=== PATIENT | female | born 1940 | race Caucasian/White ===

== ENCOUNTER 2020-10-04 13:21 | Day surgery (SDC) | payer MEDICARE ==
[2020-10-01 11:14] VITALS: BMI 23.0
[~2020-10-04 13:21] MED LIST: ALBUTEROL NEB (CONC) 2.5 MG/0.5 ML INHALATION ONE; ATROPINE SULFATE 0.4 MG/ML 1 ML VIAL IM ONE; LACTATED RINGERS 1,000 ML IV SCH; LIDOCAINE 1% (10MG/ML) FOR IV START INTRADERMA PRN; LIDOCAINE 2% (PF) 20 MG/ML 5 ML VIAL INHALATION ONE; LIDOCAINE VISCOUS 300 MG/15 ML CUP MUCOUS MEM ONE
[2020-10-04 13:55] LABS: Glucose,Whole Blood 104 mg/dL (75-99)
[2020-10-04] MEDS ORDERED: PROPOFOL 10 MG/ML 20 ML VIAL IV ONE (14:02)
[2020-10-04] MEDS ORDERED: LIDOCAINE 2% INJ 20 MG/ML INTRATRACH ONE (14:15)
[2020-10-04] MEDS ORDERED: ALBUTEROL NEBULIZED 2.5 MG/3 ML INHALATION ONE (14:49)
[2020-10-04 14:54] VITALS: TEMP 97
[2020-10-04 15:23] VITALS: RESP 16
[2020-10-04 15:46] VITALS: BP 140/68; PULSE 78
--- NOTE | 2020-10-04 22:42 | PCN ---
PROCEDURE NOTE PROCEDURE PERFORMED: Bronchoscopy, airway examination, therapeutic lavage, BAL, right middle lobe. OPERATORS: Dr. Navas and Dr. Gunderson. There was informed consent. There was universal timeout, Bryson Álvarez, BRIDGE WORKER provided general anesthesia. Once the patient was adequately sedated and being fully monitored, the bronchoscope was inserted through the left nostril. It passed through the left nasopharynx into the oropharynx. The hypopharynx was identified and topicalized. The anterior commissure, true cords, false cords, arytenoids, piriform sinuses, right and left, epiglottis, and valleculae all appeared relatively normal. Once topicalized, the bronchoscope was inserted through the glottic opening into the trachea. There were thick secretions noted throughout the trachea. The right and left mainstem were topicalized. The right upper lobe and its 3 segments, right middle lobe and its 2 segments, right lower lobe and its 5 segments, the left upper lobe proper and its 2 segments, the lingula and its 2 segments and the left lower lobe and its 4 segments were all evaluated. There were thick secretions noted throughout. They were suctioned. There was diffuse airway erythema and hyperemia. There was no dominant mass or tumor. There was no bleeding. The patient tolerated the procedure well. Thirty mL of fluid was recovered and will be sent to the laboratory for analysis. There was no immediate complication. The patient tolerated the procedure well. MMODL / IJN: [id number] /
--- NOTE | 2020-10-09 05:56 | CDI ---
Outpatient Documentation Clarification Form Date: 10/09/20 CDS/Delivery Driver Name: Caroline Ventura Phone: If any questions, call Sue Fermin Field Administrative Assistant at [phone] Patient Name: Madonna Haddad Admit Date: 10/04/20 Discharge Date: 10/04/20 ATTENTION: The [facility] Coding Staff appreciate your assistance in clarifying documentation. Please respond to the clarification below the line at the bottom and electronically sign. The [facility] Coding staff will review the response and follow-up if needed. Please note: Queries are made part of the Legal Health Record. If you have any questions, please contact the Field Administrative Assistant. Dear Dr. Navas, Please provide clarification as to the procedure performed On the procedure note under Procedure Performed it is listed as therapeutic lavage, BAL, right middle lobe I do not see any documentation for this in the body of the report. Please clarify. Thank you for your kind consideration. MTDD
--- NOTE | 2020-10-11 12:10 | CDI ---
It says in the report Outpatient Documentation Clarification Form Date: 10/09/20 CDS/Junior Manufacturing Engineer Name: Caroline Ventura Phone: If any questions, call Sue Fermin Junior Software Engineer at [phone] Patient Name: Madonna Haddad Admit Date: 10/04/20 Discharge Date: 10/04/20 ATTENTION: The [facility] Coding Staff appreciate your assistance in clarifying documentation. Please respond to the clarification below the line at the bottom and electronically sign. The [facility] Coding staff will review the response and follow-up if needed. Please note: Queries are made part of the Legal Health Record. If you have any questions, please contact the Junior Software Engineer. Dear Dr. Navas, Please provide clarification as to the procedure performed On the procedure note under Procedure Performed it is listed as therapeutic lavage, BAL, right middle lobe I do not see any documentation for this in the body of the report. Please clarify the procedure performed. Thank you for your kind consideration. It says in the report that a BAL was performed in the RML. ELSAD
== END 2020-10-04 16:07 | disposition home or self-care (01) ==
LOC: ORWHC2ENDO 13:21
PROVIDERS: ATTEND Internal Medicine Critical Care Medicine
DX: J44.1 Chronic obstructive pulmonary disease with (acute) exacerbation (principal); I10 Essential (primary) hypertension; J42 Unspecified chronic bronchitis; I48.91 Unspecified atrial fibrillation; K21.9 Gastro-esophageal reflux disease without esophagitis; Z87.09 Personal history of other diseases of the respiratory system; J96.90 Respiratory failure, unspecified, unspecified whether with hypoxia or hypercapnia; Z87.891 Personal history of nicotine dependence; Z98.42 Cataract extraction status, left eye; Z98.41 Cataract extraction status, right eye; Z98.890 Other specified postprocedural states; Z90.89 Acquired absence of other organs; Z82.49 Family history of ischemic heart disease and other diseases of the circulatory system; Z83.3 Family history of diabetes mellitus; Z82.3 Family history of stroke; Z80.9 Family history of malignant neoplasm, unspecified; Z79.01 Long term (current) use of anticoagulants; Z79.51 Long term (current) use of inhaled steroids; Z79.52 Long term (current) use of systemic steroids; Z79.899 Other long term (current) drug therapy; Z88.0 Allergy status to penicillin
CPT/HCPCS: 87798 ×3; 87496; 87498; 87529; 88108; 88305; 87252; 87502; 87634; 87070; 87205; 87116; 87102; 87206; 31624; J2001; J0461; J2704

== ENCOUNTER 2021-08-22 11:52 | Inpatient (IN) | payer MEDICARE ==
--- NOTE | 2021-08-22 15:13 | XR ---
EXAMINATION TYPE: XR chest 1V portable DATE OF EXAM: 08/22/2021 COMPARISON: 07/04/2019 INDICATION: Pain short of breath TECHNIQUE: Single frontal view of the chest is obtained. FINDINGS: The heart size is normal. The pulmonary vasculature is normal. No suspicious infiltrate is evident. There is hyperinflation suggestive for COPD. IMPRESSION: 1. No acute pulmonary process. 2. COPD
[2021-08-22] MEDS ORDERED: IPRATROPIUM-ALBUTEROL 3 ML NEB INHALATION STA ×2 (16:50→19:02)
[2021-08-22 17:27] LABS: Basophils # (A) 0.1 k/uL (0-0.2); Basophils % (A) 1 %; Eosinophils # (A) 0.1 k/uL (0-0.7); Eosinophils % (A) 1 %; HCT 40.4 % (34.0-46.0); HGB 13.5 gm/dL (11.4-16.0); Lymphocytes # (A) 1.2 k/uL (1.0-4.8); Lymphocytes % (A) 16 %; MCH 31.2 pg (25.0-35.0); MCHC 33.5 g/dL (31.0-37.0); MCV 93.2 fL (80.0-100.0); Mean Platelet Volume 6.8; Monocytes # (A) 0.2 k/uL (0-1.0); Monocytes % (A) 3 %; Neutrophils # (A) 5.7 k/uL (1.3-7.7); Neutrophils % (A) 78 %; Platelet Count 353 k/uL (150-450); RBC 4.33 m/uL (3.80-5.40); WBC 7.3 k/uL (3.8-10.6)
[2021-08-22 17:40] LABS: INR 0.9 (<1.2); Partial Thromboplastin Time 23.7 sec (22.0-30.0)
[2021-08-22 17:50] LABS: ALT 22 U/L (4-34); AST 22 U/L (14-36); African American GFR (CKD) >90 (>60 ml/min/1.73 sqM); Albumin 3.9 g/dL (3.5-5.0); Alkaline Phosphatase 54 U/L (38-126); Anion Gap 7 mmol/L; Blood Urea Nitrogen 13 mg/dL (7-17); Carbon Dioxide 28 mmol/L (22-30); Chloride 94 mmol/L (98-107); Glucose 141 mg/dL (74-99); Magnesium 2.1 mg/dL (1.6-2.3); Non-African American GFR(CKD) 87 (>60 ml/min/1.73 sqM); Potassium 4.4 mmol/L (3.5-5.1); Sodium 129 mmol/L (137-145); Total Bilirubin 0.4 mg/dL (0.2-1.3); Total Protein 6.4 g/dL (6.3-8.2)
[2021-08-22] MEDS ORDERED: methylPREDNISolone SOD SUCCI 125 MG/2 ML VIAL IVP ONE (18:13)
[2021-08-22] MEDS ORDERED: SODIUM CHLORIDE 0.9% 500 ML 500 ML IV STA (18:13)
--- NOTE | 2021-08-22 18:36 | ED ---
General Adult HPI - General Chief complaint: Upper Respiratory Infection Stated complaint: Shortness of breath Time Seen by Provider: 08/22/21 16:22 Source: patient Mode of arrival: wheelchair Limitations: no limitations - History of Present Illness Initial comments: This 81-year-old female with a past medical history of COPD presents emergency Department with shortness of breath and cough 1-2 weeks. Patient states she has had a few COPD exacerbations over the last few months and has been placed on different antibiotics along with 10 mg steroids daily. Patient states the first 2 exacerbations over the last few months have subsided with antibiotics and prednisone, however over the last 1-2 weeks patient states her symptoms have significantly worsened. Patient states over the last couple days or shortness of breath has worsened especially with getting up and moving around. Patient states she has been taking albuterol, nebulizer treatments and Symbicort at home along with 10 mg prednisone daily for the last 2 months. Patient states she normally does not need any oxygen during the day, however at night she states she uses 2 L of oxygen via nasal cannula. Patient denies any mucus production, chest pain, nausea, vomiting, change in bowel or bladder, change in appetite, lightheadedness, dizziness, change in vision. - Related Data Home Medications Medication Instructions Recorded Confirmed Albuterol Nebulized [Ventolin 2.5 mg INHALATION RT-QID PRN 10/01/20 08/22/21 Nebulized] Apixaban [Eliquis] 5 mg PO BID 10/01/20 08/22/21 Aspirin 81 mg PO HS 10/01/20 08/22/21 Famotidine [Pepcid] 20 mg PO BID 10/01/20 08/22/21 Loratadine [Claritin] 10 mg PO DAILY 10/01/20 08/22/21 Albuterol Inhaler [Ventolin Hfa 2 puff INHALATION RT-QID PRN 08/22/21 08/22/21 Inhaler] Budesonide/Formoterol Fumarate 2 puff INHALATION RT-BID 08/22/21 08/22/21 [Symbicort 160-4.5 Mcg Inhaler] Diltiazem HCl [Cardizem LA] 120 mg PO DAILY 08/22/21 08/22/21 Doxycycline Monohydrate 100 mg PO BID 08/22/21 08/22/21 Ipratropium-Albuterol Nebulize 3 ml INHALATION RT-QID PRN 08/22/21 08/22/21 [Duoneb 0.5 mg-3 mg/3 ml Soln] Montelukast [Singulair] 10 mg PO DAILY 08/22/21 08/22/21 Phenylephrine 1% Nasal [place] 1 - 2 spray EA NOSTRIL Q4H PRN 08/22/21 08/22/21 [Ronaldo-Synephrine 1% Nasal] predniSONE 1 dose PO DIRECTED 08/22/21 08/22/21 predniSONE See Taper PO DIRECTED 08/22/21 08/22/21 Allergies Allergy/AdvReac Type Severity Reaction Status Date / Time amoxicillin Allergy Rash/Hives Verified 08/22/21 19:26 Penicillins Allergy Rash/Hives Verified 08/22/21 19:26 Review of Systems ROS Statement: Those systems with pertinent positive or pertinent negative responses have been documented in the HPI. ROS Other: All systems not noted in ROS Statement are negative. Past Medical History Past Medical History: Atrial Fibrillation, COPD, GERD/Reflux Additional Past Medical History / Comment(s): oxygen @2l PRN mostly @HS, frequent "infections" in lungs over past year History of Any Multi-Drug Resistant Organisms: None Reported Past Surgical History: Appendectomy, Orthopedic Surgery Additional Past Surgical History / Comment(s): CTS right wrist, cataracts removed Past Anesthesia/Blood Transfusion Reactions: No Reported Reaction Past Psychological History: No Psychological Hx Reported Smoking Status: Former smoker Past Alcohol Use History: None Reported Past Drug Use History: None Reported General Exam Limitations: no limitations General appearance: alert, in no apparent distress Head exam: Present: atraumatic, normocephalic, normal inspection Eye exam: Present: normal appearance, PERRL, EOMI. Absent: scleral icterus, conjunctival injection, periorbital swelling Pupils: Present: normal accommodation ENT exam: Present: normal exam, mucous membranes moist Neck exam: Present: normal inspection, full ROM. Absent: tenderness, meningismus, lymphadenopathy Respiratory exam: Present: normal lung sounds bilaterally, wheezes (Bilateral lungs). Absent: respiratory distress, rales, rhonchi, stridor, chest wall tenderness, accessory muscle use Cardiovascular Exam: Present: regular rate, normal rhythm, normal heart sounds. Absent: systolic murmur, diastolic murmur, rubs, gallop, clicks GI/Abdominal exam: Present: soft, normal bowel sounds. Absent: distended, tenderness, guarding, rebound, rigid Extremities exam: Present: normal inspection, full ROM, normal capillary refill. Absent: tenderness, pedal edema, joint swelling, calf tenderness Back exam: Present: normal inspection (mole in center of back), full ROM. Absent: CVA tenderness (R), CVA tenderness (L), paraspinal tenderness, vertebral tenderness Neurological exam: Present: alert, oriented X3, CN II-XII intact Psychiatric exam: Present: normal affect, normal mood Skin exam: Present: warm, dry, intact, normal color. Absent: rash Course Vital Signs 08/22/21 08/22/21 08/22/21 13:10 17:33 17:45 Temperature 97.7 F Pulse Rate 96 69 82 Respiratory 18 18 Rate Blood Pressure 159/80 O2 Sat by Pulse 90 L Oximetry 08/22/21 08/22/21 08/22/21 18:13 19:12 19:23 Temperature Pulse Rate 80 74 83 Respiratory 18 Rate Blood Pressure 132/78 O2 Sat by Pulse 98 Oximetry 08/22/21 08/22/21 19:35 19:36 Temperature Pulse Rate 90 Respiratory 22 Rate Blood Pressure 131/80 O2 Sat by Pulse 81 L 93 L Oximetry EKG Findings - EKG Comments: EKG Findings:: EKG impression: Sinus rhythm. Ventricular rate 76 bpm. MO interval 138. QRS duration 75. QT/QTc is 368/398. Interpreted by my attending, Dr. Schmitt. Medical Decision Making - Medical Decision Making This 81-year-old female presents to the emergency department with COPD exacerbation. After 2 DuoNeb were administrated, patient denied feeling any better. Fluids and Solu-Medrol given a patient without any relief. Patient still with bilateral course wheezing. When patient got up to Patient on 3L O2 with transfer into a wheelchair to use the bathroom her oxygen did drop to 81% while on 3 L oxygen. On 3L O2 with patient resting in bed, oxygen is remaining around 93% however patient still feels very short of breath. Chest x-ray without any acute pulmonary process. COPD with hyperinflation present. I did speak with Dr. Elaine from [place] [facility] who agreed to admit patient to his service with pulmonology consulted. Discussed case in detail my attending, Dr. Schmitt. Patient verbally agreed to be admitted to the hospital for further workup, evaluation and treatment. - Lab Data Result diagrams: 08/22/21 17:17 08/22/21 17:17 Lab Results 08/22/21 08/22/21 08/22/21 Range/Units 16:50 16:50 17:17 WBC 7.3 (3.8-10.6) k/uL RBC 4.33 (3.80-5.40) m/uL Hgb 13.5 (11.4-16.0) gm/dL Hct 40.4 (34.0-46.0) % MCV 93.2 (80.0-100.0) fL MCH 31.2 (25.0-35.0) pg MCHC 33.5 (31.0-37.0) g/dL RDW 13.0 (11.5-15.5) % Plt Count 353 (150-450) k/uL MPV 6.8 Neutrophils % 78 % Lymphocytes % 16 % Monocytes % 3 % Eosinophils % 1 % Basophils % 1 % Neutrophils # 5.7 (1.3-7.7) k/uL Lymphocytes # 1.2 (1.0-4.8) k/uL Monocytes # 0.2 (0-1.0) k/uL Eosinophils # 0.1 (0-0.7) k/uL Basophils # 0.1 (0-0.2) k/uL PT (9.0-12.0) sec INR (<1.2) APTT (22.0-30.0) sec D-Dimer (<0.60) mg/L FEU Sodium (137-145) mmol/L Potassium (3.5-5.1) mmol/L Chloride (98-107) mmol/L Carbon Dioxide (22-30) mmol/L Anion Gap mmol/L BUN (7-17) mg/dL Creatinine (0.52-1.04) mg/dL Est GFR (CKD-EPI)AfAm (>60 ml/min/1.73 sqM) Est GFR (CKD-EPI)NonAf (>60 ml/min/1.73 sqM) Glucose (74-99) mg/dL Plasma Lactic Acid Omar (0.7-2.0) mmol/L Calcium (8.4-10.2) mg/dL Magnesium (1.6-2.3) mg/dL Total Bilirubin (0.2-1.3) mg/dL AST (14-36) U/L ALT (4-34) U/L Alkaline Phosphatase (38-126) U/L Troponin I (0.000-0.034) ng/mL NT-Pro-B Natriuret Pep pg/mL Total Protein (6.3-8.2) g/dL Albumin (3.5-5.0) g/dL Coronavirus (PCR) Not Detected (Not Detectd) Influenza Type A RNA Not Detected (Not Detectd) Influenza Type B (PCR) Not Detected (Not Detectd) 08/22/21 08/22/21 08/22/21 Range/Units 17:17 17:17 17:17 WBC (3.8-10.6) k/uL RBC (3.80-5.40) m/uL Hgb (11.4-16.0) gm/dL Hct (34.0-46.0) % MCV (80.0-100.0) fL MCH (25.0-35.0) pg MCHC (31.0-37.0) g/dL RDW (11.5-15.5) % Plt Count (150-450) k/uL MPV Neutrophils % % Lymphocytes % % Monocytes % % Eosinophils % % Basophils % % Neutrophils # (1.3-7.7) k/uL Lymphocytes # (1.0-4.8) k/uL Monocytes # (0-1.0) k/uL Eosinophils # (0-0.7) k/uL Basophils # (0-0.2) k/uL PT 10.0 (9.0-12.0) sec INR 0.9 (<1.2) APTT 23.7 (22.0-30.0) sec D-Dimer <0.17 (<0.60) mg/L FEU Sodium 129 L (137-145) mmol/L Potassium 4.4 (3.5-5.1) mmol/L Chloride 94 L (98-107) mmol/L Carbon Dioxide 28 (22-30) mmol/L Anion Gap 7 mmol/L BUN 13 (7-17) mg/dL Creatinine 0.57 (0.52-1.04) mg/dL Est GFR (CKD-EPI)AfAm >90 (>60 ml/min/1.73 sqM) Est GFR (CKD-EPI)NonAf 87 (>60 ml/min/1.73 sqM) Glucose 141 H (74-99) mg/dL Plasma Lactic Acid Omar 1.6 (0.7-2.0) mmol/L Calcium 9.0 (8.4-10.2) mg/dL Magnesium 2.1 (1.6-2.3) mg/dL Total Bilirubin 0.4 (0.2-1.3) mg/dL AST 22 (14-36) U/L ALT 22 (4-34) U/L Alkaline Phosphatase 54 (38-126) U/L Troponin I (0.000-0.034) ng/mL NT-Pro-B Natriuret Pep pg/mL Total Protein 6.4 (6.3-8.2) g/dL Albumin 3.9 (3.5-5.0) g/dL Coronavirus (PCR) (Not Detectd) Influenza Type A RNA (Not Detectd) Influenza Type B (PCR) (Not Detectd) 08/22/21 08/22/21 Range/Units 17:17 17:17 WBC (3.8-10.6) k/uL RBC (3.80-5.40) m/uL Hgb (11.4-16.0) gm/dL Hct (34.0-46.0) % MCV (80.0-100.0) fL MCH (25.0-35.0) pg MCHC (31.0-37.0) g/dL RDW (11.5-15.5) % Plt Count (150-450) k/uL MPV Neutrophils % % Lymphocytes % % Monocytes % % Eosinophils % % Basophils % % Neutrophils # (1.3-7.7) k/uL Lymphocytes # (1.0-4.8) k/uL Monocytes # (0-1.0) k/uL Eosinophils # (0-0.7) k/uL Basophils # (0-0.2) k/uL PT (9.0-12.0) sec INR (<1.2) APTT (22.0-30.0) sec D-Dimer (<0.60) mg/L FEU Sodium (137-145) mmol/L Potassium (3.5-5.1) mmol/L Chloride (98-107) mmol/L Carbon Dioxide (22-30) mmol/L Anion Gap mmol/L BUN (7-17) mg/dL Creatinine (0.52-1.04) mg/dL Est GFR (CKD-EPI)AfAm (>60 ml/min/1.73 sqM) Est GFR (CKD-EPI)NonAf (>60 ml/min/1.73 sqM) Glucose (74-99) mg/dL Plasma Lactic Acid Omar (0.7-2.0) mmol/L Calcium (8.4-10.2) mg/dL Magnesium (1.6-2.3) mg/dL Total Bilirubin (0.2-1.3) mg/dL AST (14-36) U/L ALT (4-34) U/L Alkaline Phosphatase (38-126) U/L Troponin I 0.014 (0.000-0.034) ng/mL NT-Pro-B Natriuret Pep 47 pg/mL Total Protein (6.3-8.2) g/dL Albumin (3.5-5.0) g/dL Coronavirus (PCR) (Not Detectd) Influenza Type A RNA (Not Detectd) Influenza Type B (PCR) (Not Detectd) Disposition Clinical Impression: COPD with acute exacerbation, Hypoxia, Hyponatremia Disposition: ADMITTED IP TO THIS [facility] Condition: Serious Referrals: Haresh Almaraz MD [Primary Care Provider] - 1-2 days
[2021-08-22] MEDS ORDERED: SODIUM CHLORIDE 0.9% 1,000 ML IV STA (19:41)
[2021-08-22] MEDS: IPRATROPIUM-ALBUTEROL 3 ML NEB INHALATION SCH (21:17)
--- NOTE | 2021-08-22 23:41 | P.HPIM ---
History of Present Illness H&P Date: 08/22/21 Patient is an 81-year-old female with a PMH of A. woodrow on Eliquis, COPD, chronic hypoxic respiratory failure on 2 L is a cannula oxygen at night, and GERD who presented to the emergency room complaints of shortness of breath and cough. The patient reports that over the past 2-3 weeks, she has had gradually worsening cough productive of yellow-green phlegm as well as wheezing and shortness breath. She reports being seen by her PCP twice for this complaint, and being prescribed levofloxacin and prednisone, following which she had minimal improvement, and was then prescribed a higher dose of prednisone with doxycycline which also did not alleviate her symptoms. She reports that her symptoms are very much in line with her prior episodes of COPD exacerbation. She reports a significant history of tobacco abuse but states that she quit over a decade ago. She denied experiencing chest discomfort, palpitations, nausea, vomiting, abdominal pain, diarrhea. In the emergency room, the patient had and SpO2 of 81% on 3 L is a cannula oxygen. Laboratory evaluation revealed a sodium of 129 chloride 94, with troponin 0.014. Chest x-ray was consistent with COPD with EKG showing normal sinus rhythm at 76 bpm with T-wave inversion in leads V1 and V2 and poor R-wave progression. Review of systems: Pertinent positives and negatives as discussed in HPI, a complete review of systems was performed and all other systems are negative. Physical examination: General: non toxic, no distress, appears at stated age, normal weight Derm: no unusual rashes/lesions no unusual ecchymoses, warm, dry Head: atraumatic, normocephalic, symmetric Eyes: EOMI, no lid lag, anicteric sclera, pupils equal round reactive to light ENT: Nose and ears atraumatic, no thrush, no pharyngeal erythema Neck: No thyromegaly, no cervical lymphadenopathy, trachea midline, supple Mouth: no lip lesion, mucus membranes moist Cardiovascular: S1S2 reg, no murmur, positive posterior tibial pulse bilateral, no edema, capillary refill less than 2 seconds Lungs: Poor air entry bilaterally with diffuse wheezing, no rales or rhonchi appreciated, no accessory muscle use Abdominal: soft, nontender to palpation, no guarding, no appreciable organomegaly, normal bowel sounds Ext: no gross muscle atrophy, muscle strength 5 out of 5 in all 4 extremities grossly, no contractures, Neuro: CN II-XI grossly intact, light touch intact all 4 extremities, finger to nose within normal limits, Psych: Alert, oriented, appropriate affect Assessment/plan Acute COPD exacerbation with acute on chronic hypoxic respiratory failure -Solu-Medrol 60 mg every 6 hourly -DuoNeb's around the clock and when necessary -Pulmonary consulted -Supplemental oxygen -Check pro calcitonin levels Chronic conditions: A. fib, GERD -Continue home meds DVT prophylaxis -Eliquis The patient is admitted with anticipated less than 2 midnight stay for evaluation of acute COPD CODE STATUS: Full Code Discussed with: Patient Anticipated discharge date: in am Anticipated discharge place: Home Past Medical History Past Medical History: Atrial Fibrillation, COPD, GERD/Reflux Additional Past Medical History / Comment(s): oxygen @2l PRN mostly @HS, frequent "infections" in lungs over past year History of Any Multi-Drug Resistant Organisms: None Reported Past Surgical History: Appendectomy, Orthopedic Surgery Additional Past Surgical History / Comment(s): CTS right wrist, cataracts removed Past Anesthesia/Blood Transfusion Reactions: No Reported Reaction Past Psychological History: No Psychological Hx Reported Smoking Status: Former smoker Past Alcohol Use History: None Reported Past Drug Use History: None Reported Medications and Allergies Home Medications Medication Instructions Recorded Confirmed Type Albuterol Nebulized [Ventolin 2.5 mg INHALATION RT-QID PRN 10/01/20 08/22/21 History Nebulized] Apixaban [Eliquis] 5 mg PO BID 10/01/20 08/22/21 History Aspirin 81 mg PO HS 10/01/20 08/22/21 History Famotidine [Pepcid] 20 mg PO BID 10/01/20 08/22/21 History Loratadine [Claritin] 10 mg PO DAILY 10/01/20 08/22/21 History Albuterol Inhaler [Ventolin Hfa 2 puff INHALATION RT-QID PRN 08/22/21 08/22/21 H istory Inhaler] Budesonide/Formoterol Fumarate 2 puff INHALATION RT-BID 08/22/21 08/22/21 His tory [Symbicort 160-4.5 Mcg Inhaler] Diltiazem HCl [Cardizem LA] 120 mg PO DAILY 08/22/21 08/22/21 History Doxycycline Monohydrate 100 mg PO BID 08/22/21 08/22/21 History Ipratropium-Albuterol Nebulize 3 ml INHALATION RT-QID PRN 08/22/21 08/22/21 History [Duoneb 0.5 mg-3 mg/3 ml Soln] Montelukast [Singulair] 10 mg PO DAILY 08/22/21 08/22/21 History Phenylephrine 1% Nasal [place] 1 - 2 spray EA NOSTRIL Q4H PRN 08/22/21 08/22/21 History [Ronaldo-Synephrine 1% Nasal] predniSONE 1 dose PO DIRECTED 08/22/21 08/22/21 History predniSONE See Taper PO DIRECTED 08/22/21 08/22/21 History Allergies Allergy/AdvReac Type Severity Reaction Status Date / Time amoxicillin Allergy Rash/Hives Verified 08/22/21 19:26 Penicillins Allergy Rash/Hives Verified 08/22/21 19:26 Physical Exam Vitals: Vital Signs Temp Pulse Resp BP Pulse Ox 08/22/21 21:44 78 18 158/86 98 08/22/21 19:36 93 L 08/22/21 19:35 90 22 131/80 81 L 08/22/21 19:23 83 08/22/21 19:12 74 08/22/21 18:13 80 18 132/78 98 08/22/21 17:45 82 08/22/21 17:33 69 18 08/22/21 13:10 97.7 F 96 18 159/80 90 L Intake and Output 08/22/21 08/22/21 08/22/21 06:59 14:59 22:59 Other: Weight 60.328 kg Results CBC & Chem 7: 08/22/21 17:17 08/22/21 17:17 Labs: Abnormal Lab Results - Last 24 Hours (Table) 08/22/21 Range/Units 17:17 Sodium 129 L (137-145) mmol/L Chloride 94 L (98-107) mmol/L Glucose 141 H (74-99) mg/dL
[2021-08-23] MEDS: methylPREDNISolone SOD SUCCI 125 MG/2 ML VIAL IV SCH ×4 (01:13→17:54)
[2021-08-23 01:29] LABS: Appearance,Urine Clear (Clear); Bilirubin,Urine Negative (Negative); Blood,Urine Negative (Negative); Color,Urine Light Yellow; Glucose,Urine (UA) Negative (Negative); Ketones,Urine Negative (Negative); Leukocyte Esterase,Urine Negative (Negative); Nitrite,Urine Negative (Negative); Protein,Urine Negative (Negative); Specific Gravity,Urine 1.007 (1.001-1.035); Urobilinogen,Urine <2.0 mg/dL (<2.0)
[2021-08-23] MEDS: IPRATROPIUM-ALBUTEROL 3 ML NEB INHALATION PRN ×2 (02:05→23:22)
[2021-08-23] MEDS: IPRATROPIUM-ALBUTEROL 3 ML NEB INHALATION SCH ×4 (08:34→19:40)
[2021-08-23] MEDS: SYMBICORT 160-4.5 MCG INHALER INHALATION SCH ×2 (08:34→19:40)
[2021-08-23] MEDS: MONTELUKAST 10 MG TAB PO SCH (08:38)
[2021-08-23] MEDS: DILTIAZEM CD 120 MG CAP.ER.24H PO SCH (08:38)
[2021-08-23] MEDS: APIXABAN 5 MG TAB PO SCH ×2 (08:38→20:16)
[2021-08-23 09:26] LABS: African American GFR (CKD) 98.4 (60.0-200.0); Anion Gap 10.3 mmol/L (10.00-18.00); Blood Urea Nitrogen 12.6 mg/dL (9.0-27.0); Calcium 9.2 mg/dL (8.7-10.3); Carbon Dioxide 28.7 mmol/L (20.0-27.5); Non-African American GFR(CKD) 84.9 (60.0-200.0); Potassium 4.2 mmol/L (3.5-5.5)
--- NOTE | 2021-08-23 13:55 | P.CNPUL ---
History of Present Illness Consult date: 08/23/21 Reason for consult: dyspnea History of present illness: This is a 81-year-old female patient was Hospital as for an acute COPD exacerbation. The patient's been having increased shortness of breath for the past 5-6 days. The patient started off with symptoms of URI and subsequently she started having increased cough and congestion shortness of breath and wheeze. She contacted her primary care physician. The patient was initially given a course of Levaquin and subsequently she was given a course of doxycycline. Nevertheless, her condition did not improve and the patient up coming into the hospital for further evaluation. The patient was Hospital as for an acute COPD exacerbation. The patient is known to have severe COPD with a post-ABLATION FEV1 of 41% of predicted based on a PFT that was done back in 07/04/2019. The patient also has a diffusion capacity of 36% of predicted. Over the past 2 months, the patient has been maintained on 10 mg of prednisone as maintenance pH was in [place] and her symptoms started getting worse after she arrived back to [place]. She has home O2 and she uses it mainly at nighttime at 2 L. She is an ex-smoker and she carries many years of smoking history. No angina. No palpitation. No increased swelling in lower extremities. No altered mentation P chest x-ray is consistent with COPD. No acute airspace 0 pulmonary infiltrates noted. She is able to speak of. This is a for now. Review of Systems Constitutional: Reports fatigue Eyes: denies as per HPI, denies blurred vision, denies bulging eye, denies decreased vision, denies diplopia, denies discharge, denies dry eye, denies irritation, denies itching, denies pain, denies photophobia, denies loss of peripheral vision, denies loss of vision, denies tunnel vision/blind spots Ears: deny: decreased hearing, ear discharge, earache, tinnitus Ears, nose, mouth and throat: Reports as per HPI Breasts: absent: as per HPI, change in shape, gynecomastia, masses, nipple discharge, pain, skin changes, swelling Cardiovascular: Reports decreased exercise tolerance, Reports dyspnea on exertion Respiratory: Reports cough, Reports dyspnea Gastrointestinal: Reports as per HPI Genitourinary: Reports as per HPI Neurological: Reports as per HPI Psychiatric: Reports as per HPI Endocrine: Reports as per HPI Hematologic/Lymphatic: Reports as per HPI Allergic/Immunologic: Reports as per HPI Past Medical History Past Medical History: Atrial Fibrillation, COPD, GERD/Reflux Additional Past Medical History / Comment(s): oxygen @2l PRN mostly @HS, frequent "infections" in lungs over past year, COPD and prednisone 10 mg daily for the past months, she has not infected or vaccinated with COVID 19 History of Any Multi-Drug Resistant Organisms: None Reported Past Surgical History: Appendectomy, Orthopedic Surgery Additional Past Surgical History / Comment(s): CTS right wrist, cataracts removed Past Anesthesia/Blood Transfusion Reactions: No Reported Reaction Past Psychological History: No Psychological Hx Reported Smoking Status: Former smoker Past Alcohol Use History: None Reported Past Drug Use History: None Reported Medications and Allergies Home Medications Medication Instructions Recorded Confirmed Type Albuterol Nebulized [Ventolin 2.5 mg INHALATION RT-QID PRN 10/01/20 08/22/21 History Nebulized] Apixaban [Eliquis] 5 mg PO BID 10/01/20 08/22/21 History Aspirin 81 mg PO HS 10/01/20 08/22/21 History Famotidine [Pepcid] 20 mg PO BID 10/01/20 08/22/21 History Loratadine [Claritin] 10 mg PO DAILY 10/01/20 08/22/21 History Albuterol Inhaler [Ventolin Hfa 2 puff INHALATION RT-QID PRN 08/22/21 08/22/21 History Inhaler] Budesonide/Formoterol Fumarate 2 puff INHALATION RT-BID 08/22/21 08/22/21 History [Symbicort 160-4.5 Mcg Inhaler] Diltiazem HCl [Cardizem LA] 120 mg PO DAILY 08/22/21 08/22/21 History Doxycycline Monohydrate 100 mg PO BID 08/22/21 08/22/21 History Ipratropium-Albuterol Nebulize 3 ml INHALATION RT-QID PRN 08/22/21 08/22/21 History [Duoneb 0.5 mg-3 mg/3 ml Soln] Montelukast [Singulair] 10 mg PO DAILY 08/22/21 08/22/21 History Phenylephrine 1% Nasal [place] 1 - 2 spray EA NOSTRIL Q4H PRN 08/22/21 08/22/21 History [Ronaldo-Synephrine 1% Nasal] predniSONE 1 dose PO DIRECTED 08/22/21 08/22/21 History predniSONE See Taper PO DIRECTED 08/22/21 08/22/21 History Allergies Allergy/AdvReac Type Severity Reaction Status Date / Time amoxicillin Allergy Rash/Hives Verified 08/22/21 19:26 Penicillins Allergy Rash/Hives Verified 08/22/21 19:26 Physical Exam Vitals: Vital Signs Temp Pulse Pulse Resp BP BP Pulse Ox 08/23/21 10:27 90 18 08/23/21 08:50 100 08/23/21 08:35 96 08/23/21 07:04 98.3 F 90 18 170/86 97 08/23/21 02:15 104 H 08/23/21 02:05 100 08/23/21 00:28 97.8 F 102 H 20 164/91 94 L 08/22/21 21:44 78 18 158/86 98 08/22/21 19:36 93 L 08/22/21 19:35 90 22 131/80 81 L 08/22/21 19:23 83 08/22/21 19:12 74 08/22/21 18:13 80 18 132/78 98 08/22/21 17:45 82 08/22/21 17:33 69 18 08/22/21 13:10 97.7 F 96 18 159/80 90 L Intake and Output 08/22/21 08/23/21 08/23/21 22:59 06:59 14:59 Other: Voiding Method Toilet Toilet # Voids 2 Weight 60.328 kg General: non toxic, no distress, appears at stated age, normal weight, the patient's breathing is nonlabored and the patient not using accessory muscles of breathing. Her body mass index is 22.8. Derm: no unusual rashes/lesions no unusual ecchymoses, warm, dry Head: atraumatic, normocephalic, symmetric Eyes: EOMI, no lid lag, anicteric sclera, pupils equal round reactive to light ENT: Nose and ears atraumatic, no thrush, no pharyngeal erythema Neck: No thyromegaly, no cervical lymphadenopathy, trachea midline, supple Mouth: no lip lesion, mucus membranes moist Cardiovascular: S1S2 reg, no murmur, positive posterior tibial pulse bilateral, no edema, capillary refill less than 2 seconds Lungs: Poor air entry bilaterally with diffuse wheezing, no rales or rhonchi appreciated, no accessory muscle use, and there is diffuse expiratory wheezes throughout the lung his bilaterally Abdominal: soft, nontender to palpation, no guarding, no appreciable organomegaly, normal bowel sounds Ext: no gross muscle atrophy, muscle strength 5 out of 5 in all 4 extremities grossly, no contractures, Neuro: CN II-XI grossly intact, light touch intact all 4 extremities, finger to nose within normal limits, Psych: Alert, oriented, appropriate affect Results - Laboratory Findings CBC and BMP: 08/22/21 17:17 08/23/21 06:31 ABG WBC 7.3 k/uL (3.8-10.6) 08/22/21 17:17 RBC 4.33 m/uL (3.80-5.40) 08/22/21 17:17 Hgb 13.5 gm/dL (11.4-16.0) 08/22/21 17:17 Hct 40.4 % (34.0-46.0) 08/22/21 17:17 MCV 93.2 fL (80.0-100.0) 08/22/21 17:17 MCH 31.2 pg (25.0-35.0) 08/22/21 17:17 MCHC 33.5 g/dL (31.0-37.0) 08/22/21 17:17 RDW 13.0 % (11.5-15.5) 08/22/21 17:17 Plt Count 353 k/uL (150-450) 08/22/21 17:17 MPV 6.8 08/22/21 17:17 Neutrophils % 78 % 08/22/21 17:17 Lymphocytes % 16 % 08/22/21 17:17 Monocytes % 3 % 08/22/21 17:17 Eosinophils % 1 % 08/22/21 17:17 Basophils % 1 % 08/22/21 17:17 Neutrophils # 5.7 k/uL (1.3-7.7) 08/22/21 17:17 Lymphocytes # 1.2 k/uL (1.0-4.8) 08/22/21 17:17 Monocytes # 0.2 k/uL (0-1.0) 08/22/21 17:17 Eosinophils # 0.1 k/uL (0-0.7) 08/22/21 17:17 Basophils # 0.1 k/uL (0-0.2) 08/22/21 17:17 PT 10.0 sec (9.0-12.0) 08/22/21 17:17 INR 0.9 (<1.2) 08/22/21 17:17 APTT 23.7 sec (22.0-30.0) 08/22/21 17:17 D-Dimer <0.17 mg/L FEU (<0.60) 08/22/21 17:17 Sodium 133 mmol/L (135-145) L 08/23/21 06:31 Potassium 4.2 mmol/L (3.5-5.5) 08/23/21 06:31 Chloride 94 mmol/L (96-109) L 08/23/21 06:31 Carbon Dioxide 28.7 mmol/L (20.0-27.5) H 08/23/21 06:31 Anion Gap 10.30 mmol/L (10.00-18.00) 08/23/21 06:31 BUN 12.6 mg/dL (9.0-27.0) 08/23/21 06:31 Creatinine 0.6 mg/dL (0.6-1.5) 08/23/21 06:31 Est GFR (CKD-EPI)AfAm 98.4 (60.0-200.0) 08/23/21 06:31 Est GFR (CKD-EPI)NonAf 84.9 (60.0-200.0) 08/23/21 06:31 BUN/Creatinine Ratio 21.00 Ratio (12.00-20.00) H 08/23/21 06:31 Glucose 138 mg/dL (70-110) H 08/23/21 06:31 Plasma Lactic Acid Omar 1.6 mmol/L (0.7-2.0) 08/22/21 17:17 Calcium 9.2 mg/dL (8.7-10.3) 08/23/21 06:31 Magnesium 2.1 mg/dL (1.6-2.3) 08/22/21 17:17 Total Bilirubin 0.4 mg/dL (0.2-1.3) 08/22/21 17:17 AST 22 U/L (14-36) 08/22/21 17:17 ALT 22 U/L (4-34) 08/22/21 17:17 Alkaline Phosphatase 54 U/L (38-126) 08/22/21 17:17 Troponin I 0.014 ng/mL (0.000-0.034) 08/22/21 17:17 NT-Pro-B Natriuret Pep 47 pg/mL 08/22/21 17:17 Total Protein 6.4 g/dL (6.3-8.2) 08/22/21 17:17 Albumin 3.9 g/dL (3.5-5.0) 08/22/21 17:17 Procalcitonin 0.04 ng/mL (0.02-0.09) 08/23/21 06:31 Urine Color Light Yellow 08/22/21 19:52 Urine Appearance Clear (Clear) 08/22/21 19:52 Urine pH 7.0 (5.0-8.0) 08/22/21 19:52 Ur Specific [place] 1.007 (1.001-1.035) 08/22/21 19:52 Urine Protein Negative (Negative) 08/22/21 19:52 Urine Glucose (UA) Negative (Negative) 08/22/21 19:52 Urine Ketones Negative (Negative) 08/22/21 19:52 Urine Blood Negative (Negative) 08/22/21 19:52 Urine Nitrite Negative (Negative) 08/22/21 19:52 Urine Bilirubin Negative (Negative) 08/22/21 19:52 Urine Urobilinogen <2.0 mg/dL (<2.0) 08/22/21 19:52 Ur Leukocyte Esterase Negative (Negative) 08/22/21 19:52 Coronavirus (PCR) Not Detected (Not Detectd) 08/22/21 16:50 Influenza Type A RNA Not Detected (Not Detectd) 08/22/21 16:50 Influenza Type B (PCR) Not Detected (Not Detectd) 08/22/21 16:50 PT/INR, D-dimer PT 10.0 sec (9.0-12.0) 08/22/21 17:17 INR 0.9 (<1.2) 08/22/21 17:17 D-Dimer <0.17 mg/L FEU (<0.60) 08/22/21 17:17 Abnormal lab findings: Abnormal Labs 08/22/21 08/23/21 17:17 06:31 Sodium 129 L 133 L Chloride 94 L 94 L Carbon Dioxide 28.7 H BUN/Creatinine Ratio 21.00 H Glucose 141 H 138 H - Diagnostic Findings Chest x-ray: image reviewed Assessment and Plan Plan: 1 acute exacerbation of COPD with secondary shortness of breath. The patient was treated with antibiotics on outpatient basis without any improvement. The patient end up coming into the hospital for further evaluation and treatment. Chest x-ray is free of any acute pulmonary infiltrate pH has completed a course of Levaquin and later on doxycycline on an outpatient basis 2 severe COPD with an FEV1 ranging between 36 and 41% of predicted 3 chronic hypoxic respiratory failure maintained on O2 at nighttime only at 2 L 4 chronic atrial fibrillation maintained on anticoagulation with Eliquis 5 mg by mouth twice a day and Cardizem 5 hypertension Plan Admit this patient for COPD exacerbation treatment as the patient failed outpatient therapy Subjective patient IV Solu-Medrol systemic grams every 6 hours Continue DuoNeb and it seems [id number] 4 times a day Resume long-term anticoagulation with Eliquis Continue Symbicort 2 puffs twice a day Oxygen therapy to maintenance saturation above 90% COVID 19 testing is been negative Influenza screen has been negative We'll continue to follow
--- NOTE | 2021-08-23 16:03 | P.PN ---
Subjective Progress Note Date: 08/23/21 Principal diagnosis: COPD exacerbation Patient is an 81-year-old female with a PMH of ANithin troy on Eliquis, COPD, chronic hypoxic respiratory failure on 2 L is a cannula oxygen at night, and GERD who presented to the emergency room complaints of shortness of breath and cough. The patient reports that over the past 2-3 weeks, she has had gradually worsening cough productive of yellow-green phlegm as well as wheezing and shortness breath. She reports being seen by her PCP twice for this complaint, and being prescribed levofloxacin and prednisone, following which she had minima l improvement, and was then prescribed a higher dose of prednisone with doxycycline which also did not alleviate her symptoms. Patient was admitted to the hospital for failed outpatient treatment of acute exacerbation of COPD 08/23/2021. Patient continues to feel symptomatic. Continues to have wheezing difficulty breathing. Denies any nausea vomiting fever or chills. Pulmonary care team following as well Objective - Vital Signs Vital signs: Vital Signs Temp 98 F 08/23/21 14:00 Pulse 99 08/23/21 15:08 Resp 18 08/23/21 14:00 BP 134/77 08/23/21 14:00 Pulse Ox 92 L 08/23/21 14:00 Intake & Output 08/22/21 08/23/21 08/23/21 18:59 06:59 18:59 Intake Total 120 Balance 120 Weight 60.328 kg 60.328 kg Intake: Oral 120 Other: Voiding Method Toilet Toilet # Voids 2 1 - Exam General: non toxic, no distress, appears at stated age, normal weight Derm: no unusual rashes/lesions no unusual ecchymoses, warm, dry Head: atraumatic, normocephalic, symmetric Eyes: EOMI, no lid lag, anicteric sclera, pupils equal round reactive to light ENT: Nose and ears atraumatic, no thrush, no pharyngeal erythema Neck: No thyromegaly, no cervical lymphadenopathy, trachea midline, supple Mouth: no lip lesion, mucus membranes moist Cardiovascular: S1S2 reg, no murmur, positive posterior tibial pulse bilateral, no edema, capillary refill less than 2 seconds Lungs: Poor air entry bilaterally with diffuse wheezing, no rales or rhonchi appreciated, no accessory muscle use Abdominal: soft, nontender to palpation, no guarding, no appreciable organomegaly, normal bowel sounds Ext: no gross muscle atrophy, muscle strength 5 out of 5 in all 4 extremities grossly, no contractures, Neuro: CN II-XI grossly intact, light touch intact all 4 extremities, finger to nose within normal limits, Psych: Alert, oriented, appropriate affect - Labs CBC & Chem 7: 08/22/21 17:17 08/23/21 06:31 Labs: Abnormal Lab Results - Last 24 Hours (Table) 08/22/21 08/23/21 Range/Units 17:17 06:31 Sodium 129 L 133 L (137-145) mmol/L Chloride 94 L 94 L (98-107) mmol/L Carbon Dioxide 28.7 H (20.0-27.5) mmol/L BUN/Creatinine Ratio 21.00 H (12.00-20.00) Ratio Glucose 141 H 138 H (74-99) mg/dL Assessment and Plan (1) COPD with acute exacerbation Current Visit: Yes Status: Acute Code(s): J44.1 - CHRONIC OBSTRUCTIVE PULMONARY DISEASE W (ACUTE) EXACERBATION SNOMED Code(s): 571962234 Plan: Acute COPD exacerbation with acute on chronic hypoxic respiratory failure -Patient currently requiring 5 L nasal cannula to maintain oxygen saturation greater than 90% -Solu-Medrol 60 mg every 6 hourly -DuoNeb's 4 times a day -Budesonide -Pulmonary team following -No evidence of pneumonia seen on imaging Chronic conditions: A. fib, GERD -Continue with up eliquis, aspirin, diltiazem DVT prophylaxis -Eliquis The patient is admitted with anticipated less than 2 midnight stay for evaluation of acute COPD CODE STATUS: Full Code Discussed with: Patient Anticipated discharge date: Dependent on hospital course. Expect 2-[address]: Home
[2021-08-23] MEDS: ASPIRIN 81 MG PO SCH (20:16)
[2021-08-24] MEDS: methylPREDNISolone SOD SUCCI 125 MG/2 ML VIAL IV SCH ×4 (01:19→18:14)
[2021-08-24] MEDS: IPRATROPIUM-ALBUTEROL 3 ML NEB INHALATION PRN (02:46)
[2021-08-24] MEDS: SYMBICORT 160-4.5 MCG INHALER INHALATION SCH ×2 (07:09→19:22)
[2021-08-24] MEDS: IPRATROPIUM-ALBUTEROL 3 ML NEB INHALATION SCH ×4 (07:09→19:22)
[2021-08-24] MEDS: MONTELUKAST 10 MG TAB PO SCH (09:19)
[2021-08-24] MEDS: DILTIAZEM CD 120 MG CAP.ER.24H PO SCH (09:19)
[2021-08-24] MEDS: APIXABAN 5 MG TAB PO SCH ×2 (09:20→20:13)
--- NOTE | 2021-08-24 13:19 | P.PN ---
Subjective Progress Note Date: 08/24/21 This is a 81-year-old female patient was Hospital as for an acute COPD exacerbation. The patient's been having increased shortness of breath for the past 5-6 days. The patient started off with symptoms of URI and subsequently she started having increased cough and congestion shortness of breath and whee ze. She contacted her primary care physician. The patient was initially given a course of Levaquin and subsequently she was given a course of doxycycline. Nevertheless, her condition did not improve and the patient up coming into the hospital for further evaluation. The patient was Hospital as for an acute COPD exacerbation. The patient is known to have severe COPD with a post-ABLATION FEV1 of 41% of predicted based on a PFT that was done back in 07/04/2019. The patient also has a diffusion capacity of 36% of predicted. Over the past 2 months, the patient has been maintained on 10 mg of prednisone as maintenance pH was in [place] and her symptoms started getting worse after she arrived back to [place]. She has home O2 and she uses it mainly at nighttime at 2 L. She is an ex-smoker and she carries many years of smoking history. No angina. No palpitation. No increased swelling in lower extremities. No altered mentation P chest x-ray is consistent with COPD. No acute airspace 0 pulmonary infiltrates noted. She is able to speak of. This is a for now. The patient is seen today 08/24/2021 in follow-up on the regular medical floor. She is currently sitting up in a chair at the bedside. Awake and alert in no acute distress. She is maintaining O2 saturations in the 90s on 3 L/m per nasal cannula. She is breathing a bit easier today compared to yesterday. A bit less anxious. Pro-calcitonin 0.04. She is continued on DuoNeb inhalations, Symbicort, IV Solu-Medrol, Singulair. Anticoagulated with Eliquis. Objective - Vital Signs Vital signs: Vital Signs Temp 97.9 F 08/24/21 07:13 Pulse 89 08/24/21 11:17 Resp 18 08/24/21 07:13 BP 141/82 08/24/21 07:13 Pulse Ox 94 L 08/24/21 07:13 Intake & Output 08/23/21 08/24/21 08/24/21 18:59 06:59 18:59 Intake Total 120 118 Balance 120 118 Intake: Oral 120 118 Other: Voiding Method Toilet Toilet # Voids 1 1 1 - Exam GENERAL EXAM: Alert, frail, anxious 81-year-old female patient 3 L nasal cannula, comfortable in no apparent distress. HEAD: Normocephalic. EYES: Normal reaction of pupils, equal size. NOSE: Clear with pink turbinates. THROAT: No erythema or exudates. NECK: No masses, no JVD. CHEST: No chest wall deformity. LUNGS: Equal air entry with bilateral end expiratory wheeze,diminished. CVS: S1 and S2 normal with no audible murmur, regular rhythm. ABDOMEN: No hepatosplenomegaly, normal bowel sounds, no guarding or rigidity. SPINE: No scoliosis or deformity SKIN: No rashes CENTRAL NERVOUS SYSTEM: No focal deficits, tone is normal in all 4 extremities. EXTREMITIES: There is no peripheral edema. No clubbing, no cyanosis. Peripheral pulses are intact. - Labs CBC & Chem 7: 08/22/21 17:17 08/23/21 06:31 Assessment and Plan Assessment: Acute exacerbation of COPD with secondary shortness of breath. The patient was treated with antibiotics on outpatient basis without any improvement. The patient end up coming into the hospital for further evaluation and treatment. Chest x-ray is free of any acute pulmonary infiltrate pH has completed a course of Levaquin and later on doxycycline on an outpatient basis Severe COPD with an FEV1 ranging between 36 and 41% of predicted Chronic hypoxic respiratory failure maintained on O2 at nighttime only at 2 L Chronic atrial fibrillation maintained on anticoagulation with Eliquis 5 mg by mouth twice a day and Cardizem Hypertension Plan: The patient was seen and evaluated Improved today compared to yesterday Not quite back to her baseline Continue Symbicort, DuoNeb, IV Solu-Medrol Titrate FiO2 as tolerated We will continue to follow I have personally seen and examined the patient, performed the documentation and the assessment and plan as written. Number of minutes spent on the visit: 10. I have personally seen and examined the patient and reviewed the documentation. I performed a joint evaluation with the nurse practitioner in this evaluation was done more than 20 minutes. I fully agree with the documentation above and the plan of care. Clinically the patient is much improved compared to yesterday. She continues to improve, we'll continue the bronchial dilated and throat for another 24 hours. Phlebotomy for now. She is less anxious compared to yesterday. We'll continue to follow.
--- NOTE | 2021-08-24 14:09 | P.PN ---
Subjective Progress Note Date: 08/24/21 Principal diagnosis: COPD exacerbation Patient is an 81-year-old female with a PMH of ANithin troy on Eliquis, COPD, chronic hypoxic respiratory failure on 2 L is a cannula oxygen at night, and GERD who presented to the emergency room complaints of shortness of breath and cough. The patient reports that over the past 2-3 weeks, she has had gradually worsening cough productive of yellow-green phlegm as well as wheezing and shortness breath. She reports being seen by her PCP twice for this complaint, and being prescribed levofloxacin and prednisone, following which she had minima l improvement, and was then prescribed a higher dose of prednisone with doxycycline which also did not alleviate her symptoms. Patient was admitted to the hospital for failed outpatient treatment of acute exacerbation of COPD 08/24/2021. Patient's overall respiratory status has improved. Her oxygen requirement has decreased. She states that she's feeling better. She continues to remain wheezy Objective - Vital Signs Vital signs: Vital Signs Temp 97.9 F 08/24/21 07:13 Pulse 89 08/24/21 11:17 Resp 18 08/24/21 07:13 BP 141/82 08/24/21 07:13 Pulse Ox 94 L 08/24/21 07:13 Intake & Output 08/23/21 08/24/21 08/24/21 18:59 06:59 18:59 Intake Total 120 118 Balance 120 118 Intake: Oral 120 118 Other: Voiding Method Toilet Toilet # Voids 1 1 1 - Exam General: non toxic, no distress, appears at stated age, normal weight Derm: no unusual rashes/lesions no unusual ecchymoses, warm, dry Head: atraumatic, normocephalic, symmetric Eyes: EOMI, no lid lag, anicteric sclera, pupils equal round reactive to light ENT: Nose and ears atraumatic, no thrush, no pharyngeal erythema Neck: No thyromegaly, no cervical lymphadenopathy, trachea midline, supple Mouth: no lip lesion, mucus membranes moist Cardiovascular: S1S2 reg, no murmur, positive posterior tibial pulse bilateral, no edema, capillary refill less than 2 seconds Lungs: Bilateral diffuse wheezing auscultated Abdominal: soft, nontender to palpation, no guarding, no appreciable organomegaly, normal bowel sounds Ext: no gross muscle atrophy, muscle strength 5 out of 5 in all 4 extremities grossly, no contractures, Neuro: CN II-XI grossly intact, light touch intact all 4 extremities, finger to nose within normal limits, Psych: Alert, oriented, appropriate affect - Labs CBC & Chem 7: 08/22/21 17:17 08/23/21 06:31 Assessment and Plan (1) COPD with acute exacerbation Current Visit: Yes Status: Acute Code(s): J44.1 - CHRONIC OBSTRUCTIVE PULMONARY DISEASE W (ACUTE) EXACERBATION SNOMED Code(s): 511703767 Plan: Acute COPD exacerbation with acute on chronic hypoxic respiratory failure -Patient's respiratory function improved. Currently on 3 L nasal cannula which has improved from 5 L nasal cannula -Solu-Medrol 60 mg every 6 hourly -DuoNeb's 4 times a day -Budesonide -Pulmonary team following -No evidence of pneumonia seen on imaging Chronic conditions: A. fib, GERD -Continue with eliquis, aspirin, diltiazem -Had Protonix daily DVT prophylaxis -Eliquis The patient is admitted with anticipated less than 2 midnight stay for evaluation of acute COPD CODE STATUS: Full Code Discussed with: Patient Anticipated discharge date: Dependent on hospital course. Expect 2-[address]: Home
[2021-08-24] MEDS: ASPIRIN 81 MG PO SCH (20:13)
[2021-08-25] MEDS: methylPREDNISolone SOD SUCCI 125 MG/2 ML VIAL IV SCH ×4 (00:56→18:36)
[2021-08-25] MEDS: IPRATROPIUM-ALBUTEROL 3 ML NEB INHALATION PRN (01:07)
[2021-08-25] MEDS: IPRATROPIUM-ALBUTEROL 3 ML NEB INHALATION SCH ×4 (08:17→18:59)
[2021-08-25] MEDS: SYMBICORT 160-4.5 MCG INHALER INHALATION SCH ×2 (08:18→18:59)
[2021-08-25] MEDS: APIXABAN 5 MG TAB PO SCH ×2 (09:43→20:03)
[2021-08-25] MEDS: MONTELUKAST 10 MG TAB PO SCH (09:43)
[2021-08-25] MEDS: DILTIAZEM CD 120 MG CAP.ER.24H PO SCH (09:43)
[2021-08-25] MEDS: PANTOPRAZOLE 40 MG TABLET PO SCH (09:43)
[2021-08-25 10:35] LABS: African American GFR (CKD) 98.4 (60.0-200.0); Anion Gap 10.5 mmol/L (10.00-18.00); Calcium 9.1 mg/dL (8.7-10.3); Carbon Dioxide 29.5 mmol/L (20.0-27.5); Non-African American GFR(CKD) 84.9 (60.0-200.0); Potassium 4.6 mmol/L (3.5-5.5)
--- NOTE | 2021-08-25 11:52 | P.PN ---
Subjective Progress Note Date: 08/25/21 This is a 81-year-old female patient was Hospital as for an acute COPD exacerbation. The patient's been having increased shortness of breath for the past 5-6 days. The patient started off with symptoms of URI and subsequently she started having increased cough and congestion shortness of breath and whee ze. She contacted her primary care physician. The patient was initially given a course of Levaquin and subsequently she was given a course of doxycycline. Nevertheless, her condition did not improve and the patient up coming into the hospital for further evaluation. The patient was Hospital as for an acute COPD exacerbation. The patient is known to have severe COPD with a post-ABLATION FEV1 of 41% of predicted based on a PFT that was done back in 07/04/2019. The patient also has a diffusion capacity of 36% of predicted. Over the past 2 months, the patient has been maintained on 10 mg of prednisone as maintenance pH was in [place] and her symptoms started getting worse after she arrived back to [place]. She has home O2 and she uses it mainly at nighttime at 2 L. She is an ex-smoker and she carries many years of smoking history. No angina. No palpitation. No increased swelling in lower extremities. No altered mentation P chest x-ray is consistent with COPD. No acute airspace 0 pulmonary infiltrates noted. She is able to speak of. This is a for now. The patient is seen today 08/24/2021 in follow-up on the regular medical floor. She is currently sitting up in a chair at the bedside. Awake and alert in no acute distress. She is maintaining O2 saturations in the 90s on 3 L/m per nasal cannula. She is breathing a bit easier today compared to yesterday. A bit less anxious. Pro-calcitonin 0.04. She is continued on DuoNeb inhalations, Symbicort, IV Solu-Medrol, Singulair. Anticoagulated with Eliquis. The patient is seen today 08/25/2021 in follow-up on the regular medical floor. She is awake and alert in no acute distress. Continues to improve daily. Still not quite back to her baseline. Maintaining O2 saturations in the mid 90s on 3 L/m per nasal cannula. She's afebrile. Hemodynamically stable. Sodium 133. Potassium 4.6. BUN 21. Creatinine 0.6. Glucose 20. Procalcitonin 0.04. She is continued on Symbicort, Singulair, DuoNeb inhalations, IV Solu-Medrol. Anticoagulated with Eliquis Objective - Vital Signs Vital signs: Vital Signs Temp 97.7 F 08/25/21 07:57 Pulse 84 08/25/21 08:27 Resp 16 08/25/21 07:57 BP 146/72 08/25/21 07:57 Pulse Ox 95 08/25/21 07:57 Intake & Output 08/24/21 08/25/21 08/25/21 18:59 06:59 18:59 Intake Total 118 240 Balance 118 240 Intake: Oral 118 240 Other: Voiding Method Toilet # Voids 2 1 - Exam GENERAL EXAM: Alert, frail, 81-year-old female patient 3 L nasal cannula, comfortable in no apparent distress. HEAD: Normocephalic. EYES: Normal reaction of pupils, equal size. NOSE: Clear with pink turbinates. THROAT: No erythema or exudates. NECK: No masses, no JVD. CHEST: No chest wall deformity. LUNGS: Equal air entry with bilateral end expiratory wheeze,diminished. CVS: S1 and S2 normal with no audible murmur, regular rhythm. ABDOMEN: No hepatosplenomegaly, normal bowel sounds, no guarding or rigidity. SPINE: No scoliosis or deformity SKIN: No rashes CENTRAL NERVOUS SYSTEM: No focal deficits, tone is normal in all 4 extremities. EXTREMITIES: There is no peripheral edema. No clubbing, no cyanosis. Peripheral pulses are intact. - Labs CBC & Chem 7: 08/22/21 17:17 08/25/21 06:23 Labs: Abnormal Lab Results - Last 24 Hours (Table) 08/25/21 Range/Units 06:23 Sodium 133 L (135-145) mmol/L Chloride 93 L (96-109) mmol/L Carbon Dioxide 29.5 H (20.0-27.5) mmol/L BUN/Creatinine Ratio 35.00 H (12.00-20.00) Ratio Glucose 203 H (70-110) mg/dL Assessment and Plan Assessment: Acute exacerbation of COPD with secondary shortness of breath. The patient was treated with antibiotics on outpatient basis without any improvement. The patient end up coming into the hospital for further evaluation and treatment. Chest x-ray is free of any acute pulmonary infiltrate pH has completed a course of Levaquin and later on doxycycline on an outpatient basis. Pro-calcitonin 0.04. Severe COPD with an FEV1 ranging between 36 and 41% of predicted Chronic hypoxic respiratory failure maintained on O2 at nighttime only at 2 L Chronic atrial fibrillation maintained on anticoagulation with Eliquis 5 mg by mouth twice a day and Cardizem Hypertension Plan: The patient was seen and evaluated Labs and medications reviewed Not quite back to her baseline Continue Symbicort, DuoNeb, IV Solu-Medrol Titrate FiO2 as tolerated Probable home in the a.m. We will continue to follow I have personally seen and examined the patient, performed the documentation and the assessment and plan as written. Number of minutes spent on the visit: 10. I have personally seen and examined the patient and reviewed the documentation. I performed a joint evaluation with the nurse practitioner in this evaluation was done more than 20 minutes. I fully agree with the documentation above and the plan of care.. The patient is doing well. The patient will be kept on IV Solu Medrol for another 24 hours. We'll start tapering steroids as of tomorrow. Doing well. No new complaints.
--- NOTE | 2021-08-25 12:27 | P.PN ---
Subjective Progress Note Date: 08/25/21 Principal diagnosis: sob Feeling better today but not quite back to baseline. She states that she feels about 50% better compared to admission. Still with cough and congestion. No fevers or chills. No pain. Objective - Vital Signs Vital signs: Vital Signs Temp 97.7 F 08/25/21 07:57 Pulse 80 08/25/21 11:55 Resp 16 08/25/21 07:57 BP 146/72 08/25/21 07:57 Pulse Ox 94 L 08/25/21 09:30 Intake & Output 08/24/21 08/25/21 08/25/21 18:59 06:59 18:59 Intake Total 118 240 Balance 118 240 Intake: Oral 118 240 Other: Voiding Method Toilet # Voids 2 1 - Exam General: non toxic, no distress, appears at stated age, normal weight Derm: no unusual rashes/lesions no unusual ecchymoses, warm, dry Head: atraumatic, normocephalic, symmetric Eyes: EOMI, no lid lag, anicteric sclera, pupils equal round reactive to light ENT: Nose and ears atraumatic, no thrush, no pharyngeal erythema Neck: No thyromegaly, no cervical lymphadenopathy, trachea midline, supple Mouth: no lip lesion, mucus membranes moist Cardiovascular: S1S2 reg, no murmur, positive posterior tibial pulse bilateral, no edema, capillary refill less than 2 seconds Lungs: Bilateral diffuse wheezing auscultated Abdominal: soft, nontender to palpation, no guarding, no appreciable organomegaly, normal bowel sounds Ext: no gross muscle atrophy, muscle strength 5 out of 5 in all 4 extremities grossly, no contractures, Neuro: CN II-XI grossly intact, light touch intact all 4 extremities, finger to nose within normal limits, Psych: Alert, oriented, appropriate affect - Labs CBC & Chem 7: 08/22/21 17:17 08/25/21 06:23 Labs: Abnormal Lab Results - Last 24 Hours (Table) 08/25/21 Range/Units 06:23 Sodium 133 L (135-145) mmol/L Chloride 93 L (96-109) mmol/L Carbon Dioxide 29.5 H (20.0-27.5) mmol/L BUN/Creatinine Ratio 35.00 H (12.00-20.00) Ratio Glucose 203 H (70-110) mg/dL Assessment and Plan Plan: Acute COPD exacerbation with acute on chronic hypoxic respiratory failure -Currently on 3 L nasal cannula which has improved from 5 L nasal cannula--try to wean down, she is not on O2 at baseline, only wears 2L at night. -Solu-Medrol 60 mg every 6 hourly -DuoNeb's 4 times a day -Budesonide -Add mucinex -Pulmonary team following -No evidence of pneumonia seen on imaging Chronic conditions: A. fib, GERD -Continue with eliquis, aspirin, diltiazem -Had Protonix daily DVT prophylaxis -Eliquis CODE STATUS: Full Code Discussed with: Patient Anticipated discharge date: in am Anticipated discharge place: Home
[2021-08-25] MEDS: ASPIRIN 81 MG PO SCH (20:04)
[2021-08-25] MEDS ORDERED: MAGNESIUM HYDROXIDE 2,400 MG/10 ML CUP PO PRN (20:15)
[2021-08-25] MEDS: guaiFENesin 600 MG TABLET.ER PO SCH (21:51)
[2021-08-26] MEDS: methylPREDNISolone SOD SUCCI 125 MG/2 ML VIAL IV SCH ×4 (00:55→17:59)
[2021-08-26] MEDS: IPRATROPIUM-ALBUTEROL 3 ML NEB INHALATION PRN (01:06)
[2021-08-26] MEDS: IPRATROPIUM-ALBUTEROL 3 ML NEB INHALATION SCH ×4 (07:25→19:12)
[2021-08-26] MEDS: SYMBICORT 160-4.5 MCG INHALER INHALATION SCH (07:25)
[2021-08-26] MEDS: PANTOPRAZOLE 40 MG TABLET PO SCH (07:49)
[2021-08-26] MEDS: APIXABAN 5 MG TAB PO SCH ×3 (07:58→19:59)
[2021-08-26] MEDS: MONTELUKAST 10 MG TAB PO SCH (07:58)
[2021-08-26] MEDS: guaiFENesin 600 MG TABLET.ER PO SCH (07:58)
[2021-08-26] MEDS: DILTIAZEM CD 120 MG CAP.ER.24H PO SCH (07:59)
--- NOTE | 2021-08-26 13:56 | P.PN ---
Subjective Progress Note Date: 08/26/21 This is a 81-year-old female patient was Hospital as for an acute COPD exacerbation. The patient's been having increased shortness of breath for the past 5-6 days. The patient started off with symptoms of URI and subsequently she started having increased cough and congestion shortness of breath and whee ze. She contacted her primary care physician. The patient was initially given a course of Levaquin and subsequently she was given a course of doxycycline. Nevertheless, her condition did not improve and the patient up coming into the hospital for further evaluation. The patient was Hospital as for an acute COPD exacerbation. The patient is known to have severe COPD with a post-ABLATION FEV1 of 41% of predicted based on a PFT that was done back in 07/04/2019. The patient also has a diffusion capacity of 36% of predicted. Over the past 2 months, the patient has been maintained on 10 mg of prednisone as maintenance pH was in [place] and her symptoms started getting worse after she arrived back to [place]. She has home O2 and she uses it mainly at nighttime at 2 L. She is an ex-smoker and she carries many years of smoking history. No angina. No palpitation. No increased swelling in lower extremities. No altered mentation P chest x-ray is consistent with COPD. No acute airspace 0 pulmonary infiltrates noted. She is able to speak of. This is a for now. The patient is seen today 08/24/2021 in follow-up on the regular medical floor. She is currently sitting up in a chair at the bedside. Awake and alert in no acute distress. She is maintaining O2 saturations in the 90s on 3 L/m per nasal cannula. She is breathing a bit easier today compared to yesterday. A bit less anxious. Pro-calcitonin 0.04. She is continued on DuoNeb inhalations, Symbicort, IV Solu-Medrol, Singulair. Anticoagulated with Eliquis. The patient is seen today 08/25/2021 in follow-up on the regular medical floor. She is awake and alert in no acute distress. Continues to improve daily. Still not quite back to her baseline. Maintaining O2 saturations in the mid 90s on 3 L/m per nasal cannula. She's afebrile. Hemodynamically stable. Sodium 133. Potassium 4.6. BUN 21. Creatinine 0.6. Glucose 20. Procalcitonin 0.04. She is continued on Symbicort, Singulair, DuoNeb inhalations, IV Solu-Medrol. Anticoagulated with Eliquis 08/26/2021, the patient is slightly more short of breath compared to yesterday. She does demonstrate improvement initially and today she seems to have had a setback. She has still on oxygen and she is also on bronchodilators and steroids with IV ceruminosis milligrams every 6 hours. She has chronic anxiety. No new labs for today. She is afebrile. She's hemoglobin is stable. Pro- calcitonin level has been low. Objective - Vital Signs Vital signs: Vital Signs Temp 97.7 F 08/26/21 13:53 Pulse 86 08/26/21 13:53 Resp 17 08/26/21 13:53 BP 146/76 08/26/21 13:53 Pulse Ox 95 08/26/21 13:53 Intake & Output 08/25/21 08/26/21 08/26/21 18:59 06:59 18:59 Intake Total 660 250 360 Balance 660 250 360 Intake: Oral 660 250 360 Other: Voiding Method Toilet Toilet # Voids 5 # Bowel Movements 1 - Exam GENERAL EXAM: Alert, frail, 81-year-old female patient 3 L nasal cannula, comfortable in no apparent distress. HEAD: Normocephalic. EYES: Normal reaction of pupils, equal size. NOSE: Clear with pink turbinates. THROAT: No erythema or exudates. NECK: No masses, no JVD. CHEST: No chest wall deformity. LUNGS: Equal air entry with bilateral end expiratory wheeze,diminished. CVS: S1 and S2 normal with no audible murmur, regular rhythm. ABDOMEN: No hepatosplenomegaly, normal bowel sounds, no guarding or rigidity. SPINE: No scoliosis or deformity SKIN: No rashes CENTRAL NERVOUS SYSTEM: No focal deficits, tone is normal in all 4 extremities. EXTREMITIES: There is no peripheral edema. No clubbing, no cyanosis. Peripheral pulses are intact. - Labs CBC & Chem 7: 08/22/21 17:17 08/25/21 06:23 Assessment and Plan Plan: 1 acute exacerbation of COPD with secondary shortness of breath. The patient wa s treated with antibiotics on outpatient basis without any improvement. The patient end up coming into the hospital for further evaluation and treatment. Chest x-ray is free of any acute pulmonary infiltrate pH has completed a course of Levaquin and later on doxycycline on an outpatient basis 2 severe COPD with an FEV1 ranging between 36 and 41% of predicted 3 chronic hypoxic respiratory failure maintained on O2 at nighttime only at 2 L 4 chronic atrial fibrillation maintained on anticoagulation with Eliquis 5 mg by mouth twice a day and Cardizem 5 hypertension Plan Continue DuoNeb nebulized treatments around the clock Continue IV Solu-Medrol systemic grams every 6 hours Stop the Symbicort and put the patient a combination of Perforomist and Pulmicort neb last 2 minutes twice a day Xanax 0.5 mg every 8 hours for anxiety Oxygen therapy to maintenance saturation above 90% COVID 19 testing is been negative Influenza screen has been negative We'll continue to follow
--- NOTE | 2021-08-26 14:16 | P.PN ---
Subjective Progress Note Date: 08/26/21 Principal diagnosis: sob Patient states that she has not made any significant progress compared to yesterday. She still feels tight in the chest and very short of breath. Still was coughing and congestion. Objective - Vital Signs Vital signs: Vital Signs Temp 97.7 F 08/26/21 13:53 Pulse 86 08/26/21 13:53 Resp 17 08/26/21 13:53 BP 146/76 08/26/21 13:53 Pulse Ox 95 08/26/21 13:53 Intake & Output 08/25/21 08/26/21 08/26/21 18:59 06:59 18:59 Intake Total 660 250 360 Balance 660 250 360 Intake: Oral 660 250 360 Other: Voiding Method Toilet Toilet # Voids 5 # Bowel Movements 1 - Exam General: non toxic, no distress, appears at stated age, normal weight Derm: no unusual rashes/lesions no unusual ecchymoses, warm, dry Head: atraumatic, normocephalic, symmetric Eyes: EOMI, no lid lag, anicteric sclera, pupils equal round reactive to light ENT: Nose and ears atraumatic, no thrush, no pharyngeal erythema Neck: No thyromegaly, no cervical lymphadenopathy, trachea midline, supple Mouth: no lip lesion, mucus membranes moist Cardiovascular: S1S2 reg, no murmur, positive posterior tibial pulse bilateral, no edema, capillary refill less than 2 seconds Lungs: Bilateral diffuse wheezing auscultated Abdominal: soft, nontender to palpation, no guarding, no appreciable organomegaly, normal bowel sounds Ext: no gross muscle atrophy, muscle strength 5 out of 5 in all 4 extremities grossly, no contractures, Neuro: CN II-XI grossly intact, light touch intact all 4 extremities, finger to nose within normal limits, Psych: Alert, oriented, appropriate affect - Labs CBC & Chem 7: 08/22/21 17:17 08/25/21 06:23 Assessment and Plan Plan: Acute COPD exacerbation with acute on chronic hypoxic respiratory failure -Currently on 3 L nasal cannula which has improved from 5 L nasal cannula--try to wean down, she is not on O2 at baseline, only wears 2L at night. -Solu-Medrol 60 mg every 6 hourly -DuoNeb's 4 times a day -Budesonide -mucinex -Pulmonary team following -No evidence of pneumonia seen on imaging Chronic conditions: A. fib, GERD -Continue with eliquis, aspirin, diltiazem -Had Protonix daily DVT prophylaxis -Eliquis CODE STATUS: Full Code Discussed with: Patient Anticipated discharge date: in am Anticipated discharge place: Home
[2021-08-26] MEDS: BUDESONIDE 0.5 MG/2 ML NEBU INHALATION SCH (19:12)
[2021-08-26] MEDS: FORMOTEROL FUMARATE 20 MCG/2 ML NEBU INHALATION SCH (19:12)
[2021-08-26] MEDS: ASPIRIN 81 MG PO SCH (19:58)
[2021-08-27] MEDS: methylPREDNISolone SOD SUCCI 125 MG/2 ML VIAL IV SCH ×4 (00:09→17:33)
[2021-08-27] MEDS: FORMOTEROL FUMARATE 20 MCG/2 ML NEBU INHALATION SCH ×2 (07:14→18:55)
[2021-08-27] MEDS: BUDESONIDE 0.5 MG/2 ML NEBU INHALATION SCH ×2 (07:14→18:55)
[2021-08-27] MEDS: IPRATROPIUM-ALBUTEROL 3 ML NEB INHALATION SCH ×4 (07:15→18:55)
[2021-08-27] MEDS: APIXABAN 5 MG TAB PO SCH ×2 (08:13→21:12)
[2021-08-27] MEDS: PANTOPRAZOLE 40 MG TABLET PO SCH (08:13)
[2021-08-27] MEDS: guaiFENesin 600 MG TABLET.ER PO SCH (08:13)
[2021-08-27] MEDS: MONTELUKAST 10 MG TAB PO SCH (08:13)
[2021-08-27] MEDS: DILTIAZEM CD 120 MG CAP.ER.24H PO SCH (08:13)
[2021-08-27] MEDS ORDERED: RX INFO: IV CONTRAST WAS GIVEN 1 EACH MISC MISCELLANE PRN (10:26)
--- NOTE | 2021-08-27 11:15 | XR ---
EXAMINATION TYPE: XR chest 2V DATE OF EXAM: 08/27/2021 COMPARISON: 08/22/2021 INDICATION: Short of breath TECHNIQUE: Frontal and lateral views of the chest are obtained. FINDINGS: The heart size is normal. The pulmonary vasculature is normal. There is hyperinflation flattening the diaphragms compatible with COPD. Minimal posterior pleural eff usions may be present. IMPRESSION: 1. COPD. 2. Innumerable bilateral pleural effusions may be present posteriorly.
[2021-08-27] MEDS: ALPRAZolam 0.5 MG TAB PO PRN (11:35)
[2021-08-27] MEDS: LEVOFLOXACIN 750 MG TAB PO SCH (11:35)
--- NOTE | 2021-08-27 12:11 | P.PN ---
Subjective Progress Note Date: 08/27/21 This is a 81-year-old female patient was Hospital as for an acute COPD exacerbation. The patient's been having increased shortness of breath for the past 5-6 days. The patient started off with symptoms of URI and subsequently she started having increased cough and congestion shortness of breath and whee ze. She contacted her primary care physician. The patient was initially given a course of Levaquin and subsequently she was given a course of doxycycline. Nevertheless, her condition did not improve and the patient up coming into the hospital for further evaluation. The patient was Hospital as for an acute COPD exacerbation. The patient is known to have severe COPD with a post-ABLATION FEV1 of 41% of predicted based on a PFT that was done back in 07/04/2019. The patient also has a diffusion capacity of 36% of predicted. Over the past 2 months, the patient has been maintained on 10 mg of prednisone as maintenance pH was in [place] and her symptoms started getting worse after she arrived back to [place]. She has home O2 and she uses it mainly at nighttime at 2 L. She is an ex-smoker and she carries many years of smoking history. No angina. No palpitation. No increased swelling in lower extremities. No altered mentation P chest x-ray is consistent with COPD. No acute airspace 0 pulmonary infiltrates noted. She is able to speak of. This is a for now. The patient is seen today 08/24/2021 in follow-up on the regular medical floor. She is currently sitting up in a chair at the bedside. Awake and alert in no acute distress. She is maintaining O2 saturations in the 90s on 3 L/m per nasal cannula. She is breathing a bit easier today compared to yesterday. A bit less anxious. Pro-calcitonin 0.04. She is continued on DuoNeb inhalations, Symbicort, IV Solu-Medrol, Singulair. Anticoagulated with Eliquis. The patient is seen today 08/25/2021 in follow-up on the regular medical floor. She is awake and alert in no acute distress. Continues to improve daily. Still not quite back to her baseline. Maintaining O2 saturations in the mid 90s on 3 L/m per nasal cannula. She's afebrile. Hemodynamically stable. Sodium 133. Potassium 4.6. BUN 21. Creatinine 0.6. Glucose 20. Procalcitonin 0.04. She is continued on Symbicort, Singulair, DuoNeb inhalations, IV Solu-Medrol. Anticoagulated with Eliquis 08/26/2021, the patient is slightly more short of breath compared to yesterday. She does demonstrate improvement initially and today she seems to have had a setback. She has still on oxygen and she is also on bronchodilators and steroids with IV ceruminosis milligrams every 6 hours. She has chronic anxiety. No new labs for today. She is afebrile. She's hemoglobin is stable. Pro- calcitonin level has been low. 08/27/2021, the patient feels that improvement is limited and the patient is still short of breath, congested, unable to give much sputum, bronchospastic and wheezy. I stop the Symbicort yesterday and put the patient on a combination of Perforomist and Pulmicort. Furthermore, CAT scan of the chest was ordered for today and showed some minimal right middle lobe atelectasis. Otherwise no other acute abnormalities in terms of pneumonias. There was extensive emphysematous changes made upper lobe predominance. Pro-calcitonin level was low. Objective - Vital Signs Vital signs: Vital Signs Temp 98.2 F 08/27/21 07:29 Pulse 90 08/27/21 11:16 Resp 15 08/27/21 07:29 BP 175/86 08/27/21 07:29 Pulse Ox 93 L 08/27/21 07:29 Intake & Output 08/26/21 08/27/21 08/27/21 18:59 06:59 18:59 Intake Total 360 Balance 360 Intake: Oral 360 Other: Voiding Method Toilet # Voids 4 1 # Bowel Movements 1 - Exam GENERAL EXAM: Alert, frail, 81-year-old female patient 3 L nasal cannula, comfortable in no apparent distress. HEAD: Normocephalic. EYES: Normal reaction of pupils, equal size. NOSE: Clear with pink turbinates. THROAT: No erythema or exudates. NECK: No masses, no JVD. CHEST: No chest wall deformity. LUNGS: Equal air entry with bilateral end expiratory wheeze,diminished. CVS: S1 and S2 normal with no audible murmur, regular rhythm. ABDOMEN: No hepatosplenomegaly, normal bowel sounds, no guarding or rigidity. SPINE: No scoliosis or deformity SKIN: No rashes CENTRAL NERVOUS SYSTEM: No focal deficits, tone is normal in all 4 extremities. EXTREMITIES: There is no peripheral edema. No clubbing, no cyanosis. Peripheral pulses are intact. - Labs CBC & Chem 7: 08/22/21 17:17 08/25/21 06:23 Assessment and Plan Plan: 1 acute exacerbation of COPD with secondary shortness of breath. The patient was treated with antibiotics on outpatient basis without any improvement. The patient end up coming into the hospital for further evaluation and treatment. Chest x-ray is free of any acute pulmonary infiltrate has completed a course of Levaquin and later on doxycycline on an outpatient basis 2 severe COPD with an FEV1 ranging between 36 and 41% of predicted 3 chronic hypoxic respiratory failure maintained on O2 at nighttime only at 2 L 4 chronic atrial fibrillation maintained on anticoagulation with Eliquis 5 mg by mouth twice a day and Cardizem 5 hypertension Plan CAT scan of the chest was done today and showed emphysema with upper lobe predominance. Minimal right midlung atelectasis. No other acute abnormalities noted. Continue DuoNeb nebulized treatments around the clock Continue IV Solu-Medrol systemic grams every 6 hours Continue combination of Perforomist and Pulmicort neb last 2 minutes twice a day Restart Levaquin 750 mg once a day, and this is considered this to be an empiric antibiotic coverage Xanax 0.5 mg every 8 hours for anxiety May consider bronchoscopy/lavage next 24-48 hours if no improvement.
--- NOTE | 2021-08-27 13:32 | P.PN ---
Subjective Progress Note Date: 08/27/21 Principal diagnosis: sob Still feeling sob with minimal improvement, she feels she can't cough things up. Still with tightness. She is anxious why she is not getting better quickly. No fevers. Objective - Vital Signs Vital signs: Vital Signs Temp 98.2 F 08/27/21 07:29 Pulse 90 08/27/21 11:16 Resp 15 08/27/21 07:29 BP 175/86 08/27/21 07:29 Pulse Ox 93 L 08/27/21 07:29 Intake & Output 08/26/21 08/27/21 08/27/21 18:59 06:59 18:59 Intake Total 360 Balance 360 Intake: Oral 360 Other: Voiding Method Toilet # Voids 4 1 # Bowel Movements 1 - Exam General: non toxic, no distress, appears at stated age, normal weight Derm: no unusual rashes/lesions no unusual ecchymoses, warm, dry Head: atraumatic, normocephalic, symmetric Eyes: EOMI, no lid lag, anicteric sclera, pupils equal round reactive to light ENT: Nose and ears atraumatic, no thrush, no pharyngeal erythema Neck: No thyromegaly, no cervical lymphadenopathy, trachea midline, supple Mouth: no lip lesion, mucus membranes moist Cardiovascular: S1S2 reg, no murmur, positive posterior tibial pulse bilateral, no edema, capillary refill less than 2 seconds Lungs: Bilateral diffuse wheezing auscultated Abdominal: soft, nontender to palpation, no guarding, no appreciable organomegaly, normal bowel sounds Ext: no gross muscle atrophy, muscle strength 5 out of 5 in all 4 extremities grossly, no contractures, Neuro: CN II-XI grossly intact, light touch intact all 4 extremities, finger to nose within normal limits, Psych: Alert, oriented, appropriate affect - Labs CBC & Chem 7: 08/22/21 17:17 08/25/21 06:23 Assessment and Plan Plan: Acute COPD exacerbation with acute on chronic hypoxic respiratory failure -Currently on 3 L nasal cannula which has improved from 5 L nasal cannula--try to wean down, she is not on O2 at baseline, only wears 2L at night. -Solu-Medrol 60 mg every 6 hourly -DuoNeb's 4 times a day -Budesonide -mucinex -Seen by pulmonary today who ordered chest CT which showed minimal atelectasis of the right middle lobe. Restarted on levaquin 08/27. Of note she completed a course of Levaquin and later on doxycycline on an outpatient basis -Procal 0.04 Chronic conditions: A. fib, GERD -Continue with eliquis, aspirin, diltiazem -Had Protonix daily DVT prophylaxis -Eliquis CODE STATUS: Full Code Discussed with: Patient Anticipated discharge date: 2-[address]: Home
--- NOTE | 2021-08-27 16:13 | CT ---
EXAMINATION TYPE: CT chest w con DATE OF EXAM: 08/27/2021 COMPARISON: None HISTORY: SOB CT DLP: 201.3 mGycm Automated exposure control for dose reduction was used. TECHNIQUE: CT scan of the chest is performed with IV Contrast, patient injected with 100 mL of Isovue 300. MIP Images are created on CT scanner and reviewed. 3D reconstructed images are created on an independent workstation and reviewed. FINDINGS: There are marked emphysematous changes. There is no airspace consolidation/density. There is no inter stitial density or honeycombing. There is no pleural effusion, pleural thickening or pneumothorax. The heart, pulmonary vasculature, mediastinum appear normal. The osseous structures are intact. Limited scanning through the upper abdomen reveals no gross abnormality. IMPRESSION: 1. Marked emphysematous changes. 2. No acute cardiopulmonary disease.
[2021-08-27] MEDS: ASPIRIN 81 MG PO SCH (21:12)
[2021-08-28] MEDS: methylPREDNISolone SOD SUCCI 125 MG/2 ML VIAL IV SCH ×5 (00:26→23:15)
[2021-08-28] MEDS: ALPRAZolam 0.5 MG TAB PO PRN ×2 (03:10→22:04)
[2021-08-28] MEDS: FORMOTEROL FUMARATE 20 MCG/2 ML NEBU INHALATION SCH ×2 (07:46→20:22)
[2021-08-28] MEDS: BUDESONIDE 0.5 MG/2 ML NEBU INHALATION SCH ×2 (07:46→20:22)
[2021-08-28] MEDS: IPRATROPIUM-ALBUTEROL 3 ML NEB INHALATION SCH ×4 (07:46→20:22)
[2021-08-28] MEDS: DILTIAZEM CD 120 MG CAP.ER.24H PO SCH (09:21)
[2021-08-28] MEDS: PANTOPRAZOLE 40 MG TABLET PO SCH (09:21)
[2021-08-28] MEDS: guaiFENesin 600 MG TABLET.ER PO SCH (09:21)
[2021-08-28] MEDS: APIXABAN 5 MG TAB PO SCH ×3 (09:22→22:01)
[2021-08-28] MEDS: MONTELUKAST 10 MG TAB PO SCH (09:22)
[2021-08-28] MEDS: LEVOFLOXACIN 750 MG TAB PO SCH (09:23)
--- NOTE | 2021-08-28 11:49 | P.PN ---
Subjective Progress Note Date: 08/28/21 Principal diagnosis: sob Patient is starting to feel better today, chest feels it is opening up but still feel that she is not at baseline. Still with sob. No fevers no pain. Objective - Vital Signs Vital signs: Vital Signs Temp 97.6 F 08/28/21 07:26 Pulse 94 08/28/21 11:34 Resp 18 08/28/21 07:26 BP 113/71 08/28/21 07:26 Pulse Ox 96 08/28/21 07:49 Intake & Output 08/27/21 08/28/21 08/28/21 18:59 06:59 18:59 Intake Total 480 240 Balance 480 240 Intake: Oral 480 240 Other: Voiding Method Toilet # Voids 3 1 # Bowel Movements 1 - Exam General: non toxic, no distress, appears at stated age, normal weight Derm: no unusual rashes/lesions no unusual ecchymoses, warm, dry Head: atraumatic, normocephalic, symmetric Eyes: EOMI, no lid lag, anicteric sclera, pupils equal round reactive to light ENT: Nose and ears atraumatic, no thrush, no pharyngeal erythema Neck: No thyromegaly, no cervical lymphadenopathy, trachea midline, supple Mouth: no lip lesion, mucus membranes moist Cardiovascular: S1S2 reg, no murmur, positive posterior tibial pulse bilateral, no edema, capillary refill less than 2 seconds Lungs: Bilateral diffuse wheezing auscultated Abdominal: soft, nontender to palpation, no guarding, no appreciable organomegaly, normal bowel sounds Ext: no gross muscle atrophy, muscle strength 5 out of 5 in all 4 extremities grossly, no contractures, Neuro: CN II-XI grossly intact, light touch intact all 4 extremities, finger to nose within normal limits, Psych: Alert, oriented, appropriate affect - Labs CBC & Chem 7: 08/22/21 17:17 08/25/21 06:23 Assessment and Plan Plan: Acute COPD exacerbation with acute on chronic hypoxic respiratory failure -Currently on 3 L nasal cannula which has improved from 5 L nasal cannula--try to wean down, she is not on O2 at baseline, only wears 2L at night. -Solu-Medrol 60 mg every 6 hourly -DuoNeb's 4 times a day -Budesonide -mucinex -Seen by pulmonary -CT chest 08/27 ok. -Restarted on levaquin 08/27. Of note she completed a course of Levaquin and later on doxycycline on an outpatient basis -Procal 0.04 Chronic conditions: A. fib, GERD -Continue with eliquis, aspirin, diltiazem -Had Protonix daily Weakness -PT DVT prophylaxis -Eliquis CODE STATUS: Full Code Discussed with: Patient Anticipated discharge date: 2-[address]: Home
--- NOTE | 2021-08-28 12:28 | P.PN ---
Subjective Progress Note Date: 08/28/21 This is a 81-year-old female patient was Hospital as for an acute COPD exacerbation. The patient's been having increased shortness of breath for the past 5-6 days. The patient started off with symptoms of URI and subsequently she started having increased cough and congestion shortness of breath and whee ze. She contacted her primary care physician. The patient was initially given a course of Levaquin and subsequently she was given a course of doxycycline. Nevertheless, her condition did not improve and the patient up coming into the hospital for further evaluation. The patient was Hospital as for an acute COPD exacerbation. The patient is known to have severe COPD with a post-ABLATION FEV1 of 41% of predicted based on a PFT that was done back in 07/04/2019. The patient also has a diffusion capacity of 36% of predicted. Over the past 2 months, the patient has been maintained on 10 mg of prednisone as maintenance pH was in [place] and her symptoms started getting worse after she arrived back to [place]. She has home O2 and she uses it mainly at nighttime at 2 L. She is an ex-smoker and she carries many years of smoking history. No angina. No palpitation. No increased swelling in lower extremities. No altered mentation P chest x-ray is consistent with COPD. No acute airspace 0 pulmonary infiltrates noted. She is able to speak of. This is a for now. The patient is seen today 08/24/2021 in follow-up on the regular medical floor. She is currently sitting up in a chair at the bedside. Awake and alert in no acute distress. She is maintaining O2 saturations in the 90s on 3 L/m per nasal cannula. She is breathing a bit easier today compared to yesterday. A bit less anxious. Pro-calcitonin 0.04. She is continued on DuoNeb inhalations, Symbicort, IV Solu-Medrol, Singulair. Anticoagulated with Eliquis. The patient is seen today 08/25/2021 in follow-up on the regular medical floor. She is awake and alert in no acute distress. Continues to improve daily. Still not quite back to her baseline. Maintaining O2 saturations in the mid 90s on 3 L/m per nasal cannula. She's afebrile. Hemodynamically stable. Sodium 133. Potassium 4.6. BUN 21. Creatinine 0.6. Glucose 20. Procalcitonin 0.04. She is continued on Symbicort, Singulair, DuoNeb inhalations, IV Solu-Medrol. Anticoagulated with Eliquis 08/26/2021, the patient is slightly more short of breath compared to yesterday. She does demonstrate improvement initially and today she seems to have had a setback. She has still on oxygen and she is also on bronchodilators and steroids with IV ceruminosis milligrams every 6 hours. She has chronic anxiety. No new labs for today. She is afebrile. She's hemoglobin is stable. Pro- calcitonin level has been low. 08/27/2021, the patient feels that improvement is limited and the patient is still short of breath, congested, unable to give much sputum, bronchospastic and wheezy. I stop the Symbicort yesterday and put the patient on a combination of Perforomist and Pulmicort. Furthermore, CAT scan of the chest was ordered for today and showed some minimal right middle lobe atelectasis. Otherwise no other acute abnormalities in terms of pneumonias. There was extensive emphysematous changes made upper lobe predominance. Pro-calcitonin level was low. 08/28/2021, the patient is feeling better. Less short of breath. CAT scan of the chest was done yesterday and showed no acute abnormalities other than background COPD. No nausea. No vomiting. No chest pain could anxiety at the level of improvement of the patient is receiving Xanax. The patient on 3 L of O2 nasal cannula. Objective - Vital Signs Vital signs: Vital Signs Temp 97.6 F 08/28/21 07:26 Pulse 94 08/28/21 11:34 Resp 18 08/28/21 07:26 BP 113/71 08/28/21 07:26 Pulse Ox 96 08/28/21 07:49 Intake & Output 08/27/21 08/28/21 08/28/21 18:59 06:59 18:59 Intake Total 480 240 Balance 480 240 Intake: Oral 480 240 Other: Voiding Method Toilet # Voids 3 1 # Bowel Movements 1 - Exam GENERAL EXAM: Alert, frail, 81-year-old female patient 3 L nasal cannula, comfortable in no apparent distress. HEAD: Normocephalic. EYES: Normal reaction of pupils, equal size. NOSE: Clear with pink turbinates. THROAT: No erythema or exudates. NECK: No masses, no JVD. CHEST: No chest wall deformity. LUNGS: Equal air entry with bilateral end expiratory wheeze,diminished. CVS: S1 and S2 normal with no audible murmur, regular rhythm. ABDOMEN: No hepatosplenomegaly, normal bowel sounds, no guarding or rigidity. SPINE: No scoliosis or deformity SKIN: No rashes CENTRAL NERVOUS SYSTEM: No focal deficits, tone is normal in all 4 extremities. EXTREMITIES: There is no peripheral edema. No clubbing, no cyanosis. Peripheral pulses are intact. - Labs CBC & Chem 7: 08/22/21 17:17 08/25/21 06:23 Assessment and Plan Plan: 1 acute exacerbation of COPD with secondary shortness of breath. The patient was treated with antibiotics on outpatient basis without any improvement. The patient end up coming into the hospital for further evaluation and treatment. Chest x-ray is free of any acute pulmonary infiltrate has completed a course of Levaquin and later on doxycycline on an outpatient basis 2 severe COPD with an FEV1 ranging between 36 and 41% of predicted 3 chronic hypoxic respiratory failure maintained on O2 at nighttime only at 2 L 4 chronic atrial fibrillation maintained on anticoagulation with Eliquis 5 mg by mouth twice a day and Cardizem 5 hypertension Plan CAT scan of the chest was noted, no acute abnormalities and COPD Continue same treatment Wean down the FiO2 as the patient is currently on 3 L Continue DuoNeb nebulized treatments around the clock Continue IV Solu-Medrol systemic grams every 6 hours Continue combination of Perforomist and Pulmicort neb last 2 minutes twice a day Levaquin 750 mg once a day, and this is considered this to be an empiric antibiotic coverage Xanax 0.5 mg every 8 hours for anxiety May consider bronchoscopy/lavage next 24-48 hours if no improvement. Clinically improved on today's evaluation
[2021-08-28] MEDS: ASPIRIN 81 MG PO SCH (22:01)
[2021-08-29] MEDS: methylPREDNISolone SOD SUCCI 125 MG/2 ML VIAL IV SCH ×4 (05:42→23:15)
[2021-08-29] MEDS: IPRATROPIUM-ALBUTEROL 3 ML NEB INHALATION SCH ×4 (06:05→20:17)
[2021-08-29] MEDS: BUDESONIDE 0.5 MG/2 ML NEBU INHALATION SCH ×2 (06:05→20:17)
[2021-08-29] MEDS: FORMOTEROL FUMARATE 20 MCG/2 ML NEBU INHALATION SCH ×2 (06:09→20:17)
[2021-08-29] MEDS: PANTOPRAZOLE 40 MG TABLET PO SCH (08:02)
[2021-08-29] MEDS ORDERED: CALCIUM CARBONATE 500 MG CHEWABLE PO ONE (08:30)
[2021-08-29] MEDS: LEVOFLOXACIN 750 MG TAB PO SCH (08:31)
[2021-08-29] MEDS: APIXABAN 5 MG TAB PO SCH ×2 (08:31→21:33)
[2021-08-29] MEDS: DILTIAZEM CD 120 MG CAP.ER.24H PO SCH (08:31)
[2021-08-29] MEDS: guaiFENesin 600 MG TABLET.ER PO SCH (08:31)
[2021-08-29] MEDS: MONTELUKAST 10 MG TAB PO SCH (08:32)
[2021-08-29] MEDS ORDERED: DOXYCYCLINE 100 MG CAP PO SCH (10:30)
--- NOTE | 2021-08-29 11:57 | P.PN ---
Subjective Progress Note Date: 08/29/21 Principal diagnosis: Shortness of breath This is a 81-year-old female patient was Hospital as for an acute COPD exacerbation. The patient's been having increased shortness of breath for the past 5-6 days. The patient started off with symptoms of URI and subsequently she started having increased cough and congestion shortness of breath and wheeze. She contacted her primary care physician. The patient was initially given a course of Levaquin and subsequently she was given a course of doxycycline. Nevertheless, her condition did not improve and the patient up coming into the hospital for further evaluation. The patient was Hospital as for an acute COPD exacerbation. The patient is known to have severe COPD with a post-ABLATION FEV1 of 41% of predicted based on a PFT that was done back in 07/04/2019. The patient also has a diffusion capacity of 36% of predicted. Over the past 2 months, the patient has been maintained on 10 mg of prednisone as maintenance pH was in [place] and her symptoms started getting worse after she arrived back to [place]. She has home O2 and she uses it mainly at nighttime at 2 L. She is an ex-smoker and she carries many years of smoking history. No angina. No palpitation. No increased swelling in lower extremities. No altered mentation P chest x-ray is consistent with COPD. No acute airspace 0 pulmonary infiltrates noted. She is able to speak of. This is a for now. The patient is seen today 08/24/2021 in follow-up on the regular medical floor. She is currently sitting up in a chair at the bedside. Awake and alert in no acute distress. She is maintaining O2 saturations in the 90s on 3 L/m per nasal cannula. She is breathing a bit easier today compared to yesterday. A bit less anxious. Pro-calcitonin 0.04. She is continued on DuoNeb inhalations, Symbicort, IV Solu-Medrol, Singulair. Anticoagulated with Eliquis. The patient is seen today 08/25/2021 in follow-up on the regular medical floor. She is awake and alert in no acute distress. Continues to improve daily. Still not quite back to her baseline. Maintaining O2 saturations in the mid 90s on 3 L/m per nasal cannula. She's afebrile. Hemodynamically stable. Sodium 133. Potassium 4.6. BUN 21. Creatinine 0.6. Glucose 20. Procalcitonin 0.04. She is continued on Symbicort, Singulair, DuoNeb inhalations, IV Solu-Medrol. Anticoagulated with Eliquis 08/26/2021, the patient is slightly more short of breath compared to yesterday. She does demonstrate improvement initially and today she seems to have had a setback. She has still on oxygen and she is also on bronchodilators and steroids with IV ceruminosis milligrams every 6 hours. She has chronic anxiety. No new labs for today. She is afebrile. She's hemoglobin is stable. Pro- calcitonin level has been low. 08/27/2021, the patient feels that improvement is limited and the patient is still short of breath, congested, unable to give much sputum, bronchospastic and wheezy. I stop the Symbicort yesterday and put the patient on a combination of Perforomist and Pulmicort. Furthermore, CAT scan of the chest was ordered for today and showed some minimal right middle lobe atelectasis. Otherwise no other acute abnormalities in terms of pneumonias. There was extensive emphysematous changes made upper lobe predominance. Pro-calcitonin level was low. 08/28/2021, the patient is feeling better. Less short of breath. CAT scan of the chest was done yesterday and showed no acute abnormalities other than background COPD. No nausea. No vomiting. No chest pain could anxiety at the level of improvement of the patient is receiving Xanax. The patient on 3 L of O2 nasal cannula. On 08/29/2021 patient seen in follow-up on medical surgical floor. She is still quite bronchospastic, and wheezy. Vital signs have been stable overnight, she is on 3 L of oxygen pulse ox is 94%. She's had no acute events, she continues on IV steroids at 60 mg every 6 hours, remains on Pulmicort and Perforomist and DuoNeb nebulized treatments. Today's labs have been reviewed, her serum sodium is improved from admission and is up to 133, potassium is 4.6, BUN is 21, creatinine 0.6. Pro-calcitonin level was negative, proBNP level was 47, within normal limits urinalysis was negative, patient tested negative for COVID-19 influenza A and B. Objective - Vital Signs Vital signs: Vital Signs Temp 97.6 F 08/29/21 06:46 Pulse 96 08/29/21 11:47 Resp 18 08/29/21 06:46 BP 144/80 08/29/21 06:46 Pulse Ox 94 L 08/29/21 06:46 Intake & Output 08/28/21 08/29/21 08/29/21 18:59 06:59 18:59 Intake Total 600 120 Balance 600 120 Intake: Oral 600 120 Other: # Voids 4 1 - Exam GENERAL EXAM: Alert, very pleasant, 81-year-old white female, 3 L of oxygen with pulse ox of 94% comfortable in no apparent distress. HEAD: Normocephalic/atraumatic. EYES: Normal reaction of pupils, equal size. Conjunctiva pink, sclera white. NOSE: Clear with pink turbinates. THROAT: No erythema or exudates. NECK: No masses, no JVD, no thyroid enlargement, no adenopathy. CHEST: No chest wall deformity. Symmetrical expansion. LUNGS: Equal air entry with diffuse wheezes CVS: Regular rate and rhythm, normal S1 and S2, no gallops, no murmurs, no rubs ABDOMEN: Soft, nontender. No hepatosplenomegaly, normal bowel sounds, no guarding or rigidity. EXTREMITIES: No clubbing, no edema, no cyanosis, 2+ pulses and upper and lower extremities. MUSCULOSKELETAL: Muscle strength and tone normal. SPINE: No scoliosis or deformity SKIN: No rashes CENTRAL NERVOUS SYSTEM: Alert and oriented -3. No focal deficits, tone is normal in all 4 extremities. PSYCHIATRIC: Alert and oriented -3. Appropriate affect. Intact judgment and insight. - Labs CBC & Chem 7: 08/22/21 17:17 08/25/21 06:23 Labs: Microbiology - Last 24 Hours (Table) 08/28/21 07:50 Gram Stain - Final Sputum Sputum Culture - Final Assessment and Plan Plan: 1 acute exacerbation of COPD with secondary shortness of breath. The patient was treated with antibiotics on outpatient basis without any improvement. The patient end up coming into the hospital for further evaluation and treatment. Chest x-ray is free of any acute pulmonary infiltrate has completed a course of Levaquin and later on doxycycline on an outpatient basis 2 severe COPD with an FEV1 ranging between 36 and 41% of predicted 3 chronic hypoxic respiratory failure maintained on O2 at nighttime only at 2 L 4 chronic atrial fibrillation maintained on anticoagulation with Eliquis 5 mg by mouth twice a day and Cardizem 5 hypertension Plan: Continue current medical treatment Continue IV steroids, Continue nebulized bronchodilators Continue Levaquin and Mucinex Not quite ready for discharge Would benefit from continued inpatient treatment I have personally seen and examined the patient, performed the documentation and the assessment and plan as written. Number of minutes spent on the visit: [10] Time with Patient: Less than 30
--- NOTE | 2021-08-29 15:24 | P.PN ---
Subjective Patient was examined at bedside today continues to complain of shortness of breath. States that she's very uncomfortable today continues to be on 3 L nasal cannula. Case discussed with RN present at bedside. Objective - Vital Signs Vital signs: Vital Signs Temp 97.9 F 08/29/21 13:50 Pulse 98 08/29/21 13:50 Resp 16 08/29/21 13:50 BP 152/90 08/29/21 13:50 Pulse Ox 94 L 08/29/21 13:50 Intake & Output 08/28/21 08/29/21 08/29/21 18:59 06:59 18:59 Intake Total 600 238 Balance 600 238 Intake: Oral 600 238 Other: # Voids 4 1 2 - Exam General: non toxic, no distress, appears at stated age, normal weight Derm: no unusual rashes/lesions no unusual ecchymoses, warm, dry Head: atraumatic, normocephalic, symmetric Eyes: EOMI, no lid lag, anicteric sclera, pupils equal round reactive to light ENT: Nose and ears atraumatic, no thrush, no pharyngeal erythema Neck: No thyromegaly, no cervical lymphadenopathy, trachea midline, supple Mouth: no lip lesion, mucus membranes moist Cardiovascular: S1S2 reg, no murmur, positive posterior tibial pulse bilateral, no edema, capillary refill less than 2 seconds Lungs: Bilateral diffuse wheezing auscultated Abdominal: soft, nontender to palpation, no guarding, no appreciable organomegaly, normal bowel sounds Ext: no gross muscle atrophy, muscle strength 5 out of 5 in all 4 extremities grossly, no contractures, Neuro: CN II-XI grossly intact, light touch intact all 4 extremities, finger to nose within normal limits, Psych: Alert, oriented, appropriate affect - Labs CBC & Chem 7: 08/22/21 17:17 08/25/21 06:23 Labs: Microbiology - Last 24 Hours (Table) 08/28/21 07:50 Gram Stain - Final Sputum Sputum Culture - Final Assessment and Plan Assessment: Assessment: #1 acute approximately respiratory distress secondary to CPD exacerbation #2 atrial fibrillation rate controlled #3 essential hypertension #4 GERD #5 History tobacco dependence Plan: -Admit to medicine for close monitoring -Aspiration/fall precaution/HB 30 -Maintain saturations above 90% -Continue with IV methylprednisolone and duonebs + pulmicort. -Continue with IV Levaquin -Pulmonary on board -Xanax when necessary -Due to prophylaxis [place]
[2021-08-29 15:59] LABS: Basophils % (A) 0 %; Eosinophils % (A) 0 %; HCT 42.6 % (34.0-46.0); HGB 13.9 gm/dL (11.4-16.0); Lymphocytes # (A) 0.3 k/uL (1.0-4.8); Lymphocytes % (A) 2 %; MCH 30.5 pg (25.0-35.0); MCHC 32.6 g/dL (31.0-37.0); MCV 93.6 fL (80.0-100.0); Mean Platelet Volume 6.9; Monocytes # (A) 0.3 k/uL (0-1.0); Monocytes % (A) 3 %; Neutrophils # (A) 10.7 k/uL (1.3-7.7); Neutrophils % (A) 94 %; Platelet Count 339 k/uL (150-450); RBC 4.55 m/uL (3.80-5.40); RDW 12.5 % (11.5-15.5); WBC 11.3 k/uL (3.8-10.6)
[2021-08-29] MEDS: ASPIRIN 81 MG PO SCH (21:33)
[2021-08-29] MEDS: ALPRAZolam 0.5 MG TAB PO PRN (21:34)
[2021-08-29 23:17] LABS: African American GFR (CKD) 98.4 (60.0-200.0); Anion Gap 12.2 mmol/L (10.00-18.00); BUN/Creat Ratio 33.17 Ratio (12.00-20.00); Blood Urea Nitrogen 19.9 mg/dL (9.0-27.0); Calcium 8.8 mg/dL (8.7-10.3); Carbon Dioxide 28.8 mmol/L (20.0-27.5); Non-African American GFR(CKD) 84.9 (60.0-200.0); Potassium 3.4 mmol/L (3.5-5.5)
[2021-08-30] MEDS: IPRATROPIUM-ALBUTEROL 3 ML NEB INHALATION PRN (03:21)
[2021-08-30] MEDS: methylPREDNISolone SOD SUCCI 125 MG/2 ML VIAL IV SCH ×4 (05:15→23:18)
--- NOTE | 2021-08-30 07:49 | XR ---
EXAMINATION TYPE: XR chest 1V portable DATE OF EXAM: 08/30/2021 CLINICAL HISTORY: Difficulty breathing progress study. TECHNIQUE: Single AP portable upright view of the chest is obtained. COMPARISON: Chest x-ray and CTA chest from 3 days earlier FINDINGS: Background moderate to advanced underlying emphysematous change is redemonstrated. No susp icious focal airspace opacity, pleural effusion, or pneumothorax is seen bilaterally. Bilateral hilar prominence consistent with underlying pulmonary artery hypertension. Osseous structures are deminera lized. IMPRESSION: Chronic emphysematous change without acute pulmonary process.
[2021-08-30] MEDS: IPRATROPIUM-ALBUTEROL 3 ML NEB INHALATION SCH ×4 (08:17→19:57)
[2021-08-30] MEDS: FORMOTEROL FUMARATE 20 MCG/2 ML NEBU INHALATION SCH ×2 (08:17→19:57)
[2021-08-30] MEDS: BUDESONIDE 0.5 MG/2 ML NEBU INHALATION SCH ×2 (08:17→19:57)
[2021-08-30] MEDS: APIXABAN 5 MG TAB PO SCH ×2 (09:13→20:41)
[2021-08-30] MEDS: LEVOFLOXACIN 750 MG TAB PO SCH (09:13)
[2021-08-30] MEDS: PANTOPRAZOLE 40 MG TABLET PO SCH (09:13)
[2021-08-30] MEDS: DILTIAZEM CD 120 MG CAP.ER.24H PO SCH (09:13)
[2021-08-30] MEDS: MONTELUKAST 10 MG TAB PO SCH (09:13)
[2021-08-30 09:16] LABS: Basophils # (A) 0.02 X 10*3/uL (0.00-0.10); Basophils % (A) 0.2 %; Eosinophils # (A) 0 X 10*3/uL (0.04-0.35); Eosinophils % (A) 0 %; HCT 41.6 % (37.2-46.3); HGB 14.5 g/dL (12.0-15.0); Immature Grans, Automated 1.4 %; Lymphocytes # (A) 0.42 X 10*3/uL (0.90-5.00); Lymphocytes % (A) 4.1 %; MCH 31.5 pg (27.0-32.0); MCHC 34.9 g/dL (32.0-37.0); MCV 90.2 fL (80.0-97.0); Mean Platelet Volume 9.3 fL (9.5-12.2); Monocytes # (A) 0.52 X 10*3/uL (0.20-1.00); NRBC Per 100 WBC 0 /100 WBCS (0.0-0.0); Neutrophils # (A) 9.25 X 10*3/uL (1.80-7.70); Neutrophils % (A) 89.3 %; Platelet Count 328 X 10*3/uL (140-440); RBC 4.61 X 10*6/uL (4.10-5.20); RDW 12.6 % (11.5-14.5); WBC 10.36 X 10*3/uL (4.50-10.00)
[2021-08-30] MEDS: guaiFENesin 600 MG TABLET.ER PO SCH (09:17)
[2021-08-30 09:34] LABS: African American GFR (CKD) 98.4 (60.0-200.0); Anion Gap 11.7 mmol/L (10.00-18.00); Calcium 9.1 mg/dL (8.7-10.3); Carbon Dioxide 31.3 mmol/L (20.0-27.5); Non-African American GFR(CKD) 84.9 (60.0-200.0); Potassium 3.6 mmol/L (3.5-5.5)
--- NOTE | 2021-08-30 10:06 | P.PN ---
Subjective Progress Note Date: 08/30/21 This is a 81-year-old female patient was Hospital as for an acute COPD exacerbation. The patient's been having increased shortness of breath for the past 5-6 days. The patient started off with symptoms of URI and subsequently she started having increased cough and congestion shortness of breath and whee ze. She contacted her primary care physician. The patient was initially given a course of Levaquin and subsequently she was given a course of doxycycline. Nevertheless, her condition did not improve and the patient up coming into the hospital for further evaluation. The patient was Hospital as for an acute COPD exacerbation. The patient is known to have severe COPD with a post-ABLATION FEV1 of 41% of predicted based on a PFT that was done back in 07/04/2019. The patient also has a diffusion capacity of 36% of predicted. Over the past 2 months, the patient has been maintained on 10 mg of prednisone as maintenance pH was in [place] and her symptoms started getting worse after she arrived back to [place]. She has home O2 and she uses it mainly at nighttime at 2 L. She is an ex-smoker and she carries many years of smoking history. No angina. No palpitation. No increased swelling in lower extremities. No altered mentation P chest x-ray is consistent with COPD. No acute airspace 0 pulmonary infiltrates noted. She is able to speak of. This is a for now. The patient is seen today 08/24/2021 in follow-up on the regular medical floor. She is currently sitting up in a chair at the bedside. Awake and alert in no acute distress. She is maintaining O2 saturations in the 90s on 3 L/m per nasal cannula. She is breathing a bit easier today compared to yesterday. A bit less anxious. Pro-calcitonin 0.04. She is continued on DuoNeb inhalations, Symbicort, IV Solu-Medrol, Singulair. Anticoagulated with Eliquis. The patient is seen today 08/25/2021 in follow-up on the regular medical floor. She is awake and alert in no acute distress. Continues to improve daily. Still not quite back to her baseline. Maintaining O2 saturations in the mid 90s on 3 L/m per nasal cannula. She's afebrile. Hemodynamically stable. Sodium 133. Potassium 4.6. BUN 21. Creatinine 0.6. Glucose 20. Procalcitonin 0.04. She is continued on Symbicort, Singulair, DuoNeb inhalations, IV Solu-Medrol. Anticoagulated with Eliquis. The patient is seen today 08/30/2021 in follow-up on the regular medical floor. She is currently sitting up at the bedside. Awake and alert in no acute distress. She has been slow to progress. She is nearly back to her baseline. Continue O2 saturations in the low 90s on 3 L/m per nasal cannula. Follow-up chest x-ray reveals chronic emphysematous changes without acute pulmonary process. Sputum culture pending. Initial sputum culture revealed no growth. White count 10.3. Hemoglobin 14.5. Sodium 132. Potassium 3.6. BUN 15. Creatinine 0.6. Glucose 153. She is continued on DuoNeb inhalations, Pulmicort and Perforomist inhalations, Singulair, IV Solu-Medrol. Antibiotics in the form of Levaquin. Anticoagulated with Eliquis. Objective - Vital Signs Vital signs: Vital Signs Temp 97.4 F L 08/30/21 08:00 Pulse 93 08/30/21 08:39 Resp 20 08/30/21 09:22 BP 148/84 08/30/21 08:00 Pulse Ox 92 L 08/30/21 09:25 Intake & Output 08/29/21 08/30/21 08/30/21 18:59 06:59 18:59 Intake Total 238 120 Balance 238 120 Intake: Oral 238 120 Other: Voiding Method Toilet # Voids 2 1 - Exam GENERAL EXAM: Alert, frail, 81-year-old female patient 3 L nasal cannula, comfortable in no apparent distress. HEAD: Normocephalic. EYES: Normal reaction of pupils, equal size. NOSE: Clear with pink turbinates. THROAT: No erythema or exudates. NECK: No masses, no JVD. CHEST: No chest wall deformity. LUNGS: Equal air entry with bilateral end expiratory wheeze,diminished. CVS: S1 and S2 normal with no audible murmur, regular rhythm. ABDOMEN: No hepatosplenomegaly, normal bowel sounds, no guarding or rigidity. SPINE: No scoliosis or deformity SKIN: No rashes CENTRAL NERVOUS SYSTEM: No focal deficits, tone is normal in all 4 extremities. EXTREMITIES: There is no peripheral edema. No clubbing, no cyanosis. Peripheral pulses are intact. - Labs CBC & Chem 7: 08/30/21 06:59 08/30/21 06:59 Labs: Abnormal Lab Results - Last 24 Hours (Table) 08/29/21 08/29/21 08/30/21 Range/Units 15:40 15:40 06:59 WBC 11.3 H 10.36 H (3.8-10.6) k/uL MPV 9.3 L (9.5-12.2) fL Immature Gran # 0.15 H (0.00-0.04) X 10*3/uL Neutrophils # 10.7 H 9.25 H (1.3-7.7) k/uL Lymphocytes # 0.3 L 0.42 L (1.0-4.8) k/uL Eosinophils # 0 L (0.04-0.35) X 10*3/uL Sodium 128 L (135-145) mmol/L Potassium 3.4 L (3.5-5.5) mmol/L Chloride 87 L (96-109) mmol/L Carbon Dioxide 28.8 H (20.0-27.5) mmol/L BUN/Creatinine Ratio 33.17 H (12.00-20.00) Ratio Glucose 216 H (70-110) mg/dL 08/30/21 Range/Units 06:59 WBC (3.8-10.6) k/uL MPV (9.5-12.2) fL Immature Gran # (0.00-0.04) X 10*3/uL Neutrophils # (1.3-7.7) k/uL Lymphocytes # (1.0-4.8) k/uL Eosinophils # (0.04-0.35) X 10*3/uL Sodium 132 L (135-145) mmol/L Potassium (3.5-5.5) mmol/L Chloride 89 L (96-109) mmol/L Carbon Dioxide 31.3 H (20.0-27.5) mmol/L BUN/Creatinine Ratio 25.00 H (12.00-20.00) Ratio Glucose 153 H (70-110) mg/dL Microbiology - Last 24 Hours (Table) 08/29/21 20:22 Gram Stain - Preliminary Sputum Sputum Culture - Preliminary 08/28/21 07:50 Gram Stain - Final Sputum Sputum Culture - Final Assessment and Plan Assessment: Acute exacerbation of COPD with secondary shortness of breath. The patient was treated with antibiotics on outpatient basis without any improvement. The patient end up coming into the hospital for further evaluation and treatment. Follow-up chest x-ray is free of any acute pulmonary infiltrate. Severe COPD with an FEV1 ranging between 36 and 41% of predicted Chronic hypoxic respiratory failure maintained on O2 at nighttime only at 2 L Chronic atrial fibrillation maintained on anticoagulation with Eliquis 5 mg by mouth twice a day and Cardizem Hypertension Plan: The patient was seen and evaluated Chest x-ray, labs and medications reviewed Continue the current treatment plan Probable home in the a.m. We will continue to follow I have personally seen and examined the patient, performed the documentation and the assessment and plan as written. Number of minutes spent on the visit: 10.
--- NOTE | 2021-08-30 13:17 | P.PN ---
Subjective Patient was examined at bedside today not complaining of any worsening symptomatology. Continues to be complaining of some shortness of breath unch anged from yesterday currently on 3 L saturating above 90%. Still continues to wheeze on examination. Objective - Vital Signs Vital signs: Vital Signs Temp 97.4 F L 08/30/21 08:00 Pulse 100 08/30/21 11:53 Resp 20 08/30/21 09:22 BP 148/84 08/30/21 08:00 Pulse Ox 92 L 08/30/21 09:25 Intake & Output 08/29/21 08/30/21 08/30/21 18:59 06:59 18:59 Intake Total 238 120 Balance 238 120 Intake: Oral 238 120 Other: Voiding Method Toilet # Voids 2 1 - Exam General: non toxic, no distress, appears at stated age, normal weight Derm: no unusual rashes/lesions no unusual ecchymoses, warm, dry Head: atraumatic, normocephalic, symmetric Eyes: EOMI, no lid lag, anicteric sclera, pupils equal round reactive to light ENT: Nose and ears atraumatic, no thrush, no pharyngeal erythema Neck: No thyromegaly, no cervical lymphadenopathy, trachea midline, supple Mouth: no lip lesion, mucus membranes moist Cardiovascular: S1S2 reg, no murmur, positive posterior tibial pulse bilateral, no edema, capillary refill less than 2 seconds Lungs: Bilateral diffuse wheezing auscultated Abdominal: soft, nontender to palpation, no guarding, no appreciable or ganomegaly, normal bowel sounds Ext: no gross muscle atrophy, muscle strength 5 out of 5 in all 4 extremities grossly, no contractures, Neuro: CN II-XI grossly intact, light touch intact all 4 extremities, finger to nose within normal limits, Psych: Alert, oriented, appropriate affect - Labs CBC & Chem 7: 08/30/21 06:59 08/30/21 06:59 Labs: Abnormal Lab Results - Last 24 Hours (Table) 08/29/21 08/29/21 08/30/21 Range/Units 15:40 15:40 06:59 WBC 11.3 H 10.36 H (3.8-10.6) k/uL MPV 9.3 L (9.5-12.2) fL Immature Gran # 0.15 H (0.00-0.04) X 10*3/uL Neutrophils # 10.7 H 9.25 H (1.3-7.7) k/uL Lymphocytes # 0.3 L 0.42 L (1.0-4.8) k/uL Eosinophils # 0 L (0.04-0.35) X 10*3/uL Sodium 128 L (135-145) mmol/L Potassium 3.4 L (3.5-5.5) mmol/L Chloride 87 L (96-109) mmol/L Carbon Dioxide 28.8 H (20.0-27.5) mmol/L BUN/Creatinine Ratio 33.17 H (12.00-20.00) Ratio Glucose 216 H (70-110) mg/dL 08/30/21 Range/Units 06:59 WBC (3.8-10.6) k/uL MPV (9.5-12.2) fL Immature Gran # (0.00-0.04) X 10*3/uL Neutrophils # (1.3-7.7) k/uL Lymphocytes # (1.0-4.8) k/uL Eosinophils # (0.04-0.35) X 10*3/uL Sodium 132 L (135-145) mmol/L Potassium (3.5-5.5) mmol/L Chloride 89 L (96-109) mmol/L Carbon Dioxide 31.3 H (20.0-27.5) mmol/L BUN/Creatinine Ratio 25.00 H (12.00-20.00) Ratio Glucose 153 H (70-110) mg/dL Microbiology - Last 24 Hours (Table) 08/29/21 20:22 Gram Stain - Preliminary Sputum Sputum Culture - Preliminary 08/28/21 07:50 Gram Stain - Final Sputum Sputum Culture - Final Assessment and Plan Assessment: Assessment: #1 acute approximately respiratory distress secondary to COPD exacerbation #2 atrial fibrillation rate controlled #3 essential hypertension #4 GERD #5 History tobacco dependence Plan: -Admit to medicine for close monitoring -Aspiration/fall precaution/HB 30 -Maintain saturations above 90% -Continue with IV methylprednisolone and duonebs + pulmicort. -Continue with IV Levaquin -Pulmonary on board -Xanax when necessary -Due to prophylaxis Eliquis -Anticipate discharge in the next 24-48 hours pending clinical course.
[2021-08-30 13:48] VITALS: BMI 22.8
[2021-08-30] MEDS: ASPIRIN 81 MG PO SCH (20:40)
[2021-08-30] MEDS ORDERED: polyethylene glycoL 3350 17 GM POWD.PACK PO STA (21:18)
[2021-08-30] MEDS: ALPRAZolam 0.5 MG TAB PO PRN (23:18)
[2021-08-31] MEDS: IPRATROPIUM-ALBUTEROL 3 ML NEB INHALATION PRN (04:58)
[2021-08-31] MEDS: methylPREDNISolone SOD SUCCI 125 MG/2 ML VIAL IV SCH ×4 (05:18→23:55)
[2021-08-31] MEDS: FORMOTEROL FUMARATE 20 MCG/2 ML NEBU INHALATION SCH ×2 (07:13→19:46)
[2021-08-31] MEDS: BUDESONIDE 0.5 MG/2 ML NEBU INHALATION SCH ×2 (07:13→19:46)
[2021-08-31] MEDS: IPRATROPIUM-ALBUTEROL 3 ML NEB INHALATION SCH ×4 (07:14→19:46)
[2021-08-31] MEDS: guaiFENesin 600 MG TABLET.ER PO SCH (10:05)
[2021-08-31] MEDS: PANTOPRAZOLE 40 MG TABLET PO SCH (10:05)
[2021-08-31] MEDS: APIXABAN 5 MG TAB PO SCH ×2 (10:05→21:31)
[2021-08-31] MEDS: MONTELUKAST 10 MG TAB PO SCH (10:05)
[2021-08-31] MEDS: DILTIAZEM CD 120 MG CAP.ER.24H PO SCH (10:06)
[2021-08-31] MEDS: LEVOFLOXACIN 750 MG TAB PO SCH (10:06)
--- NOTE | 2021-08-31 10:46 | P.PN ---
Subjective Patient was examined at bedside today continues complaining of shortness of breath or wheezing. Overnight she had a very difficult time and breathing treatment also with A. fib RVR that soon after resolved. Patient is in good spirits currently requiring approximately 3-4 L saturating above 90% slightly tachycardic at 105. Objective - Vital Signs Vital signs: Vital Signs Temp 98.2 F 08/31/21 07:25 Pulse 105 H 08/31/21 07:46 Resp 18 08/31/21 08:40 BP 132/79 08/31/21 07:25 Pulse Ox 95 08/31/21 07:25 Intake & Output 08/30/21 08/31/21 08/31/21 18:59 06:59 18:59 Intake Total 600 Balance 600 Weight 60.328 kg Intake: Oral 600 Other: Voiding Method Toilet Toilet # Voids 2 1 - Exam General: non toxic, no distress, appears at stated age, normal weight Derm: no unusual rashes/lesions no unusual ecchymoses, warm, dry Head: atraumatic, normocephalic, symmetric Eyes: EOMI, no lid lag, anicteric sclera, pupils equal round reactive to light ENT: Nose and ears atraumatic, no thrush, no pharyngeal erythema Neck: No thyromegaly, no cervical lymphadenopathy, trachea midline, supple Mouth: no lip lesion, mucus membranes moist Cardiovascular: S1S2 reg, no murmur, positive posterior tibial pulse bilateral, no edema, capillary refill less than 2 seconds Lungs: Bilateral diffuse wheezing auscultated Abdominal: soft, nontender to palpation, no guarding, no appreciable organomeg benson, normal bowel sounds Ext: no gross muscle atrophy, muscle strength 5 out of 5 in all 4 extremities grossly, no contractures, Neuro: CN II-XI grossly intact, light touch intact all 4 extremities, finger to nose within normal limits, Psych: Alert, oriented, appropriate affect - Labs CBC & Chem 7: 08/30/21 06:59 08/30/21 06:59 Labs: Microbiology - Last 24 Hours (Table) 08/29/21 20:22 Gram Stain - Preliminary Sputum Sputum Culture - Preliminary Assessment and Plan Assessment: Assessment: #1 acute approximately respiratory distress secondary to COPD exacerbation #2 atrial fibrillation rate controlled on anticoagulation #3 essential hypertension #4 GERD #5 History tobacco dependence Plan: -Admit to medicine for close monitoring -Aspiration/fall precaution/HB 30 -Maintain saturations above 90% -Continue with IV methylprednisolone and duonebs + pulmicort. -Continue with IV Levaquin -Pulmonary on board -Xanax when necessary -Due to prophylaxis Eliquis -Anticipate discharge in the next 24-48 hours pending clinical course. Disposition continue to monitor for another 24-48 hours the patient did have episode of shortness of breath with A. fib RVR overnight. She still continues to wheeze on examination.
--- NOTE | 2021-08-31 11:23 | P.PN ---
Subjective Progress Note Date: 08/31/21 This is a 81-year-old female patient was Hospital as for an acute COPD exacerbation. The patient's been having increased shortness of breath for the past 5-6 days. The patient started off with symptoms of URI and subsequently she started having increased cough and congestion shortness of breath and whee ze. She contacted her primary care physician. The patient was initially given a course of Levaquin and subsequently she was given a course of doxycycline. Nevertheless, her condition did not improve and the patient up coming into the hospital for further evaluation. The patient was Hospital as for an acute COPD exacerbation. The patient is known to have severe COPD with a post-ABLATION FEV1 of 41% of predicted based on a PFT that was done back in 07/04/2019. The patient also has a diffusion capacity of 36% of predicted. Over the past 2 months, the patient has been maintained on 10 mg of prednisone as maintenance pH was in [place] and her symptoms started getting worse after she arrived back to [place]. She has home O2 and she uses it mainly at nighttime at 2 L. She is an ex-smoker and she carries many years of smoking history. No angina. No palpitation. No increased swelling in lower extremities. No altered mentation P chest x-ray is consistent with COPD. No acute airspace 0 pulmonary infiltrates noted. She is able to speak of. This is a for now. The patient is seen today 08/24/2021 in follow-up on the regular medical floor. She is currently sitting up in a chair at the bedside. Awake and alert in no acute distress. She is maintaining O2 saturations in the 90s on 3 L/m per nasal cannula. She is breathing a bit easier today compared to yesterday. A bit less anxious. Pro-calcitonin 0.04. She is continued on DuoNeb inhalations, Symbicort, IV Solu-Medrol, Singulair. Anticoagulated with Eliquis. The patient is seen today 08/25/2021 in follow-up on the regular medical floor. She is awake and alert in no acute distress. Continues to improve daily. Still not quite back to her baseline. Maintaining O2 saturations in the mid 90s on 3 L/m per nasal cannula. She's afebrile. Hemodynamically stable. Sodium 133. Potassium 4.6. BUN 21. Creatinine 0.6. Glucose 20. Procalcitonin 0.04. She is continued on Symbicort, Singulair, DuoNeb inhalations, IV Solu-Medrol. Anticoagulated with Eliquis. The patient is seen today 08/30/2021 in follow-up on the regular medical floor. She is currently sitting up at the bedside. Awake and alert in no acute distress. She has been slow to progress. She is nearly back to her baseline. Continue O2 saturations in the low 90s on 3 L/m per nasal cannula. Follow-up chest x-ray reveals chronic emphysematous changes without acute pulmonary process. Sputum culture pending. Initial sputum culture revealed no growth. White count 10.3. Hemoglobin 14.5. Sodium 132. Potassium 3.6. BUN 15. Creatinine 0.6. Glucose 153. She is continued on DuoNeb inhalations, Pulmicort and Perforomist inhalations, Singulair, IV Solu-Medrol. Antibiotics in the form of Levaquin. Anticoagulated with Eliquis. The patient is seen today 08/31/2021 in follow-up on the regular medical floor. She is awake and alert in no acute distress. She is still not quite back to her baseline. Dyspneic with minimal exertion. Still somewhat bronchospastic and wheezing. She is continued on DuoNeb inhalations 4 times a day and when necessary, Pulmicort and Perforomist inhalations twice daily, Singulair, Mucinex, IV Solu-Medrol 60 mg every 6 hours. Empiric antibiotics in the form of Levaquin. She remains anticoagulated with Eliquis. Xanax for anxiety as needed. Follow up sputum sample is pending. Objective - Vital Signs Vital signs: Vital Signs Temp 98.2 F 08/31/21 07:25 Pulse 113 H 08/31/21 11:10 Resp 18 08/31/21 08:40 BP 132/79 08/31/21 07:25 Pulse Ox 95 08/31/21 07:25 Intake & Output 08/30/21 08/31/21 08/31/21 18:59 06:59 18:59 Intake Total 600 Balance 600 Weight 60.328 kg Intake: Oral 600 Other: Voiding Method Toilet Toilet # Voids 2 1 - Exam GENERAL EXAM: Alert, frail, very pleasant 81-year-old female patient 3 L nasal cannula, comfortable in no apparent distress. HEAD: Normocephalic. EYES: Normal reaction of pupils, equal size. NOSE: Clear with pink turbinates. THROAT: No erythema or exudates. NECK: No masses, no JVD. CHEST: No chest wall deformity. LUNGS: Equal air entry with bilateral end expiratory wheeze,diminished. CVS: S1 and S2 normal with no audible murmur, regular rhythm. ABDOMEN: No hepatosplenomegaly, normal bowel sounds, no guarding or rigidity. SPINE: No scoliosis or deformity SKIN: No rashes CENTRAL NERVOUS SYSTEM: No focal deficits, tone is normal in all 4 extremities. EXTREMITIES: There is no peripheral edema. No clubbing, no cyanosis. Peripheral pulses are intact. - Labs CBC & Chem 7: 08/30/21 06:59 08/30/21 06:59 Labs: Microbiology - Last 24 Hours (Table) 08/29/21 20:22 Gram Stain - Preliminary Sputum Sputum Culture - Preliminary Assessment and Plan Assessment: 1 Acute exacerbation of COPD with secondary shortness of breath. The patient was treated with antibiotics on outpatient basis without any improvement. The patient end up coming into the hospital for further evaluation and treatment. Follow-up chest x-ray is free of any acute pulmonary infiltrate. 2 Severe COPD with an FEV1 ranging between 36 and 41% of predicted 3 Chronic hypoxic respiratory failure maintained on O2 at nighttime only at 2 L 4 Chronic atrial fibrillation maintained on anticoagulation with Eliquis 5 mg by mouth twice a day and Cardizem 5 Hypertension 6 Anxiety Plan: The patient was seen and evaluated Medications reviewed Still not quite back to her baseline Remains on bronchodilators, IV Solu-Medrol Continued on empiric antibiotic Anticoagulated with Eliquis Titrate her FiO2 as tolerated Increase her activity as tolerated Probable home in the a.m. We will continue to follow I have personally seen and examined the patient, performed the documentation and the assessment and plan as written. Number of minutes spent on the visit: 10.
[2021-08-31] MEDS: ASPIRIN 81 MG PO SCH (21:31)
[2021-09-01] MEDS: IPRATROPIUM-ALBUTEROL 3 ML NEB INHALATION PRN (04:31)
[2021-09-01] MEDS: methylPREDNISolone SOD SUCCI 125 MG/2 ML VIAL IV SCH ×2 (05:06→12:15)
[2021-09-01] MEDS: FORMOTEROL FUMARATE 20 MCG/2 ML NEBU INHALATION SCH (07:59)
[2021-09-01] MEDS: IPRATROPIUM-ALBUTEROL 3 ML NEB INHALATION SCH ×2 (07:59→11:26)
[2021-09-01] MEDS: BUDESONIDE 0.5 MG/2 ML NEBU INHALATION SCH (07:59)
[2021-09-01] MEDS: LEVOFLOXACIN 750 MG TAB PO SCH (08:00)
[2021-09-01] MEDS: guaiFENesin 600 MG TABLET.ER PO SCH (08:00)
[2021-09-01] MEDS: APIXABAN 5 MG TAB PO SCH (08:00)
[2021-09-01] MEDS: MONTELUKAST 10 MG TAB PO SCH (08:00)
[2021-09-01] MEDS: DILTIAZEM CD 120 MG CAP.ER.24H PO SCH (08:00)
[2021-09-01] MEDS: PANTOPRAZOLE 40 MG TABLET PO SCH (08:00)
--- NOTE | 2021-09-01 11:33 | P.PN ---
Subjective Progress Note Date: 09/01/21 This is a 81-year-old female patient was Hospital as for an acute COPD exacerbation. The patient's been having increased shortness of breath for the past 5-6 days. The patient started off with symptoms of URI and subsequently she started having increased cough and congestion shortness of breath and whee ze. She contacted her primary care physician. The patient was initially given a course of Levaquin and subsequently she was given a course of doxycycline. Nevertheless, her condition did not improve and the patient up coming into the hospital for further evaluation. The patient was Hospital as for an acute COPD exacerbation. The patient is known to have severe COPD with a post-ABLATION FEV1 of 41% of predicted based on a PFT that was done back in 07/04/2019. The patient also has a diffusion capacity of 36% of predicted. Over the past 2 months, the patient has been maintained on 10 mg of prednisone as maintenance pH was in [place] and her symptoms started getting worse after she arrived back to [place]. She has home O2 and she uses it mainly at nighttime at 2 L. She is an ex-smoker and she carries many years of smoking history. No angina. No palpitation. No increased swelling in lower extremities. No altered mentation P chest x-ray is consistent with COPD. No acute airspace 0 pulmonary infiltrates noted. She is able to speak of. This is a for now. The patient is seen today 08/24/2021 in follow-up on the regular medical floor. She is currently sitting up in a chair at the bedside. Awake and alert in no acute distress. She is maintaining O2 saturations in the 90s on 3 L/m per nasal cannula. She is breathing a bit easier today compared to yesterday. A bit less anxious. Pro-calcitonin 0.04. She is continued on DuoNeb inhalations, Symbicort, IV Solu-Medrol, Singulair. Anticoagulated with Eliquis. The patient is seen today 08/25/2021 in follow-up on the regular medical floor. She is awake and alert in no acute distress. Continues to improve daily. Still not quite back to her baseline. Maintaining O2 saturations in the mid 90s on 3 L/m per nasal cannula. She's afebrile. Hemodynamically stable. Sodium 133. Potassium 4.6. BUN 21. Creatinine 0.6. Glucose 20. Procalcitonin 0.04. She is continued on Symbicort, Singulair, DuoNeb inhalations, IV Solu-Medrol. Anticoagulated with Eliquis. The patient is seen today 08/30/2021 in follow-up on the regular medical floor. She is currently sitting up at the bedside. Awake and alert in no acute distress. She has been slow to progress. She is nearly back to her baseline. Continue O2 saturations in the low 90s on 3 L/m per nasal cannula. Follow-up chest x-ray reveals chronic emphysematous changes without acute pulmonary process. Sputum culture pending. Initial sputum culture revealed no growth. White count 10.3. Hemoglobin 14.5. Sodium 132. Potassium 3.6. BUN 15. Creatinine 0.6. Glucose 153. She is continued on DuoNeb inhalations, Pulmicort and Perforomist inhalations, Singulair, IV Solu-Medrol. Antibiotics in the form of Levaquin. Anticoagulated with Eliquis. The patient is seen today 08/31/2021 in follow-up on the regular medical floor. She is awake and alert in no acute distress. She is still not quite back to her baseline. Dyspneic with minimal exertion. Still somewhat bronchospastic and wheezing. She is continued on DuoNeb inhalations 4 times a day and when necessary, Pulmicort and Perforomist inhalations twice daily, Singulair, Mucinex, IV Solu-Medrol 60 mg every 6 hours. Empiric antibiotics in the form of Levaquin. She remains anticoagulated with Eliquis. Xanax for anxiety as needed. Follow up sputum sample is pending. The patient is seen today 09/01/2021 in follow-up on the regular medical floor. She is up ambulating in her room. Awake and alert in no acute distress. She remains quite dyspneic on minimal exertion. Remains quite anxious. Anxious at the thought of going home. Sputum culture revealed no growth 2. She is zhang ntaining O2 saturations in the 90s on 3 L/m per nasal cannula. She's been afebrile. Hemodynamically stable. Continued on IV Solu-Medrol, DuoNeb inhalations, Singulair, Perforomist and Pulmicort inhalations. Empiric antibiotics in the form of Levaquin. She remains on Mucinex. She is anticoagulated with Eliquis. Xanax as needed. Objective - Vital Signs Vital signs: Vital Signs Temp 97.7 F 09/01/21 05:00 Pulse 100 09/01/21 08:26 Resp 24 09/01/21 05:00 BP 147/63 09/01/21 05:00 Pulse Ox 93 L 09/01/21 05:00 Intake & Output 08/31/21 09/01/21 09/01/21 18:59 06:59 18:59 Other: Voiding Method Toilet Toilet # Voids 1 1 - Exam GENERAL EXAM: Alert, frail, anxious 81-year-old female on 3 L nasal cannula, comfortable in no apparent distress. HEAD: Normocephalic. EYES: Normal reaction of pupils, equal size. NOSE: Clear with pink turbinates. THROAT: No erythema or exudates. NECK: No masses, no JVD. CHEST: No chest wall deformity. LUNGS: Equal air entry with bilateral end expiratory wheeze,diminished. CVS: S1 and S2 normal with no audible murmur, regular rhythm. ABDOMEN: No hepatosplenomegaly, normal bowel sounds, no guarding or rigidity. SPINE: No scoliosis or deformity SKIN: No rashes CENTRAL NERVOUS SYSTEM: No focal deficits, tone is normal in all 4 extremities. EXTREMITIES: There is no peripheral edema. No clubbing, no cyanosis. Periphe ral pulses are intact. - Labs CBC & Chem 7: 08/30/21 06:59 08/30/21 06:59 Labs: Microbiology - Last 24 Hours (Table) 08/29/21 20:22 Gram Stain - Final Sputum Sputum Culture - Final Assessment and Plan Assessment: 1 Acute exacerbation of COPD with secondary shortness of breath. The patient was treated with antibiotics on outpatient basis without any improvement. Follow-up chest x-ray is free of any acute pulmonary infiltrate. 2 Severe COPD with an FEV1 ranging between 36 and 41% of predicted 3 Chronic hypoxic respiratory failure maintained on O2 at nighttime only at 2 L 4 Chronic atrial fibrillation maintained on anticoagulation with Eliquis 5 mg by mouth twice a day and Cardizem 5 Hypertension 6 Anxiety Plan: The patient was seen and evaluated Medications reviewed Remains quite anxious about going home Continue the current treatment plan Increase her activity as tolerated Home once cleared by medicine I have personally seen and examined the patient, performed the documentation and the assessment and plan as written. Number of minutes spent on the visit: 10.
[2021-09-01 12:03] VITALS: BP 144/75; PULSE 86; RESP 20; TEMP 97.8
[2021-09-01] MEDS ORDERED: predniSONE 20 MG TAB PO SCH (12:15)
[2021-09-01] MEDS ORDERED: FUROSEMIDE 20 MG TAB PO STA (12:39)
--- NOTE | 2021-09-01 16:05 | P.DS ---
Providers Date of admission: 08/23/21 11:46 Attending physician: Grace Elaine MD Consults: 08/22/21 23:39 Consult Physician Urgent Consulting Provider: Maryann Geller Consult Reason/Comments: Acute COPD exacerbation Do you want consulting provider notified?: Yes Primary care physician: Haresh Almaraz [facility] Course: History of Present Illness H&P Date: 08/22/21 Patient is an 81-year-old female with a PMH of A. fib on Eliquis, COPD, chronic hypoxic respiratory failure on 2 L is a cannula oxygen at night, and GERD who presented to the emergency room complaints of shortness of breath and cough. The patient reports that over the past 2-3 weeks, she has had gradually worsening cough productive of yellow-green phlegm as well as wheezing and shortness breath. She reports being seen by her PCP twice for this complaint, and being prescribed levofloxacin and prednisone, following which she had minimal improvement, and was then prescribed a higher dose of prednisone with doxycycline which also did not alleviate her symptoms. She reports that her symptoms are very much in line with her prior episodes of COPD exacerbation. She reports a significant history of tobacco abuse but states that she quit over a decade ago. She denied experiencing chest discomfort, palpitations, nausea, vomiting, abdominal pain, diarrhea. In the emergency room, the patient had and SpO2 of 81% on 3 L is a cannula oxygen. Laboratory evaluation revealed a sodium of 129 chloride 94, with troponin 0.014. Chest x-ray was consistent with COPD with EKG showing normal sinus rhythm at 76 bpm with T-wave inversion in leads V1 and V2 and poor R-wave progression. Hospital course and problem list: #Acute exacerbation of COPD -Improved -Patient be switched to prednisone taper on discharge -Finished Levaquin. -Pulmonary clear the patient for discharge -Moran and influenza has been ruled out -Follow up with PCP 1 week #Lower extremity edema -7 days course of Lasix 20 mg daily -To be Evaluated by primary care physician 1 week after discharge #Severe COPD with an FEV1 ranging between 36 and 41% of predicted #Chronic hypoxic respiratory failure maintained on O2 at nighttime only at 2 L #Chronic atrial fibrillation maintained on anticoagulation with Eliquis 5 mg by mouth twice a day and Cardizem #Hypertension #Anxiety Patient Condition at Discharge: Stable Plan - Discharge Summary New Discharge Prescriptions: New Furosemide [Lasix] 20 mg PO DAILY 7 Days #7 tab predniSONE 10 mg PO DIRECTED #60 tab Continue Loratadine [Claritin] 10 mg PO DAILY Famotidine [Pepcid] 20 mg PO BID Aspirin 81 mg PO HS Apixaban [Eliquis] 5 mg PO BID Ipratropium-Albuterol Nebulize [Duoneb 0.5 mg-3 mg/3 ml Soln] 3 ml INHALATION RT-QID PRN PRN Reason: Shortness Of Breath Diltiazem HCl [Cardizem LA] 120 mg PO DAILY Albuterol Inhaler [Ventolin Hfa Inhaler] 2 puff INHALATION RT-QID PRN PRN Reason: Shortness Of Breath Albuterol Nebulized [Ventolin Nebulized] 2.5 mg INHALATION RT-QID PRN PRN Reason: Shortness Of Breath Phenylephrine 1% Nasal [place] [Ronaldo-Synephrine 1% Nasal] 1 - 2 spray EA NOSTRIL Q4H PRN PRN Reason: Congestion Montelukast [Singulair] 10 mg PO DAILY Budesonide/Formoterol Fumarate [Symbicort 160-4.5 Mcg Inhaler] 2 puff INHALATION RT-BID Discontinued Doxycycline Monohydrate 100 mg PO BID predniSONE 1 dose PO DIRECTED Discharge Medication List Albuterol Nebulized [Ventolin Nebulized] 2.5 mg INHALATION RT-QID PRN 10/01/20 [History] Apixaban [Eliquis] 5 mg PO BID 10/01/20 [History] Aspirin 81 mg PO HS 10/01/20 [History] Famotidine [Pepcid] 20 mg PO BID 10/01/20 [History] Loratadine [Claritin] 10 mg PO DAILY 10/01/20 [History] Albuterol Inhaler [Ventolin Hfa Inhaler] 2 puff INHALATION RT-QID PRN 08/22/21 [History] Budesonide/Formoterol Fumarate [Symbicort 160-4.5 Mcg Inhaler] 2 puff INHALATION RT-BID 08/22/21 [History] Diltiazem HCl [Cardizem LA] 120 mg PO DAILY 08/22/21 [History] Ipratropium-Albuterol Nebulize [Duoneb 0.5 mg-3 mg/3 ml Soln] 3 ml INHALATION RT-QID PRN 08/22/21 [History] Montelukast [Singulair] 10 mg PO DAILY 08/22/21 [History] Phenylephrine 1% Nasal [place] [Ronaldo-Synephrine 1% Nasal] 1 - 2 spray EA NOSTRIL Q4H PRN 08/22/21 [History] Furosemide [Lasix] 20 mg PO DAILY 7 Days #7 tab 09/01/21 [Rx] predniSONE 10 mg PO DIRECTED #60 tab 09/01/21 [Rx] Follow up Appointment(s)/Referral(s): Haresh Almaraz MD [Primary Care Provider] - 09/05/21 8:00 am Patient Instructions/Handouts: Furosemide (By mouth), Prednisone (By mouth), Hyponatremia (DC), COPD (Chronic Obstructive Pulmonary Disease) (DC), Hypoxia (GEN) Discharge Disposition: HOME SELF-CARE
== END 2021-09-01 14:45 | disposition home or self-care (01) | DRG 190 ==
LOC: EC 11:52 → 6NMEDSUR 20:05 → OBSVTOIN 08-23 11:46 → 5NMEDONC 09-01 00:32
PROVIDERS: ADMIT Internal Medicine; ATTEND Internal Medicine
DX: J44.1 Chronic obstructive pulmonary disease with (acute) exacerbation (principal); J96.21 Acute and chronic respiratory failure with hypoxia; E87.1 Hypo-osmolality and hyponatremia; I48.20 Chronic atrial fibrillation, unspecified; F41.9 Anxiety disorder, unspecified; I10 Essential (primary) hypertension; J06.9 Acute upper respiratory infection, unspecified; K21.9 Gastro-esophageal reflux disease without esophagitis; Z20.822 Contact with and (suspected) exposure to COVID-19; Z79.01 Long term (current) use of anticoagulants; Z79.51 Long term (current) use of inhaled steroids; Z79.52 Long term (current) use of systemic steroids; Z79.82 Long term (current) use of aspirin; Z79.899 Other long term (current) drug therapy; Z87.891 Personal history of nicotine dependence; Z88.0 Allergy status to penicillin
CPT/HCPCS: 36415; 71045; 71046; 71260; 80048; 80053; 81003; 83605; 83735; 83880; 84145; 84484; 85025; 85379; 85610; 85730; 87070; 87205; 87502; 87635; 93005; 94640; 94760; 96361; 96374; 99285

== ENCOUNTER 2022-12-31 15:39 | Inpatient (IN) | payer MEDICARE ==
[2022-12-31] MEDS ORDERED: ALBUTEROL NEBULIZED 2.5 MG/3 ML INHALATION STA (16:45)
[2022-12-31] MEDS ORDERED: IPRATROPIUM 0.5 MG/2.5 ML NEBU INHALATION STA (16:45)
[2022-12-31] MEDS ORDERED: DEXAMETHASONE SOD PHOSPHATE 10 MG/ML 1 ML VIAL IVP STA (16:46)
[2022-12-31 16:58] LABS: Basophils % (A) 0 %; Eosinophils # (A) 0.5 k/uL (0-0.7); Eosinophils % (A) 7 %; HGB 12.4 gm/dL (11.4-16.0); Lymphocytes % (A) 31 %; MCH 31.3 pg (25.0-35.0); MCHC 34.5 g/dL (31.0-37.0); MCV 90.5 fL (80.0-100.0); Mean Platelet Volume 7.9; Monocytes # (A) 0.6 k/uL (0-1.0); Monocytes % (A) 9 %; Neutrophils # (A) 3.3 k/uL (1.3-7.7); Neutrophils % (A) 50 %; Platelet Count 318 k/uL (150-450); RBC 3.98 m/uL (3.80-5.40); RDW 13.8 % (11.5-15.5); WBC 6.5 k/uL (3.8-10.6)
--- NOTE | 2022-12-31 17:03 | XR ---
EXAMINATION TYPE: XR chest 2V DATE OF EXAM: 12/31/2022 4:52 PM COMPARISON: Chest radiographs from 06/08/2022 TECHNIQUE: XR chest 2V Frontal and lateral views of the chest. CLINICAL INDICATION:Female, 82 years old with history of CP; FINDINGS: Lungs/Pleura: There is flattening of the diaphragm with increased lucency of the lungs. No evidence o f pneumothorax, pleural effusion or focal consolidation. Biapical thickening. Hyperinflation. Pulmonary vascularity: Unremarkable. Heart/mediastinum: Cardiomediastinal silhouette is unremarkable. Atherosclerotic calcifications are seen in the aorta. Musculoskeletal: Multiple level degenerative disc disease changes seen throughout the spine. IMPRESSION: 1. No acute cardiopulmonary disease process. 2. COPD changes.
[2022-12-31 17:06] LABS: ALT 26 U/L (4-34); AST 33 U/L (14-36); African American GFR (CKD) 87 (>60 ml/min/1.73 sqM); Albumin 4.3 g/dL (3.5-5.0); Alkaline Phosphatase 71 U/L (38-126); Anion Gap 9 mmol/L; Blood Urea Nitrogen 20 mg/dL (7-17); Calcium 9.9 mg/dL (8.4-10.2); Carbon Dioxide 30 mmol/L (22-30); Chloride 94 mmol/L (98-107); Glucose 99 mg/dL (74-99); Lipase 122 U/L (23-300); Magnesium 1.8 mg/dL (1.6-2.3); Non-African American GFR(CKD) 76 (>60 ml/min/1.73 sqM); Potassium 4.3 mmol/L (3.5-5.1); Sodium 133 mmol/L (137-145); Total Bilirubin 0.8 mg/dL (0.2-1.3); Total Protein 6.9 g/dL (6.3-8.2)
[2022-12-31 17:09] LABS: INR 0.9 (<1.2); Partial Thromboplastin Time 24.2 sec (22.0-30.0); Prothrombin Time 10.1 sec (9.0-12.0)
[2022-12-31 17:15] LABS: NT-Pro-B-Type Natriuretic Pept 69 pg/mL
--- NOTE | 2022-12-31 17:26 | ED ---
General Adult HPI - General Chief complaint: Shortness of Breath Stated complaint: SARAH Time Seen by Provider: 12/31/22 16:04 Source: patient Mode of arrival: wheelchair Limitations: no limitations - History of Present Illness Initial comments: This is an 82-year-old female with a past medical history including COPD on home oxygen presents emergency department for shortness of breath. The patient stated over the last 3 days she had worsening and persistent shortness of breath and could not get a full breath. The patient stated that she used her nebulizer at home without any relief so she came to the emergency department. The patient was unsure but does trigger her COPD but did state that the humidity and weather change does make it worse. The patient was otherwise resting in bed comfortably without any further stress. The patient also stated that she had bilateral lower extremity swelling that was worse over the last 1 day. The patient denied any lightheadedness, chest pain or nausea or vomiting. - Related Data Home Medications Medication Instructions Recorded Confirmed Albuterol Nebulized [Ventolin 2.5 mg INHALATION RT-QID 10/01/20 06/06/22 Nebulized] Apixaban [Eliquis] 5 mg PO BID 10/01/20 06/06/22 Famotidine [Pepcid] 20 mg PO BID 10/01/20 06/06/22 Loratadine [Claritin] 10 mg PO DAILY 10/01/20 06/06/22 Albuterol Inhaler [Ventolin Hfa 2 puff INHALATION RT-QID PRN 08/22/21 06/06/22 Inhaler] Budesonide/Formoterol Fumarate 2 puff INHALATION RT-BID 08/22/21 06/06/22 [Symbicort 160-4.5 Mcg Inhaler] Montelukast [Singulair] 10 mg PO DAILY 08/22/21 06/06/22 Ascorbic Acid [Vitamin C] 1,000 mg PO DAILY 06/06/22 06/06/22 Cholecalciferol [Vitamin D3 (25 25 mcg PO DAILY 06/06/22 06/06/22 Mcg = 1000 Iu)] Magnesium Oxide [Mag-Ox] 400 mg PO HS 06/06/22 06/06/22 Spironolactone 25 mg PO DAILY 06/06/22 06/06/22 Zinc Gluconate [Zinc] 50 mg PO DAILY 06/06/22 06/06/22 predniSONE 30 mg PO DAILY 06/06/22 06/06/22 traMADol HCL 50 mg PO BID PRN 06/06/22 06/06/22 Previous Rx's Medication Instructions Recorded Diltiazem Cd [Cardizem CD] 180 mg PO DAILY #30 cap 06/13/22 predniSONE 10 mg PO DAILY #20 tab 06/13/22 Allergies Allergy/AdvReac Type Severity Reaction Status Date / Time amoxicillin Allergy Rash/Hives Verified 12/31/22 15:43 Penicillins Allergy Rash/Hives Verified 12/31/22 15:43 all over and shortness of breath Review of Systems ROS Statement: Those systems with pertinent positive or pertinent negative responses have been documented in the HPI. ROS Other: All systems not noted in ROS Statement are negative. Past Medical History Past Medical History: Atrial Fibrillation, COPD, GERD/Reflux Additional Past Medical History / Comment(s): oxygen @2l PRN mostly @HS, frequent "infections" in lungs over past year, COPD and prednisone 10 mg daily for the past months, she has not infected or vaccinated with COVID 19 History of Any Multi-Drug Resistant Organisms: None Reported Past Surgical History: Appendectomy, Orthopedic Surgery Additional Past Surgical History / Comment(s): CTS right wrist, cataracts removed Past Anesthesia/Blood Transfusion Reactions: No Reported Reaction Past Psychological History: No Psychological Hx Reported Smoking Status: Former smoker Past Alcohol Use History: None Reported Past Drug Use History: None Reported - Past Family History Mother Family Medical History: Myocardial Infarction ([place]) Father Family Medical History: Cancer General Exam Limitations: no limitations General appearance: alert, in no apparent distress Head exam: Present: atraumatic, normocephalic, normal inspection Eye exam: Present: normal appearance, PERRL Pupils: Present: normal accommodation ENT exam: Present: normal exam, normal oropharynx, mucous membranes moist Neck exam: Present: normal inspection, full ROM Respiratory exam: Present: wheezes, decreased breath sounds Cardiovascular Exam: Present: regular rate, normal rhythm, normal heart sounds GI/Abdominal exam: Present: soft, normal bowel sounds Extremities exam: Present: normal inspection, full ROM Back exam: Present: normal inspection, full ROM Neurological exam: Present: alert, oriented X3, CN II-XII intact Psychiatric exam: Present: normal affect, normal mood Skin exam: Present: warm, dry Course Vital Signs 12/31/22 12/31/22 12/31/22 15:40 15:59 16:43 Temperature 98.4 F Pulse Rate 96 Respiratory 24 28 H Rate Blood Pressure 132/82 O2 Sat by Pulse 87 L 95 Oximetry 12/31/22 12/31/22 12/31/22 16:58 17:12 17:26 Temperature Pulse Rate 87 90 86 Respiratory Rate Blood Pressure O2 Sat by Pulse Oximetry 12/31/22 17:55 Temperature Pulse Rate 91 Respiratory 24 Rate Blood Pressure 156/77 O2 Sat by Pulse 96 Oximetry EKG Findings - EKG Comments: EKG Findings:: An EKG was obtained and was interpreted by myself showing a rate of 93, SC interval 145, QR muslim of 85 and QTC of 4:15. This EKG showed a normal sinus rhythm with no ST segment elevation or depression noted. Medical Decision Making - Medical Decision Making Was pt. sent in by a medical professional or institution (, PA, MANAGER CALL, urgent care, hospital, or fpc...) When possible be specific @ -No Did you speak to anyone other than the patient for history (EMS, parent, family, police, friend...)? What history was obtained from this source @ -No Did you review nursing and triage notes (agree or disagree)? Why? @ -I reviewed and agree with nursing and triage notes Were old charts reviewed (outside hosp., previous admission, EMS record, old EKG, old radiological studies, urgent care reports/EKG's, fpc records)? Report findings @ -No old charts were reviewed Differential Diagnosis (chest pain, altered mental status, abdominal pain women, abdominal pain men, vaginal bleeding, weakness, fever, dyspnea, syncope, headache, dizziness, GI bleed, back pain, seizure, CVA, palpatations, mental health)? @ -COPD exacerbation, CHF exacerbation, pneumonia EKG interpreted by me (3pts min.). @ -As above X-rays interpreted by me (1pt min.). @ -A chest x-ray was obtained and was interpreted by myself showing no acute cardio pulmonary process. There was COPD changes CT interpreted by me (1pt min.). @ -None done U/S interpreted by me (1pt. min.). @ -None done What testing was considered but not performed or refused? (CT, X-rays, U/S, labs)? Why? @ -None What meds were considered but not given or refused? Why? @ -None Did you discuss the management of the patient with other professionals (professionals i.e. , PA, MANAGER CALL, lab, RT, psych nurse, social media assistant, structures mechanic, teacher, low altitude air defense officer, case checker)? Give summary @ -Yes, admitting physician was contacted regarding patient admission Was smoking cessation discussed for >3mins.? @ -No Was critical care preformed (if so, how long)? @ -No Were there social determinants of health that impacted care today? How? (Homelessness, low income, unemployed, alcoholism, drug addiction, transportation, low edu. Level, literacy, decrease access to med. care, intermediate, rehab)? @ -No Was there de-escalation of care discussed even if they declined (Discuss DNR or withdrawal of care, Hospice)? DNR status @ -No What co-morbidities impacted this encounter? (DM, HTN, Smoking, COPD, CAD, Cancer, CVA, ARF, Chemo, Hep., AIDS, mental health diagnosis, sleep apnea, morbid obesity)? @ -COPD Was patient admitted / discharged? Hospital course, mention meds given and route, prescriptions, significant lab abnormalities, going to OR and other pertinent info. @ -The patient was seen and evaluated emergency department. On physical exam, the patient was resting in bed in minimal distress secondary to respiratory distress. Vital signs admission showed hypoxia on her home dose of oxygen. Due to the nature the patient's complaints and hypoxia, laboratory workup was obtained and the patient was given a breathing treatment of albuterol, ipratropium as well as a dose of Decadron. On reevaluation, the patient continued expiratory wheezes but did state that her symptoms were mildly improved. Due to the patient had persistent symptoms in the setting of the patient's hypoxia, the patient will be admitted for COPD exacerbation. The patient was agreeable to this plan. The patient was admitted in stable condition. Undiagnosed new problem with uncertain prognosis? @ -No Drug Therapy requiring intensive monitoring for toxicity (Heparin, Nitro, Insulin, Cardizem)? @ -No Were any procedures done? @ -No Diagnosis/symptom? @ -COPD exacerbation with hypoxia Acute, or Chronic, or Acute on Chronic? @ -Acute on chronic Uncomplicated (without systemic symptoms) or Complicated (systemic symptoms)? @ -Compliacted Side effects of treatment? @ -No Exacerbation, Progression, or Severe Exacerbation? @ -Exacerbation Poses a threat to life or bodily function? How? (Chest pain, [place], [place], pneumonia, PE, COPD, DKA, ARF, appy, cholecystitis, CVA, Diverticulitis, Homicidal, Suicida l, threat to staff... and all critical care pts) @ -Yes, continued hypoxic can lead to end organ damage and possible . - Lab Data Result diagrams: 12/31/22 16:43 12/31/22 16:43 Lab Results 12/31/22 12/31/22 12/31/22 Range/Units 16:43 16:43 16:43 WBC 6.5 (3.8-10.6) k/uL RBC 3.98 (3.80-5.40) m/uL Hgb 12.4 (11.4-16.0) gm/dL Hct 36.0 (34.0-46.0) % MCV 90.5 (80.0-100.0) fL MCH 31.3 (25.0-35.0) pg MCHC 34.5 (31.0-37.0) g/dL RDW 13.8 (11.5-15.5) % Plt Count 318 (150-450) k/uL MPV 7.9 Neutrophils % 50 % Lymphocytes % 31 % Monocytes % 9 % Eosinophils % 7 % Basophils % 0 % Neutrophils # 3.3 (1.3-7.7) k/uL Lymphocytes # 2.0 (1.0-4.8) k/uL Monocytes # 0.6 (0-1.0) k/uL Eosinophils # 0.5 (0-0.7) k/uL Basophils # 0.0 (0-0.2) k/uL PT 10.1 (9.0-12.0) sec INR 0.9 (<1.2) APTT 24.2 (22.0-30.0) sec Sodium 133 L (137-145) mmol/L Potassium 4.3 (3.5-5.1) mmol/L Chloride 94 L (98-107) mmol/L Carbon Dioxide 30 (22-30) mmol/L Anion Gap 9 mmol/L BUN 20 H (7-17) mg/dL Creatinine 0.74 (0.52-1.04) mg/dL Est GFR (CKD-EPI)AfAm 87 (>60 ml/min/1.73 sqM) Est GFR (CKD-EPI)NonAf 76 (>60 ml/min/1.73 sqM) Glucose 99 (74-99) mg/dL Calcium 9.9 (8.4-10.2) mg/dL Magnesium 1.8 (1.6-2.3) mg/dL Total Bilirubin 0.8 (0.2-1.3) mg/dL AST 33 (14-36) U/L ALT 26 (4-34) U/L Alkaline Phosphatase 71 (38-126) U/L Troponin I (0.000-0.034) ng/mL NT-Pro-B Natriuret Pep 69 pg/mL Total Protein 6.9 (6.3-8.2) g/dL Albumin 4.3 (3.5-5.0) g/dL Lipase 122 (23-300) U/L 12/31/22 Range/Units 16:43 WBC (3.8-10.6) k/uL RBC (3.80-5.40) m/uL Hgb (11.4-16.0) gm/dL Hct (34.0-46.0) % MCV (80.0-100.0) fL MCH (25.0-35.0) pg MCHC (31.0-37.0) g/dL RDW (11.5-15.5) % Plt Count (150-450) k/uL MPV Neutrophils % % Lymphocytes % % Monocytes % % Eosinophils % % Basophils % % Neutrophils # (1.3-7.7) k/uL Lymphocytes # (1.0-4.8) k/uL Monocytes # (0-1.0) k/uL Eosinophils # (0-0.7) k/uL Basophils # (0-0.2) k/uL PT (9.0-12.0) sec INR (<1.2) APTT (22.0-30.0) sec Sodium (137-145) mmol/L Potassium (3.5-5.1) mmol/L Chloride (98-107) mmol/L Carbon Dioxide (22-30) mmol/L Anion Gap mmol/L BUN (7-17) mg/dL Creatinine (0.52-1.04) mg/dL Est GFR (CKD-EPI)AfAm (>60 ml/min/1.73 sqM) Est GFR (CKD-EPI)NonAf (>60 ml/min/1.73 sqM) Glucose (74-99) mg/dL Calcium (8.4-10.2) mg/dL Magnesium (1.6-2.3) mg/dL Total Bilirubin (0.2-1.3) mg/dL AST (14-36) U/L ALT (4-34) U/L Alkaline Phosphatase (38-126) U/L Troponin I <0.012 (0.000-0.034) ng/mL NT-Pro-B Natriuret Pep pg/mL Total Protein (6.3-8.2) g/dL Albumin (3.5-5.0) g/dL Lipase (23-300) U/L Disposition Clinical Impression: COPD exacerbation, Hypoxia Disposition: ADMITTED IP TO THIS HOSP Condition: Stable Is patient prescribed a controlled substance at d/c from ED?: No Referrals: Haresh Almaraz MD [Primary Care Provider] - 1-2 days Time of Disposition: 17:00 Decision to Admit Reason: Admit from EC Decision Date: 12/31/22 Decision Time: 17:00
[2022-12-31] MEDS ORDERED: NALOXONE 0.4 MG/ML 1 ML VIAL IV PRN (18:01)
[2022-12-31] MEDS: IPRATROPIUM-ALBUTEROL 3 ML NEB INHALATION PRN ×2 (19:53→22:43)
[2022-12-31] MEDS ORDERED: traMADol 50 MG TAB PO PRN (20:06)
--- NOTE | 2022-12-31 20:14 | P.HPIM ---
History of Present Illness H&P Date: 12/31/22 Chief Complaint: Shortness of breath 82-year-old female with a past medical history including COPD on home oxygen presents emergency department for shortness of breath. The patient stated over the last 3 days she had worsening and persistent shortness of breath and could not get a full breath. The patient stated that she used her nebulizer at home without any relief so she came to the emergency department. The patient was unsure but does trigger her COPD but did state that the humidity and weather change does make it worse. The patient was otherwise resting in bed comfortably without any further stress. The patient also stated that she had bilateral lower extremity swelling that was worse over the last 1 day. The patient denied any lightheadedness, chest pain or nausea or vomiting. EKG Findings:: showing a rate of 93, TN interval 145, QR bahai of 85 and QTC of 4:15. This EKG showed a normal sinus rhythm with no ST segment elevation or depression noted. Chest x-ray doesn't reveal any acute cardiopulmonary process; COPD changes are seen Blood work completed today reveals a WBC of 6.5, hemoglobin of 12.4 and platelet count of 2.8, sodium 133, potassium 4.3, BUN/creatinine of 20/0.74, blood glucose of 99, troponin of less than 0.012 Review of Systems REVIEW OF SYSTEMS: CONSTITUTIONAL: No fever, no malaise, no fatigue. HEENT: No recent visual problems or hearing problems. Denied any sore throat. CARDIOVASCULAR: No chest pain, orthopnea, PND, no palpitations, no syncope. PULMONARY: No shortness of breath, no cough, no hemoptysis. GASTROINTESTINAL: No diarrhea, no nausea, no vomiting, no abdominal pain. NEUROLOGICAL: No headaches, no weakness, no numbness. HEMATOLOGICAL: Denies any bleeding or petechiae. GENITOURINARY: Denies any burning micturition, frequency, or urgency. MUSCULOSKELETAL/RHEUMATOLOGICAL: Denies any joint pain, swelling, or any muscle pain. ENDOCRINE: Denies any polyuria or polydipsia. The rest of the 14-point review of systems is negative. Past Medical History Past Medical History: Atrial Fibrillation, COPD, GERD/Reflux Additional Past Medical History / Comment(s): oxygen @2l PRN mostly @HS, frequent "infections" in lungs over past year, COPD and prednisone 10 mg daily for the past months, she has not infected or vaccinated with COVID 19 History of Any Multi-Drug Resistant Organisms: None Reported Past Surgical History: Appendectomy, Orthopedic Surgery Additional Past Surgical History / Comment(s): CTS right wrist, cataracts removed Past Anesthesia/Blood Transfusion Reactions: No Reported Reaction Past Psychological History: No Psychological Hx Reported Smoking Status: Former smoker Past Alcohol Use History: None Reported Past Drug Use History: None Reported - Past Family History Mother Family Medical History: Myocardial Infarction ([place]) Father Family Medical History: Cancer Medications and Allergies Home Medications Medication Instructions Recorded Confirmed Type Albuterol Nebulized [Ventolin 2.5 mg INHALATION RT-QID PRN 10/01/20 12/31/22 History Nebulized] Famotidine [Pepcid] 20 mg PO BID 10/01/20 12/31/22 History Loratadine [Claritin] 10 mg PO DAILY 10/01/20 12/31/22 History Albuterol Inhaler [Ventolin Hfa 2 puff INHALATION RT-QID PRN 08/22/21 12/31/22 History Inhaler] Budesonide/Formoterol Fumarate 2 puff INHALATION RT-BID 08/22/21 12/31/22 History [Symbicort 160-4.5 Mcg Inhaler] Magnesium Oxide [Mag-Ox] 400 mg PO HS 06/06/22 12/31/22 History Spironolactone 25 mg PO DAILY 06/06/22 12/31/22 History traMADol HCL 50 mg PO BID PRN 06/06/22 12/31/22 History Diltiazem Cd [Cardizem CD] 180 mg PO DAILY #30 cap 06/13/22 12/31/22 Rx Apixaban [Eliquis] 2.5 mg PO BID 12/31/22 12/31/22 History Ipratropium-Albuterol Nebulize 3 ml INHALATION RT-QID PRN 12/31/22 12/31/22 History [Duoneb 0.5 mg-3 mg/3 ml Soln] Rosuvastatin [Crestor] 10 mg PO DAILY 12/31/22 12/31/22 History Allergies Allergy/AdvReac Type Severity Reaction Status Date / Time amoxicillin Allergy Rash/Hives Verified 12/31/22 18:24 Penicillins Allergy Rash/Hives Verified 12/31/22 18:24 all over and shortness of breath Physical Exam Vitals: Vital Signs Temp Pulse Resp BP Pulse Ox 12/31/22 17:55 91 24 156/77 96 12/31/22 17:26 86 12/31/22 17:12 90 12/31/22 16:58 87 12/31/22 16:43 95 12/31/22 15:59 28 H 12/31/22 15:40 98.4 F 96 24 132/82 87 L Intake and Output 12/31/22 12/31/22 12/31/22 06:59 14:59 22:59 Other: Weight 58.513 kg General appearance: alert, in no apparent distress Head exam: Present: atraumatic, normocephalic, normal inspection Eye exam: Present: normal appearance, PERRL Pupils: Present: normal accommodation ENT exam: Present: normal exam, normal oropharynx, mucous membranes moist Neck exam: Present: normal inspection, full ROM Respiratory exam: Present: wheezes, decreased breath sounds Cardiovascular Exam: Present: regular rate, normal rhythm, normal heart sounds GI/Abdominal exam: Present: soft, normal bowel sounds Extremities exam: Present: normal inspection, full ROM Neurological exam: Present: alert, oriented X3, CN II-XII intact Skin exam: Present: warm, dry Results CBC & Chem 7: 12/31/22 16:43 12/31/22 16:43 Labs: Abnormal Lab Results - Last 24 Hours (Table) 12/31/22 Range/Units 16:43 Sodium 133 L (137-145) mmol/L Chloride 94 L (98-107) mmol/L BUN 20 H (7-17) mg/dL Assessment and Plan Assessment: 1. Acute hypoxic respiratory failure; related to COPD exacerbation - Patient is placed on O2 at 3 L per nasal cannula; plan to titrate as able keeping O2 saturation greater than 92% 2. COPD exacerbation; patient is placed on IV steroids; methylprednisolone 60 mg IV every 6 hours; DuoNeb nebulizer treatments 4 times a day and when necessary; start patient on doxycycline 100 mg twice a day - Consult pulmonary for further recommendations 3. Hypertension; Cardizem CD 180 mg daily 4. Atrial fibrillation; patient is rate controlled on diltiazem 180 mg daily; anticoagulated with Ahlquist 2.5 mg twice a day 5. Hyperlipidemia; Crestor 10 mg daily 6. Hypomagnesemia; magnesium 400 mg by mouth daily at bedtime 7. Seasonal ALLERGIES; loratadine 10 mg daily DVT prophylaxis; SCDs/systemic anticoagulation CODE STATUS; full code
[2022-12-31] MEDS: FAMOTIDINE 20 MG TAB PO SCH (20:33)
[2022-12-31] MEDS: APIXABAN 2.5 MG TABLET PO SCH (20:33)
[2022-12-31] MEDS: MAGNESIUM OXIDE 400 MG TAB PO SCH (20:33)
[2022-12-31] MEDS: methylPREDNISolone SOD SUCCI 125 MG/2 ML VIAL IV SCH (20:34)
[2022-12-31] MEDS: DOXYCYCLINE 100 MG in SODIUM CHLORIDE 0.9% 100 ML IVPB SCH (21:07)
[2023-01-01] MEDS ORDERED: ALBUTEROL HFA INHALER INHALATION PRN (01:09)
[2023-01-01] MEDS: methylPREDNISolone SOD SUCCI 125 MG/2 ML VIAL IV SCH ×4 (03:06→20:46)
--- NOTE | 2023-01-01 04:41 | P.CNPUL ---
History of Present Illness Consult date: 01/01/23 Requesting physician: Chase Barrett Reason for consult: COPD Chief complaint: shortness of breath History of present illness: I am seeing this patient in new consultation today 01/01/2023 for acute COPD exacerbation. Patient is a 82-year-old white female past medical history significant for severe oxygen and steroid dependent COPD, atrial fibrillation anticoagulated on Eliquis, GERD, and is a previous tobacco smoker. Patient normally manages her COPD with a combination of Symbicort and albuterol inhalers. She does follow with Dr. Navas in the office. Her baseline FEV1 is 37% predicted. Patient presented to the emergency room yesterday evening complaining of progressively worsening shortness of breath over the last 2-3 days. This is accompanied by a nonproductive cough. Patient denies any fevers, chills, myalgias, chest pain, hemoptysis. Denies sick contacts. patient is currently sitting up in bed, on 4 L/m nasal cannula, in no acute distress. Chest x-ray shows no acute infiltrates or evidence of pneumonia. There were chronic COPD like changes. CBC and BMP on arrival were unremarkable. Negative for influenza, RSV, COVID-19. Troponin less than 0.012. NT proBNP low. Plasma lactic acid level I.9. Patient was empirically started on doxycycline. Remains afebrile. Also, started on a combination of bronchodilators, Symbicort inhaler, and IV Solu-Medrol. Patient appears hemodynamically stable. Review of Systems REVIEW OF SYSTEMS: CONSTITUTIONAL: Denies any recent significant weight loss or weight gain. EYES: Denies change in vision. EARS, NOSE, MOUTH, THROAT: Denies headaches, denies sore throat. CARDIOVASCULAR: Denies chest pain, palpitations or syncopal episodes. RESPIRATORY: see HPI GASTROINTESTINAL: Denies change in appetite, abdominal pain, nausea and vomiting, or diarrhea GENITOURINARY: Denies hematuria, denies infections. MUSKULOSKELETAL: Denies pain, denies swelling. INTEGUMENTARY: Denies rash, denies eczema. NEUROLOGICAL: Denies recent memory loss, no recent seizure activity. PSYCHIATRIC: Denies anxiety, denies depression. HEMATOLOGIC/LYMPHATIC: Denies anemia, denies enlarged lymph node Past Medical History Past Medical History: Atrial Fibrillation, COPD, GERD/Reflux Additional Past Medical History / Comment(s): oxygen @2l PRN mostly @HS, frequent "infections" in lungs over past year, COPD and prednisone 10 mg daily for the past months, she has not infected or vaccinated with COVID 19 History of Any Multi-Drug Resistant Organisms: None Reported Past Surgical History: Appendectomy, Orthopedic Surgery Additional Past Surgical History / Comment(s): CTS right wrist, cataracts removed Past Anesthesia/Blood Transfusion Reactions: No Reported Reaction Past Psychological History: No Psychological Hx Reported Smoking Status: Former smoker Past Alcohol Use History: None Reported Additional Past Alcohol Use History / Comment(s): quit smoking 2007, smoked since age of 19, 1ppd Past Drug Use History: None Reported - Past Family History Mother Family Medical History: Myocardial Infarction ([place]) Father Family Medical History: Cancer Medications and Allergies Home Medications Medication Instructions Recorded Confirmed Type Albuterol Nebulized [Ventolin 2.5 mg INHALATION RT-QID PRN 10/01/20 12/31/22 History Nebulized] Famotidine [Pepcid] 20 mg PO BID 10/01/20 12/31/22 History Loratadine [Claritin] 10 mg PO DAILY 10/01/20 12/31/22 History Albuterol Inhaler [Ventolin Hfa 2 puff INHALATION RT-QID PRN 08/22/21 12/31/22 History Inhaler] Budesonide/Formoterol Fumarate 2 puff INHALATION RT-BID 08/22/21 12/31/22 History [Symbicort 160-4.5 Mcg Inhaler] Magnesium Oxide [Mag-Ox] 400 mg PO HS 06/06/22 12/31/22 History Spironolactone 25 mg PO DAILY 06/06/22 12/31/22 History traMADol HCL 50 mg PO BID PRN 06/06/22 12/31/22 History Diltiazem Cd [Cardizem CD] 180 mg PO DAILY #30 cap 06/13/22 12/31/22 Rx Apixaban [Eliquis] 2.5 mg PO BID 12/31/22 12/31/22 History Ipratropium-Albuterol Nebulize 3 ml INHALATION RT-QID PRN 12/31/22 12/31/22 History [Duoneb 0.5 mg-3 mg/3 ml Soln] Rosuvastatin [Crestor] 10 mg PO DAILY 12/31/22 12/31/22 History Allergies Allergy/AdvReac Type Severity Reaction Status Date / Time amoxicillin Allergy Rash/Hives Verified 12/31/22 18:24 Penicillins Allergy Rash/Hives Verified 12/31/22 18:24 all over and shortness of breath Physical Exam Vitals: Vital Signs Temp Pulse Pulse Resp BP BP Pulse Ox 01/01/23 00:51 98.1 F 105 H 20 125/72 96 12/31/22 22:54 100 12/31/22 22:43 98 12/31/22 20:30 20 12/31/22 20:15 97.0 F L 100 22 115/73 94 L 12/31/22 20:07 96 12/31/22 19:57 91 L 12/31/22 19:54 99 12/31/22 17:55 91 24 156/77 96 12/31/22 17:26 86 12/31/22 17:12 90 12/31/22 16:58 87 12/31/22 16:43 95 12/31/22 15:59 28 H 12/31/22 15:40 98.4 F 96 24 132/82 87 L Intake and Output 12/31/22 12/31/22 01/01/23 14:59 22:59 06:59 Other: Weight 58.513 kg GENERAL EXAM: Alert, 82-year-old white female, comfortable in no apparent distress. HEAD: Normocephalic and atraumatic EYES: Normal reaction of pupils, equal size. NOSE: Clear with pink turbinates. THROAT: No erythema or exudates. NECK: No masses, no JVD. CHEST: No chest wall deformity. LUNGS: Equal air entry with expiratory wheezes heard throughout. On 4 L/m nasal cannula.. No conversational dyspnea or accessory muscle use.. CVS: S1 and S2 normal with no audible murmur, regular rhythm. No extra heart sounds ABDOMEN: No hepatosplenomegaly, active bowel sounds, no guarding or rigidity. SPINE: No scoliosis or deformity SKIN: No rashes CENTRAL NERVOUS SYSTEM: No focal deficits, tone is normal in all 4 extremities. EXTREMITIES: There is 1-2+ pitting bilateral pedal edema. No clubbing, or cyanosis. Peripheral pulses are intact. Results - Laboratory Findings CBC and BMP: 12/31/22 16:43 12/31/22 16:43 PT/INR, D-dimer PT 10.1 sec (9.0-12.0) 12/31/22 16:43 INR 0.9 (<1.2) 12/31/22 16:43 Abnormal lab findings: Abnormal Labs 12/31/22 16:43 Sodium 133 L Chloride 94 L BUN 20 H - Diagnostic Findings Chest x-ray: image reviewed Assessment and Plan Assessment: Acute on chronic hypoxemic respiratory failure, secondary to acute COPD exacerbation. Chest x-ray shows no acute infiltrates or evidence of pneumonia. Negative for influenza, RSV, COVID-19. History of severe oxygen and steroid dependent COPD with a baseline FEV1 37% of predicted. History of previous tobacco use History of atrial fibrillation, anticoagulated on Eliquis, currently in normal sinus rhythm Hyperlipidemia History of gastroesophageal reflux disease plan: Patient's medications, labs, chest x-ray were reviewed continue supplemental oxygen Continue combination of bronchodilators, Symbicort, IV Solu-Medrol Continue empiric antibiotics, and check procalcitonin level Eliquis was restarted Pepcid for GI prophylaxis we will continue to follow and make recommendations I have personally seen and examined the patient, performed the documentation and the assessment and plan as written. Number of minutes spent on the visit:20 Time with Patient: Greater than 30
[2023-01-01] MEDS: IPRATROPIUM-ALBUTEROL 3 ML NEB INHALATION PRN ×3 (06:05→23:44)
[2023-01-01] MEDS: IPRATROPIUM-ALBUTEROL 3 ML NEB INHALATION SCH ×4 (08:15→19:51)
[2023-01-01] MEDS: SYMBICORT 160-4.5 MCG INHALER INHALATION SCH ×2 (08:15→19:51)
[2023-01-01] MEDS: DILTIAZEM CD 180 MG CAP.ER.24H PO SCH (08:54)
[2023-01-01] MEDS: FAMOTIDINE 20 MG TAB PO SCH (08:55)
[2023-01-01] MEDS: DOXYCYCLINE 100 MG in SODIUM CHLORIDE 0.9% 100 ML IVPB SCH ×2 (08:55→20:46)
[2023-01-01] MEDS: APIXABAN 2.5 MG TABLET PO SCH ×2 (08:55→20:46)
[2023-01-01] MEDS: ATORVASTATIN 20 MG TAB PO SCH (08:55)
[2023-01-01] MEDS: LORATADINE 10 MG TAB PO SCH (08:55)
[2023-01-01] MEDS: SPIRONOLACTONE 25 MG TAB PO SCH (08:59)
[2023-01-01 09:00] LABS: Basophils # (A) 0 X 10*3/uL (0.00-0.10); Basophils % (A) 0 %; Eosinophils # (A) 0.01 X 10*3/uL (0.04-0.35); Eosinophils % (A) 0.3 %; HCT 35.8 % (37.2-46.3); HGB 11.7 d/dL (12.0-15.0); Lymphocytes # (A) 0.68 X 10*3/uL (0.90-5.00); Lymphocytes % (A) 18.9 %; MCH 29.6 pg (27.0-32.0); MCHC 32.7 d/dL (32.0-37.0); MCV 90.6 FL (80.0-97.0); Mean Platelet Volume 9.9 FL (9.5-12.2); Monocytes # (A) 0.03 X 10*3/uL (0.20-1.00); Monocytes % (A) 0.8 %; NRBC Per 100 WBC 0 X 10*3/uL (0.00-0.01); Neutrophils # (A) 2.86 X 10*3/uL (1.80-7.70); Neutrophils % (A) 79.7 %; Platelet Count 291 X 10*3/uL (140-440); RBC 3.95 X 10*6/uL (4.10-5.20); RDW 13.2 % (11.5-14.5); WBC 3.59 X 10*3/uL (4.50-10.00)
[2023-01-01 10:03] LABS: BUN/Creat Ratio 23.25 Ratio (12.00-20.00); Blood Urea Nitrogen 18.6 mg/dL (9.0-27.0); Calcium 9.7 mg/dL (8.7-10.3); Carbon Dioxide 23.5 mmol/L (21.6-31.8); Chloride 95 mmol/L (96-109); Glucose 146 mg/dL (70-110); Potassium 4.2 mmol/L (3.5-5.5); Sodium 135 mmol/L (135-145)
[2023-01-01] MEDS: MAGNESIUM OXIDE 400 MG TAB PO SCH (20:46)
[2023-01-02] MEDS: methylPREDNISolone SOD SUCCI 125 MG/2 ML VIAL IV SCH ×4 (03:36→20:22)
[2023-01-02] MEDS: IPRATROPIUM-ALBUTEROL 3 ML NEB INHALATION PRN ×3 (03:45→23:26)
[2023-01-02] MEDS: IPRATROPIUM-ALBUTEROL 3 ML NEB INHALATION SCH ×4 (09:54→20:21)
[2023-01-02] MEDS: SYMBICORT 160-4.5 MCG INHALER INHALATION SCH ×2 (09:55→20:21)
[2023-01-02] MEDS: DILTIAZEM CD 180 MG CAP.ER.24H PO SCH (11:43)
[2023-01-02] MEDS: FAMOTIDINE 20 MG TAB PO SCH (11:43)
[2023-01-02] MEDS: SPIRONOLACTONE 25 MG TAB PO SCH (11:43)
[2023-01-02] MEDS: APIXABAN 2.5 MG TABLET PO SCH ×2 (11:43→20:21)
[2023-01-02] MEDS: LORATADINE 10 MG TAB PO SCH (11:43)
[2023-01-02] MEDS: DOXYCYCLINE 100 MG in SODIUM CHLORIDE 0.9% 100 ML IVPB SCH ×2 (11:44→20:21)
[2023-01-02] MEDS: ATORVASTATIN 20 MG TAB PO SCH (11:45)
--- NOTE | 2023-01-02 13:36 | P.PN ---
Subjective Progress Note Date: 01/02/23 I am seeing this patient in new consultation today 01/01/2023 for acute COPD exacerbation. Patient is a 82-year-old white female past medical history significant for severe oxygen and steroid dependent COPD, atrial fibrillation anticoagulated on Eliquis, GERD, and is a previous tobacco smoker. Patient no rmally manages her COPD with a combination of Symbicort and albuterol inhalers. She does follow with Dr. Navas in the office. Her baseline FEV1 is 37% predicted. Patient presented to the emergency room yesterday evening complaining of progressively worsening shortness of breath over the last 2-3 days. This is accompanied by a nonproductive cough. Patient denies any fevers, chills, myalgias, chest pain, hemoptysis. Denies sick contacts. patient is currently sitting up in bed, on 4 L/m nasal cannula, in no acute distress. Chest x-ray shows no acute infiltrates or evidence of pneumonia. There were chronic COPD like changes. CBC and BMP on arrival were unremarkable. Negative for influenza, RSV, COVID-19. Troponin less than 0.012. NT proBNP low. Plasma lactic acid level I.9. Patient was empirically started on doxycycline. Remains afebrile. Also, started on a combination of bronchodilators, Symbicort inhaler, and IV Solu-Medrol. Patient appears hemodynamically stable. The patient is seen today 01/02/2023 in follow-up on the regular medical floor. She is currently resting comfortably in bed. Awake and alert in no acute distress. Maintaining O2 saturations in the 90s on 3 L/m per nasal cannula. She is continued on DuoNeb inhalations, Symbicort, Solu-Medrol. Empiric antibiotics in the form of doxycycline. Anticoagulated with Eliquis. Objective - Vital Signs Vital signs: Vital Signs Temp 97.9 F 01/02/23 06:22 Pulse 84 01/02/23 13:01 Resp 18 01/02/23 06:22 BP 109/66 01/02/23 06:22 Pulse Ox 97 01/02/23 09:55 FiO2 Intake & Output 01/01/23 01/02/23 01/02/23 18:59 06:59 18:59 Other: Voiding Method Toilet # Voids 1 2 1 # Bowel Movements 1 - Exam GENERAL EXAM: Alert, pleasant 82-year-old female, on 3 L nasal cannula, comfortable in no apparent distress. HEAD: Normocephalic. EYES: Normal reaction of pupils, equal size. NOSE: Clear with pink turbinates. THROAT: No erythema or exudates. NECK: No masses, no JVD. CHEST: No chest wall deformity. LUNGS: Equal air entry with faint end expiratory wheeze, diminished. CVS: S1 and S2 normal with no audible murmur, regular rhythm. ABDOMEN: No hepatosplenomegaly, normal bowel sounds, no guarding or rigidity. SPINE: No scoliosis or deformity SKIN: No rashes CENTRAL NERVOUS SYSTEM: No focal deficits, tone is normal in all 4 extremities. EXTREMITIES: There is no peripheral edema. No clubbing, no cyanosis. Peripheral pulses are intact. - Labs CBC & Chem 7: 01/01/23 06:27 01/01/23 06:27 Labs: Microbiology - Last 24 Hours (Table) 01/01/23 00:43 Blood Culture - Preliminary Blood Assessment and Plan Assessment: Acute on chronic hypoxemic respiratory failure, secondary to acute COPD exacerbation. Chest x-ray shows no acute infiltrates or evidence of pneumonia. Negative for influenza, RSV, COVID-19. History of severe oxygen and steroid dependent COPD with a baseline FEV1 37% of predicted. History of previous tobacco use History of atrial fibrillation, anticoagulated on Eliquis, currently in normal sinus rhythm Hyperlipidemia History of gastroesophageal reflux disease Plan: The patient was seen and evaluated Stable and on 3 L nasal cannula Continue bronchodilators, steroids Continue empiric antibiotics Probable discharge in the a.m. We will continue to follow I have personally seen and examined the patient, performed the documentation and the assessment and plan as written. Number of minutes spent on the visit: 10.
[2023-01-02] MEDS: MAGNESIUM OXIDE 400 MG TAB PO SCH (20:21)
--- NOTE | 2023-01-02 21:01 | PN ---
PROGRESS NOTE DATE OF SERVICE: 01/02/2023 SUBJECTIVE: This 82-year-old woman was admitted with COPD acute exacerbation, , shortness of breath, the patient is on bronchodilators. No chest pain, no palpitations, no fever. OBJECTIVE: VITAL SIGNS: Pulse is 103, blood pressure 130/73, respirations 18. CHEST: Few scattered rhonchi. No crackles. ABDOMEN: Soft. NERVOUS SYSTEM: No focal deficits. LABORATORY DATA: Reviewed. ASSESSMENT: 1. Chronic obstructive pulmonary disease acute exacerbation with acute hypoxic respiratory failure. 2. Hypertension. 3. Atrial fibrillation. 4. Multiple medical issues. RECOMMENDATIONS AND DISCUSSION: I recommend to continue current management, continue symptomatic treatment, continue with bronchodilators, empiric antibiotics. Closely follow with Pulmonary, IV steroids. Guarded prognosis. Further recommendations to follow. MMODL / IJN: [id number] / MTDD
[2023-01-03] MEDS: IPRATROPIUM-ALBUTEROL 3 ML NEB INHALATION PRN ×3 (01:31→22:39)
[2023-01-03] MEDS: methylPREDNISolone SOD SUCCI 125 MG/2 ML VIAL IV SCH ×4 (02:18→21:41)
[2023-01-03 08:25] LABS: African American GFR (CKD) >90 (>60 ml/min/1.73 sqM); Anion Gap 3 mmol/L; Blood Urea Nitrogen 26 mg/dL (7-17); Calcium 8.9 mg/dL (8.4-10.2); Carbon Dioxide 31 mmol/L (22-30); Chloride 99 mmol/L (98-107); Glucose 128 mg/dL (74-99); Non-African American GFR(CKD) 81 (>60 ml/min/1.73 sqM); Potassium 3.9 mmol/L (3.5-5.1); Sodium 133 mmol/L (137-145)
[2023-01-03 08:40] LABS: Basophils % (A) 0 %; Eosinophils % (A) 0 %; HCT 32.9 % (34.0-46.0); HGB 11.5 gm/dL (11.4-16.0); Lymphocytes # (A) 0.4 k/uL (1.0-4.8); Lymphocytes % (A) 7 %; MCH 31.4 pg (25.0-35.0); MCHC 34.9 g/dL (31.0-37.0); MCV 89.9 fL (80.0-100.0); Mean Platelet Volume 8.6; Monocytes # (A) 0.3 k/uL (0-1.0); Monocytes % (A) 5 %; Neutrophils # (A) 5.8 k/uL (1.3-7.7); Neutrophils % (A) 88 %; Platelet Count 265 k/uL (150-450); RBC 3.66 m/uL (3.80-5.40); RDW 13.8 % (11.5-15.5); WBC 6.7 k/uL (3.8-10.6)
[2023-01-03] MEDS: SYMBICORT 160-4.5 MCG INHALER INHALATION SCH (08:47)
[2023-01-03] MEDS: IPRATROPIUM-ALBUTEROL 3 ML NEB INHALATION SCH ×4 (08:47→20:10)
[2023-01-03] MEDS: LORATADINE 10 MG TAB PO SCH (10:25)
[2023-01-03] MEDS: APIXABAN 2.5 MG TABLET PO SCH ×2 (10:26→21:40)
[2023-01-03] MEDS: FAMOTIDINE 20 MG TAB PO SCH (10:26)
[2023-01-03] MEDS: ATORVASTATIN 20 MG TAB PO SCH (10:27)
[2023-01-03] MEDS: SPIRONOLACTONE 25 MG TAB PO SCH (10:27)
[2023-01-03] MEDS: DILTIAZEM CD 180 MG CAP.ER.24H PO SCH (10:27)
[2023-01-03] MEDS: DOXYCYCLINE 100 MG in SODIUM CHLORIDE 0.9% 100 ML IVPB SCH ×2 (10:41→21:40)
--- NOTE | 2023-01-03 12:11 | XR ---
EXAMINATION TYPE: XR chest 1V portable DATE OF EXAM: 01/03/2023 COMPARISON: 12/31/2022 INDICATION: Short of breath, COPD TECHNIQUE: Single frontal view of the chest is obtained. FINDINGS: The heart size is normal. The pulmonary vasculature is normal. The lungs are clear. Emphysematous changes are present. IMPRESSION: 1. No acute pulmonary process. 2. COPD.
--- NOTE | 2023-01-03 12:33 | P.PN ---
Subjective Progress Note Date: 01/03/23 I am seeing this patient in new consultation today 01/01/2023 for acute COPD exacerbation. Patient is a 82-year-old white female past medical history significant for severe oxygen and steroid dependent COPD, atrial fibrillation anticoagulated on Eliquis, GERD, and is a previous tobacco smoker. Patient no rmally manages her COPD with a combination of Symbicort and albuterol inhalers. She does follow with Dr. Navas in the office. Her baseline FEV1 is 37% predicted. Patient presented to the emergency room yesterday evening complaining of progressively worsening shortness of breath over the last 2-3 days. This is accompanied by a nonproductive cough. Patient denies any fevers, chills, myalgias, chest pain, hemoptysis. Denies sick contacts. patient is currently sitting up in bed, on 4 L/m nasal cannula, in no acute distress. Chest x-ray shows no acute infiltrates or evidence of pneumonia. There were chronic COPD like changes. CBC and BMP on arrival were unremarkable. Negative for influenza, RSV, COVID-19. Troponin less than 0.012. NT proBNP low. Plasma lactic acid level I.9. Patient was empirically started on doxycycline. Remains afebrile. Also, started on a combination of bronchodilators, Symbicort inhaler, and IV Solu-Medrol. Patient appears hemodynamically stable. The patient is seen today 01/02/2023 in follow-up on the regular medical floor. She is currently resting comfortably in bed. Awake and alert in no acute distress. Maintaining O2 saturations in the 90s on 3 L/m per nasal cannula. She is continued on DuoNeb inhalations, Symbicort, Solu-Medrol. Empiric antibiotics in the form of doxycycline. Anticoagulated with Eliquis. The patient is seen today 01/03/2023 in follow-up on the regular medical floor. She is awake and alert in no acute distress. She is still somewhat bronchospastic and wheezy. Not quite back to her baseline. Chest x-ray continues to show no acute pulmonary process. Evidence of COPD. White count 6.7. Hemoglobin 11.5. Platelet count 265. Sodium 133. Potassium 3.9. Bicarb 31. BUN 36. Creatinine 0.68. She is continued on DuoNeb inhalations, Symbicort, Solu-Medrol. Empiric antibiotics in the form of doxycycline. Anticoagulated with Eliquis. Objective - Vital Signs Vital signs: Vital Signs Temp 98.1 F 01/03/23 06:50 Pulse 88 01/03/23 12:23 Resp 18 01/03/23 06:50 BP 112/59 01/03/23 06:50 Pulse Ox 94 L 01/03/23 06:50 FiO2 Intake & Output 01/02/23 01/03/23 01/03/23 18:59 06:59 18:59 Intake Total 100 Balance 100 Intake: Intake, IV Titration 100 Amount Doxycycline 100 mg In 100 Sodium Chloride 0.9% 100 ml @ 100 mls/hr IVPB Q12HR [facility] Rx#:[id number] Other: Voiding Method Toilet # Voids 3 2 - Exam GENERAL EXAM: Alert, 82-year-old female, on 3 L nasal cannula, fairly comfortable in no apparent distress. HEAD: Normocephalic. EYES: Normal reaction of pupils, equal size. NOSE: Clear with pink turbinates. THROAT: No erythema or exudates. NECK: No masses, no JVD. CHEST: No chest wall deformity. LUNGS: Equal air entry with expiratory wheeze, diminished. CVS: S1 and S2 normal with no audible murmur, regular rhythm. ABDOMEN: No hepatosplenomegaly, normal bowel sounds, no guarding or rigidity. SPINE: No scoliosis or deformity SKIN: No rashes CENTRAL NERVOUS SYSTEM: No focal deficits, tone is normal in all 4 extremities. EXTREMITIES: There is no peripheral edema. No clubbing, no cyanosis. Peripheral pulses are intact. - Labs CBC & Chem 7: 01/03/23 06:54 01/03/23 06:54 Labs: Abnormal Lab Results - Last 24 Hours (Table) 01/03/23 01/03/23 Range/Units 06:54 06:54 RBC 3.66 L (3.80-5.40) m/uL Hct 32.9 L (34.0-46.0) % Lymphocytes # 0.4 L (1.0-4.8) k/uL Sodium 133 L (137-145) mmol/L Carbon Dioxide 31 H (22-30) mmol/L BUN 26 H (7-17) mg/dL Glucose 128 H (74-99) mg/dL Microbiology - Last 24 Hours (Table) 01/01/23 00:43 Blood Culture - Preliminary Blood Assessment and Plan Assessment: Acute on chronic hypoxemic respiratory failure, secondary to acute COPD exacerbation. Chest x-rays show no acute infiltrates or evidence of pneumonia. Negative for influenza, RSV, COVID-19. History of severe oxygen and steroid dependent COPD with a baseline FEV1 37% of predicted. History of previous tobacco use History of atrial fibrillation, anticoagulated on Eliquis, currently in normal sinus rhythm Hyperlipidemia History of gastroesophageal reflux disease Plan: The patient was seen and evaluated Chest x-ray, labs and medications reviewed Not quite back to her baseline Discontinue Symbicort, add Pulmicort and Perforomist inhalations Continue steroids and empiric antibiotics Titrate the FiO2 as tolerated We will continue to follow I have personally seen and examined the patient, performed the documentation and the assessment and plan as written. Number of minutes spent on the visit: 10.
--- NOTE | 2023-01-03 12:52 | PN ---
PROGRESS NOTE DATE OF SERVICE: 01/03/2023 HISTORY OF PRESENT ILLNESS: This is an 82-year-old woman, who was admitted with COPD exacerbation, also had acute hypoxic respiratory failure. The patient is extremely short of breath today. The patient is closely monitored. The patient is on empiric antibiotics. PAST MEDICAL HISTORY: Reviewed. REVIEW OF SYSTEMS: Negative except as mentioned earlier. CURRENT MEDICATIONS: Include doxycycline IV, rest of medications noted. PHYSICAL EXAMINATION: VITAL SIGNS: Pulse is 104, blood pressure 137/79, respiratory rate 18. HEENT: Conjunctivae normal NECK: No JVD. CARDIOVASCULAR: S1, S2. RESPIRATORY: Bilateral scattered rhonchi and end expiratory wheezing also present. ABDOMEN: Soft. NERVOUS SYSTEM: No focal deficits. LABORATORY DATA: Reviewed. ASSESSMENT: 1. Chronic obstructive pulmonary disease, acute exacerbation with acute bronchitis with acute hypoxic respiratory failure with slow improvement. 2. Hypertension. 3. Atrial fibrillation. 4. Multiple medical issues. RECOMMENDATIONS: Recommended to continue current medications. Continue symptomatic treatment. If the patient is not improving at this time, I would recommend serum procalcitonin, sputum culture, repeat chest x-ray, add Rocephin to the current regimen. Obtain cultures. Continue to optimize the bronchodilator treatment. Closely follow with Pulmonary. Prognosis guarded because of multiple complex medical issues. Further recommendations to follow. See orders for details. MMODL / IJN: [id number] /
--- NOTE | 2023-01-03 16:17 | CDI ---
Documentation Clarification Form Date: 01/03/2023 04:08:06 PM From: Avani Hobbs RN, CCDS Admit Date: 12/31/2022 06:02:00 PM Patient Name: Madonna Haddad Visit Number: [id number] Discharge Date: ATTENTION: The Clinical Documentation Specialists (CDI) and [facility] Coding Staff appreciate your assistance in clarifying documentation. Please respond to the clarification below the line at the bottom and electronically sign. The CDI & [facility] Coding staff will review the response and follow-up if needed. Please note: Queries are made part of the Legal Health Record. If you have any questions, please contact the author of this message via ITS. Dr. Shilo Mehta Atrial Fibrillation is documented in the past medical history, H/P and subsequent progress notes. Additional clarification regarding the type of atrial fibrillation is requested. History/Risk Factors: Atrial Fibrillation, COPD, GERD/Reflux Clinical Indicators: 82-year-old female with known history of atrial fibrillation with ongoing treatment with Eliquis. 12/31 VS: 132/82 96 24 87% 3/L NC 12/31 EKG/telemetry: Sinus Rhythm 93 bpm Treatment: Embedded Systems Software Engineer/Telemetry Eliquis 2.5 MG PO BID 12/31-01/03 Cardizem CD 180 mg PO Daily 01/01-01/03 Please clarify the type of atrial fibrillation, if known: [ ] Chronic [ ] Permanent [ ] Paroxysmal [ ] Persistent [ ] Other, please specify [ ] Unable to determine (Template Last Revised: August 2020) Paroxysmal MTDD
[2023-01-03 19:14] LABS: Appearance,Urine Clear (Clear); Bilirubin,Urine Negative (Negative); Blood,Urine Negative (Negative); Color,Urine Light Yellow; Glucose,Urine (UA) Negative (Negative); Ketones,Urine Negative (Negative); Leukocyte Esterase,Urine Negative (Negative); Mucus,Urine Rare /hpf; Nitrite,Urine Negative (Negative); PH, Urine 7.5 (5.0-8.0); Protein,Urine 1+ (Negative); RBC,Urine 1 /hpf (0-5); Specific Gravity,Urine 1.013 (1.001-1.035); Squamous Epithelial Cell,Urine <1 /hpf (0-4); Urobilinogen,Urine <2.0 mg/dL (<2.0); WBC,Urine 3 /hpf (0-5)
[2023-01-03] MEDS: FORMOTEROL FUMARATE 20 MCG/2 ML NEBU INHALATION SCH (20:10)
[2023-01-03] MEDS: BUDESONIDE 1 MG/2 ML NEBU INHALATION SCH (20:10)
[2023-01-03] MEDS: MAGNESIUM OXIDE 400 MG TAB PO SCH (21:40)
--- NOTE | 2023-01-03 21:40 | P.PN ---
Subjective Progress Note Date: 01/01/23 82-year-old female with a past medical history including COPD on home oxygen presents emergency department for shortness of breath. The patient stated over the last 3 days she had worsening and persistent shortness of breath and could not get a full breath. The patient stated that she used her nebulizer at home without any relief so she came to the emergency department. The patient was unsure but does trigger her COPD but did state that the humidity and weather change does make it worse. The patient was otherwise resting in bed comfortably without any further stress. The patient also stated that she had bilateral lower extremity swelling that was worse over the last 1 day. The patient denied any lightheadedness, chest pain or nausea or vomiting. EKG Findings:: showing a rate of 93, DE interval 145, QR baptist of 85 and QTC of 4:15. This EKG showed a normal sinus rhythm with no ST segment elevation or depression noted. Chest x-ray doesn't reveal any acute cardiopulmonary process; COPD changes are seen Blood work completed today reveals a WBC of 6.5, hemoglobin of 12.4 and platelet count of 2.8, sodium 133, potassium 4.3, BUN/creatinine of 20/0.74, blood glucose of 99, troponin of less than 0.012 Objective - Vital Signs Vital signs: Vital Signs Temp 98.2 F 01/01/23 07:34 Pulse 104 H 01/01/23 14:36 Resp 21 01/01/23 08:00 BP 117/77 01/01/23 07:34 Pulse Ox 97 01/01/23 08:15 FiO2 Intake & Output 12/31/22 01/01/23 01/01/23 18:59 06:59 18:59 Intake Total 480 Balance 480 Weight 58.513 kg 58.513 kg Intake: Oral 480 Other: # Voids 1 - Exam General appearance: alert, in no apparent distress Head exam: Present: atraumatic, normocephalic, normal inspection Eye exam: Present: normal appearance, PERRL Pupils: Present: normal accommodation ENT exam: Present: normal exam, normal oropharynx, mucous membranes moist Neck exam: Present: normal inspection, full ROM Respiratory exam: Present: wheezes, decreased breath sounds Cardiovascular Exam: Present: regular rate, normal rhythm, normal heart sounds GI/Abdominal exam: Present: soft, normal bowel sounds Extremities exam: Present: normal inspection, full ROM Neurological exam: Present: alert, oriented X3, CN II-XII intact Skin exam: Present: warm, dry - Labs CBC & Chem 7: 01/03/23 06:54 01/03/23 06:54 Labs: Abnormal Lab Results - Last 24 Hours (Table) 12/31/22 01/01/23 01/01/23 Range/Units 16:43 06:27 06:27 WBC 3.59 L (4.50-10.00) X 10*3/uL RBC 3.95 L (4.10-5.20) X 10*6/uL Hgb 11.7 L (12.0-15.0) d/dL Hct 35.8 L (37.2-46.3) % Lymphocytes # 0.68 L (0.90-5.00) X 10*3/uL Monocytes # 0.03 L (0.20-1.00) X 10*3/uL Eosinophils # 0.01 L (0.04-0.35) X 10*3/uL Sodium 133 L (137-145) mmol/L Chloride 94 L 95 L (98-107) mmol/L Anion Gap 16.50 H (4.00-12.00) mmol/L BUN 20 H (7-17) mg/dL BUN/Creatinine Ratio 23.25 H (12.00-20.00) Ratio Glucose 146 H (70-110) mg/dL Assessment and Plan Assessment: 1. Acute hypoxic respiratory failure; related to COPD exacerbation - Patient is placed on O2 at 3 L per nasal cannula; plan to titrate as able keeping O2 saturation greater than 92% 2. COPD exacerbation; patient is placed on IV steroids; methylprednisolone 60 mg IV every 6 hours; DuoNeb nebulizer treatments 4 times a day and when necessary; start patient on doxycycline 100 mg twice a day - Consult pulmonary for further recommendations 3. Hypertension; Cardizem CD 180 mg daily 4. Atrial fibrillation; patient is rate controlled on diltiazem 180 mg daily; anticoagulated with Ahlquist 2.5 mg twice a day 5. Hyperlipidemia; Crestor 10 mg daily 6. Hypomagnesemia; magnesium 400 mg by mouth daily at bedtime 7. Seasonal ALLERGIES; loratadine 10 mg daily DVT prophylaxis; SCDs/systemic anticoagulation CODE STATUS; full code
[2023-01-03] MEDS: ALPRAZolam 0.25 MG TAB PO PRN (22:16)
[2023-01-04] MEDS: methylPREDNISolone SOD SUCCI 125 MG/2 ML VIAL IV SCH ×2 (02:14→08:36)
[2023-01-04] MEDS: IPRATROPIUM-ALBUTEROL 3 ML NEB INHALATION PRN ×2 (04:55→23:49)
[2023-01-04] MEDS: IPRATROPIUM-ALBUTEROL 3 ML NEB INHALATION SCH ×4 (07:53→20:53)
[2023-01-04] MEDS: BUDESONIDE 1 MG/2 ML NEBU INHALATION SCH ×2 (07:53→20:53)
[2023-01-04] MEDS: FORMOTEROL FUMARATE 20 MCG/2 ML NEBU INHALATION SCH ×2 (07:53→20:53)
[2023-01-04] MEDS: LORATADINE 10 MG TAB PO SCH (08:35)
[2023-01-04] MEDS: FAMOTIDINE 20 MG TAB PO SCH (08:35)
[2023-01-04] MEDS: ATORVASTATIN 20 MG TAB PO SCH (08:35)
[2023-01-04] MEDS: SPIRONOLACTONE 25 MG TAB PO SCH (08:35)
[2023-01-04] MEDS: APIXABAN 2.5 MG TABLET PO SCH ×2 (08:35→21:20)
[2023-01-04] MEDS: DILTIAZEM CD 180 MG CAP.ER.24H PO SCH (08:36)
[2023-01-04] MEDS: DOXYCYCLINE 100 MG in SODIUM CHLORIDE 0.9% 100 ML IVPB SCH (08:47)
[2023-01-04] MEDS: predniSONE 20 MG TAB PO SCH (10:49)
[2023-01-04 11:21] LABS: Basophils # (A) 0.01 X 10*3/uL (0.00-0.10); Basophils % (A) 0.2 %; Eosinophils # (A) 0 X 10*3/uL (0.04-0.35); Eosinophils % (A) 0 %; HCT 34.5 % (37.2-46.3); HGB 11.2 d/dL (12.0-15.0); Lymphocytes # (A) 0.47 X 10*3/uL (0.90-5.00); Lymphocytes % (A) 7.8 %; MCH 29.9 pg (27.0-32.0); MCHC 32.5 d/dL (32.0-37.0); MCV 92.2 FL (80.0-97.0); Mean Platelet Volume 10.1 FL (9.5-12.2); Monocytes # (A) 0.32 X 10*3/uL (0.20-1.00); Monocytes % (A) 5.3 %; NRBC Per 100 WBC 0 X 10*3/uL (0.00-0.01); Neutrophils # (A) 5.22 X 10*3/uL (1.80-7.70); Platelet Count 275 X 10*3/uL (140-440); RBC 3.74 X 10*6/uL (4.10-5.20); RDW 13.4 % (11.5-14.5); WBC 6.06 X 10*3/uL (4.50-10.00)
[2023-01-04 11:26] LABS: Blood Urea Nitrogen 16.8 mg/dL (9.0-27.0); Calcium 9.1 mg/dL (8.7-10.3); Carbon Dioxide 29.2 mmol/L (21.6-31.8); Chloride 101 mmol/L (96-109); Glucose 146 mg/dL (70-110); Potassium 3.2 mmol/L (3.5-5.5); Sodium 141 mmol/L (135-145)
[2023-01-04] MEDS ORDERED: Potassium Replacement Protocol 1 EACH MISC MISCELLANE PRN (11:51)
[2023-01-04] MEDS: POTASSIUM CHLORIDE ER 20 MEQ TAB.ER PO SCH ×4 (11:58→15:25)
--- NOTE | 2023-01-04 12:20 | XR ---
EXAMINATION TYPE: XR chest 1V portable DATE OF EXAM: 01/04/2023 Comparison: 01/03/2023 Clinical History: 82-year-old female short of breath Findings: Heart normal size. Mild atherosclerotic arch calcifications. Hyperinflation. Mild patchy bibasilar de nsities remain unchanged. No pleural effusion. Impression: Similar COPD with some patchy bibasilar densities, correlate to exclude mild interstitial infiltrates .
--- NOTE | 2023-01-04 12:46 | P.PN ---
Subjective Progress Note Date: 01/04/23 I am seeing this patient in new consultation today 01/01/2023 for acute COPD exacerbation. Patient is a 82-year-old white female past medical history significant for severe oxygen and steroid dependent COPD, atrial fibrillation anticoagulated on Eliquis, GERD, and is a previous tobacco smoker. Patient no rmally manages her COPD with a combination of Symbicort and albuterol inhalers. She does follow with Dr. Navas in the office. Her baseline FEV1 is 37% predicted. Patient presented to the emergency room yesterday evening complaining of progressively worsening shortness of breath over the last 2-3 days. This is accompanied by a nonproductive cough. Patient denies any fevers, chills, myalgias, chest pain, hemoptysis. Denies sick contacts. patient is currently sitting up in bed, on 4 L/m nasal cannula, in no acute distress. Chest x-ray shows no acute infiltrates or evidence of pneumonia. There were chronic COPD like changes. CBC and BMP on arrival were unremarkable. Negative for influenza, RSV, COVID-19. Troponin less than 0.012. NT proBNP low. Plasma lactic acid level I.9. Patient was empirically started on doxycycline. Remains afebrile. Also, started on a combination of bronchodilators, Symbicort inhaler, and IV Solu-Medrol. Patient appears hemodynamically stable. The patient is seen today 01/02/2023 in follow-up on the regular medical floor. She is currently resting comfortably in bed. Awake and alert in no acute distress. Maintaining O2 saturations in the 90s on 3 L/m per nasal cannula. She is continued on DuoNeb inhalations, Symbicort, Solu-Medrol. Empiric antibiotics in the form of doxycycline. Anticoagulated with Eliquis. The patient is seen today 01/03/2023 in follow-up on the regular medical floor. She is awake and alert in no acute distress. She is still somewhat bronchospastic and wheezy. Not quite back to her baseline. Chest x-ray continues to show no acute pulmonary process. Evidence of COPD. White count 6.7. Hemoglobin 11.5. Platelet count 265. Sodium 133. Potassium 3.9. Bicarb 31. BUN 36. Creatinine 0.68. She is continued on DuoNeb inhalations, Symbicort, Solu-Medrol. Empiric antibiotics in the form of doxycycline. Anticoagulated with Eliquis. The patient is seen today 01/04/2023 in follow-up on the regular medical floor. She is currently resting in bed. Awake and alert in no acute distress. Proved but not quite back to her baseline. Maintaining O2 saturations in the 90s on 2 L/m per nasal cannula. Afebrile. Slightly tachycardic. Chest x-ray reveals COPD with some patchy basilar densities. Blood and sputum cultures reveal no growth. White count 0. Hemoglobin 11.2. Platelets 275. Sodium 141. Potassium 3.2. Bicarb 29. BUN 17. Creatinine 0.6. Glucose 146. She remains on DuoNeb inhalations, Pulmicort and reports inhalations, prednisone taper. Anticoagulated with Eliquis. Objective - Vital Signs Vital signs: Vital Signs Temp 98.0 F 01/04/23 06:51 Pulse 95 01/04/23 12:29 Resp 18 01/04/23 06:51 BP 131/78 01/04/23 06:51 Pulse Ox 97 01/04/23 07:53 FiO2 Intake & Output 01/03/23 01/04/23 01/04/23 18:59 06:59 18:59 Intake Total 100 Balance 100 Intake: Intake, IV Titration 100 Amount Doxycycline 100 mg In 100 Sodium Chloride 0.9% 100 ml @ 100 mls/hr IVPB Q12HR [facility] Rx#:[id number] Other: Voiding Method Bedside Commode # Voids 3 1 - Exam GENERAL EXAM: Alert, pleasant, weak, 82-year-old female, on L nasal cannula, fairly comfortable in no apparent distress. HEAD: Normocephalic. EYES: Normal reaction of pupils, equal size. NOSE: Clear with pink turbinates. THROAT: No erythema or exudates. NECK: No masses, no JVD. CHEST: No chest wall deformity. LUNGS: Equal air entry with expiratory wheeze, diminished. CVS: S1 and S2 normal with no audible murmur, regular rhythm. ABDOMEN: No hepatosplenomegaly, normal bowel sounds, no guarding or rigidity. SPINE: No scoliosis or deformity SKIN: No rashes CENTRAL NERVOUS SYSTEM: No focal deficits, tone is normal in all 4 extremities. EXTREMITIES: There is no peripheral edema. No clubbing, no cyanosis. Peripheral pulses are intact. - Labs CBC & Chem 7: 01/04/23 06:55 01/04/23 06:55 Labs: Abnormal Lab Results - Last 24 Hours (Table) 01/03/23 01/04/23 01/04/23 Range/Units 17:25 06:55 06:55 RBC 3.74 L (4.10-5.20) X 10*6/uL Hgb 11.2 L (12.0-15.0) d/dL Hct 34.5 L (37.2-46.3) % Lymphocytes # 0.47 L (0.90-5.00) X 10*3/uL Eosinophils # 0 L (0.04-0.35) X 10*3/uL Potassium 3.2 L (3.5-5.5) mmol/L BUN/Creatinine Ratio 28.00 H (12.00-20.00) Ratio Glucose 146 H (70-110) mg/dL Urine Protein 1+ H (Negative) Urine Mucus Rare H (None) /hpf Microbiology - Last 24 Hours (Table) 01/03/23 21:00 Gram Stain - Preliminary Sputum 01/01/23 00:43 Blood Culture - Preliminary Blood Assessment and Plan Assessment: Acute on chronic hypoxemic respiratory failure, secondary to acute COPD exacerbation. Chest x-rays show no acute infiltrates or evidence of pneumonia. Negative for influenza, RSV, COVID-19. History of severe oxygen and steroid dependent COPD with a baseline FEV1 37% of predicted. History of previous tobacco use History of atrial fibrillation, anticoagulated on Eliquis, currently in normal sinus rhythm Hyperlipidemia History of gastroesophageal reflux disease Plan: The patient was seen and evaluated Chest x-ray, labs and medications reviewed Not quite back to her baseline Current treatment plan Titrate the FiO2 as tolerated Probable discharge in the a.m. We will continue to follow I have personally seen and examined the patient, performed the documentation and the assessment and plan as written. Number of minutes spent on the visit: 10.
--- NOTE | 2023-01-04 15:08 | P.PN ---
Subjective Progress Note Date: 01/04/23 This is an 82-year-old female who was recently admitted with increasing shortness of breath with COPD exacerbation. Patient also with hypoxic respiratory failure requiring more oxygen than normal. Patient chronically wears 2 L via nasal cannula mostly at night although has been wearing it continuously as patient feels dyspneic with frequent coughing spells especially dyspnea with exertion. Patient is continued on steroids and breathing inhalational treatments along with DuoNeb's and pulmonary following. Transitioning to oral prednisone and empiric antibiotics have been discontinued. Patient is afebrile with no reported chest pain or palpitations. Patient is tolerating diet and continues to eat poorly and reports has not eaten much. Will continue with supplements and encouraged oral intake. Review of systems: Constitutional: No reports of fatigue, fever, or chills Cardiovascular: No reports of chest pain or palpitations Respiratory: Reports of Continued of shortness of breath with bronchospasms and continued cough GI: No reports of nausea, no reports of vomiting, no diarrhea : No reports of dysuria or retention Neurovascular: reports of generalized weakness All medications have been reviewed PHYSICAL EXAMINATION: GENERAL: The patient is alert and oriented x4, Well developed, thin built, elderly appearing HEENT: Pupils are round and equally reacting to light. EOMI. no scleral icterus. No conjunctival pallor. Normocephalic, atraumatic. No pharyngeal erythema. No t hyromegaly. CARDIOVASCULAR: S1 and S2 muffled PULMONARY: diminished breath sounds bilaterally with continued frequent coughing spells with bronchospasms with faint expiratory wheezing and coarse rhonchi noted. ABDOMEN: soft. Nontender on exam. non-distended, normoactive bowel sounds. No palpable organomegaly. MUSCULOSKELETAL: No joint swelling or deformity. EXTREMITIES: No cyanosis, clubbing, or pedal edema. NEUROLOGICAL: Gross neurological examination did not reveal any focal deficits. Diffuse weakness SKIN: No rashes. Assessment: Chronic obstructive pulmonary disease acute exacerbation with acute bronchitis Acute on chronic hypoxic respiratory failure, secondary to above Hypertension Hypokalemia GERD Former smoker History of paroxysmal atrial fibrillation, Currently rate controlled GI prophylaxis DVT prophylaxis Full code Plan: Patient is continued on breathing inhalational treatments along with oral steroids that have been transition today and patient was started on empiric antibiotics although discontinued per pulmonary Pulmonary following recommend monitoring overnight with possible discharge planning in the next 24 hours Patient chronically wears oxygen outpatient and maintaining 97% on 3 L via nasal cannula Potassium was 3.2 today and will replace per protocol will follow-up on repeat labs Due to multiple complex medical issues, prognosis is guarded The impression and plan of care has been dictated by Heather Rivera, nurse practitioner as directed. Dr. Tyson MD I have performed a history and examination and MDM of this patient, discussed the same with the dictator, and agree with the dictator's assessment and plan as written ,documented as a scribe. Based on total visit time, I have performed more than 50% of the visit. Any additional findings or plans will be noted. Objective - Vital Signs Vital signs: Vital Signs Temp 97.6 F 01/04/23 13:06 Pulse 91 01/04/23 13:06 Resp 18 01/04/23 13:06 BP 134/84 01/04/23 13:06 Pulse Ox 97 01/04/23 13:06 FiO2 Intake & Output 01/03/23 01/04/23 01/04/23 18:59 06:59 18:59 Intake Total 100 Balance 100 Intake: Intake, IV Titration 100 Amount Doxycycline 100 mg In 100 Sodium Chloride 0.9% 100 ml @ 100 mls/hr IVPB Q12HR [facility] Rx#:[id number] Other: Voiding Method Bedside Commode # Voids 3 1 - Labs CBC & Chem 7: 01/04/23 06:55 01/04/23 06:55 Labs: Abnormal Lab Results - Last 24 Hours (Table) 01/03/23 01/04/23 01/04/23 Range/Units 17:25 06:55 06:55 RBC 3.74 L (4.10-5.20) X 10*6/uL Hgb 11.2 L (12.0-15.0) d/dL Hct 34.5 L (37.2-46.3) % Lymphocytes # 0.47 L (0.90-5.00) X 10*3/uL Eosinophils # 0 L (0.04-0.35) X 10*3/uL Potassium 3.2 L (3.5-5.5) mmol/L BUN/Creatinine Ratio 28.00 H (12.00-20.00) Ratio Glucose 146 H (70-110) mg/dL Urine Protein 1+ H (Negative) Urine Mucus Rare H (None) /hpf Microbiology - Last 24 Hours (Table) 01/01/23 00:43 Blood Culture - Preliminary Blood 01/03/23 21:00 Gram Stain - Preliminary Sputum
[2023-01-04 20:33] VITALS: RESP 22
[2023-01-04] MEDS: MAGNESIUM OXIDE 400 MG TAB PO SCH (21:20)
[2023-01-04] MEDS: ALPRAZolam 0.25 MG TAB PO PRN (23:14)
[2023-01-05] MEDS: IPRATROPIUM-ALBUTEROL 3 ML NEB INHALATION PRN (04:32)
[2023-01-05 07:53] VITALS: BP 100/68; TEMP 97.8
[2023-01-05 08:25] LABS: African American GFR (CKD) >90 (>60 ml/min/1.73 sqM); Anion Gap 2 mmol/L; Blood Urea Nitrogen 22 mg/dL (7-17); Calcium 8.8 mg/dL (8.4-10.2); Carbon Dioxide 32 mmol/L (22-30); Chloride 101 mmol/L (98-107); Glucose 117 mg/dL (74-99); Non-African American GFR(CKD) 86 (>60 ml/min/1.73 sqM); Sodium 135 mmol/L (137-145)
[2023-01-05] MEDS: ATORVASTATIN 20 MG TAB PO SCH (08:27)
[2023-01-05] MEDS: SPIRONOLACTONE 25 MG TAB PO SCH (08:27)
[2023-01-05] MEDS: DILTIAZEM CD 180 MG CAP.ER.24H PO SCH (08:27)
[2023-01-05] MEDS: LORATADINE 10 MG TAB PO SCH (08:27)
[2023-01-05] MEDS: APIXABAN 2.5 MG TABLET PO SCH (08:27)
[2023-01-05] MEDS: FAMOTIDINE 20 MG TAB PO SCH (08:27)
[2023-01-05] MEDS: predniSONE 20 MG TAB PO SCH (08:27)
[2023-01-05] MEDS: FORMOTEROL FUMARATE 20 MCG/2 ML NEBU INHALATION SCH (08:57)
[2023-01-05] MEDS: BUDESONIDE 1 MG/2 ML NEBU INHALATION SCH (08:57)
[2023-01-05] MEDS: IPRATROPIUM-ALBUTEROL 3 ML NEB INHALATION SCH ×2 (08:57→12:11)
[2023-01-05 12:20] VITALS: BMI 22.1
--- NOTE | 2023-01-05 12:21 | P.PN ---
Subjective Progress Note Date: 01/05/23 I am seeing this patient in new consultation today 01/01/2023 for acute COPD exacerbation. Patient is a 82-year-old white female past medical history significant for severe oxygen and steroid dependent COPD, atrial fibrillation anticoagulated on Eliquis, GERD, and is a previous tobacco smoker. Patient no rmally manages her COPD with a combination of Symbicort and albuterol inhalers. She does follow with Dr. Navas in the office. Her baseline FEV1 is 37% predicted. Patient presented to the emergency room yesterday evening complaining of progressively worsening shortness of breath over the last 2-3 days. This is accompanied by a nonproductive cough. Patient denies any fevers, chills, myalgias, chest pain, hemoptysis. Denies sick contacts. patient is currently sitting up in bed, on 4 L/m nasal cannula, in no acute distress. Chest x-ray shows no acute infiltrates or evidence of pneumonia. There were chronic COPD like changes. CBC and BMP on arrival were unremarkable. Negative for influenza, RSV, COVID-19. Troponin less than 0.012. NT proBNP low. Plasma lactic acid level I.9. Patient was empirically started on doxycycline. Remains afebrile. Also, started on a combination of bronchodilators, Symbicort inhaler, and IV Solu-Medrol. Patient appears hemodynamically stable. The patient is seen today 01/02/2023 in follow-up on the regular medical floor. She is currently resting comfortably in bed. Awake and alert in no acute distress. Maintaining O2 saturations in the 90s on 3 L/m per nasal cannula. She is continued on DuoNeb inhalations, Symbicort, Solu-Medrol. Empiric antibiotics in the form of doxycycline. Anticoagulated with Eliquis. The patient is seen today 01/03/2023 in follow-up on the regular medical floor. She is awake and alert in no acute distress. She is still somewhat bronchospastic and wheezy. Not quite back to her baseline. Chest x-ray continues to show no acute pulmonary process. Evidence of COPD. White count 6.7. Hemoglobin 11.5. Platelet count 265. Sodium 133. Potassium 3.9. Bicarb 31. BUN 36. Creatinine 0.68. She is continued on DuoNeb inhalations, Symbicort, Solu-Medrol. Empiric antibiotics in the form of doxycycline. Anticoagulated with Eliquis. The patient is seen today 01/04/2023 in follow-up on the regular medical floor. She is currently resting in bed. Awake and alert in no acute distress. Proved but not quite back to her baseline. Maintaining O2 saturations in the 90s on 2 L/m per nasal cannula. Afebrile. Slightly tachycardic. Chest x-ray reveals COPD with some patchy basilar densities. Blood and sputum cultures reveal no growth. White count 0. Hemoglobin 11.2. Platelets 275. Sodium 141. Potassium 3.2. Bicarb 29. BUN 17. Creatinine 0.6. Glucose 146. She remains on DuoNeb inhalations, Pulmicort and reports inhalations, prednisone taper. Anticoagulated with Eliquis. The patient is seen today 01/05/2023 in follow-up on the regular medical floor. She is awake and alert in no acute distress. He is maintaining O2 saturations up to 100% on 3 L/m per nasal cannula. Afebrile. Hemodynamically stable. Blood culture revealed no growth. Sputum cultures revealed no growth. Sodium 135. Potassium 4.0. Bicarb 32. BUN 22. Creatinine 0.58. Glucose 86. She remains on DuoNeb inhalations, Pulmicort and reports inhalations, prednisone taper. Anticoagulated with Eliquis. Objective - Vital Signs Vital signs: Vital Signs Temp 97.8 F 01/05/23 07:51 Pulse 86 01/05/23 12:11 Resp 22 01/04/23 20:00 BP 100/68 01/05/23 07:51 Pulse Ox 100 01/05/23 08:59 FiO2 Intake & Output 01/04/23 01/05/23 01/05/23 18:59 06:59 18:59 Other: # Voids 1 1 - Exam GENERAL EXAM: Alert, pleasant 82-year-old female, on 3 L nasal cannula, fairly comfortable in no apparent distress. HEAD: Normocephalic. EYES: Normal reaction of pupils, equal size. NOSE: Clear with pink turbinates. THROAT: No erythema or exudates. NECK: No masses, no JVD. CHEST: No chest wall deformity. LUNGS: Equal air entry with expiratory wheeze, diminished. CVS: S1 and S2 normal with no audible murmur, regular rhythm. ABDOMEN: No hepatosplenomegaly, normal bowel sounds, no guarding or rigidity. SPINE: No scoliosis or deformity SKIN: No rashes CENTRAL NERVOUS SYSTEM: No focal deficits, tone is normal in all 4 extremities. EXTREMITIES: There is no peripheral edema. No clubbing, no cyanosis. Peripheral pulses are intact. - Labs CBC & Chem 7: 01/04/23 06:55 01/05/23 07:23 Labs: Abnormal Lab Results - Last 24 Hours (Table) 01/05/23 Range/Units 07:23 Sodium 135 L (137-145) mmol/L Carbon Dioxide 32 H (22-30) mmol/L BUN 22 H (7-17) mg/dL Glucose 117 H (74-99) mg/dL Microbiology - Last 24 Hours (Table) 01/01/23 00:43 Blood Culture - Preliminary Blood 01/03/23 21:00 Gram Stain - Preliminary Sputum Assessment and Plan Assessment: Acute on chronic hypoxemic respiratory failure, secondary to acute COPD exacerbation. Chest x-rays show no acute infiltrates or evidence of pneumonia. Negative for influenza, RSV, COVID-19. History of severe oxygen and steroid dependent COPD with a baseline FEV1 37% of predicted. History of previous tobacco use History of atrial fibrillation, anticoagulated on Eliquis, currently in normal sinus rhythm Hyperlipidemia History of gastroesophageal reflux disease Plan: The patient was seen and evaluated Labs and medications reviewed Cleared for discharge from pulmonary standpoint Continue her home pulmonary medications, oxygen Complete a prednisone taper Follow-up in our office in 1 week I have personally seen and examined the patient, performed the documentation and the assessment and plan as written. Number of minutes spent on the visit: 10.
[2023-01-05 12:23] VITALS: PULSE 90
--- NOTE | 2023-01-08 23:34 | P.DS ---
Providers Date of admission: 12/31/22 18:02 Expected date of discharge: 01/05/23 Attending physician: Antony Ryan MD Consults: 12/31/22 18:46 Consult Physician Routine Consulting Provider: Filipe Navas Reason/Comments: COPD exas with hypoxia Do you want consulting provider notified?: Yes, Notify in am Primary care physician: Haresh Almaraz Hospital Course: Final diagnosis Chronic obstructive pulmonary disease acute exacerbation with acute bronchitis Acute on chronic hypoxic respiratory failure, secondary to above Hypertension Hypokalemia GERD Former smoker History of paroxysmal atrial fibrillation, Currently rate controlled GI prophylaxis DVT prophylaxis Full code Discharge disposition Patient is being discharged in a stable condition with guarded prognosis to home. Patient will follow-up with Dr. Almaraz in the outpatient setting upon discharge. Patient is to continue with tapering dose of prednisone and outpatient follow-up with pulmonary as scheduled. Total time taken is greater than 35 minutes. Hospital course This is a 82-year-old female who was recently admitted with increasing shortness of breath with cough and being closely monitored. Patient being followed by pulmonary maintained on IV steroids which has been transitioned oral prednisone and will continue prednisone taper on discharge. Patient was treated empirically with antibiotics and will not require antibiotics on discharge. Patient has been cleared by consultations for discharge. Patient reports would like to go home. Please refer to consultation notes for further HPI. Currently no reports of chest pain, shortness of breath, or palpitations. Patient is afebrile. No reports of nausea or vomiting and patient is tolerating diet. Patient will be discharged home today. Physical exam: Gen: This is a 82-year-old female who is awake, alert and oriented 3, thin built, elderly appearing, well-developed HEENT: Head is atraumatic, normocephalic. Pupils equal, round. Sclerae is anicteric. NECK: Supple. No JVD. No lymphadenopathy. No thyromegaly. LUNGS: Diminished breath sounds bilaterally with some scattered rhonchi. No intercostal retractions. HEART: Regular rate and rhythm. No murmur. ABDOMEN: Soft. Bowel sounds are present. No masses. No tenderness. EXTREMITIES: No pedal edema. No calf tenderness. NEUROLOGICAL: Patient is awake, alert and oriented x3. Cranial nerves 2 through 12 are grossly intact. Please refer to medication reconciliation sheet for a list of medications. The impression and plan of care has been dictated by Heather Rivera, Nurse Practitioner as directed. Dr. Tyson MD I have performed a history and examination and MDM of this patient, discussed the same with the dictator, and agree with the dictator's assessment and plan as written ,documented as a scribe. Based on total visit time, I have performed more than 50% of the visit. Patient Condition at Discharge: Stable Plan - Discharge Summary Discharge Rx Participant: No New Discharge Prescriptions: New Ipratropium-Albuterol Nebulize [Duoneb 0.5 mg-3 mg/3 ml Soln] 3 ml INHALATION RT-QID 30 Days #120 each predniSONE 10 mg PO DIRECTED #30 tab Continue Loratadine [Claritin] 10 mg PO DAILY Famotidine [Pepcid] 20 mg PO BID Albuterol Inhaler [Ventolin Hfa Inhaler] 2 puff INHALATION RT-QID PRN PRN Reason: Shortness Of Breath traMADol HCL 50 mg PO BID PRN PRN Reason: Pain Rosuvastatin [Crestor] 10 mg PO DAILY Albuterol Nebulized [Ventolin Nebulized] 2.5 mg INHALATION RT-QID PRN PRN Reason: Shortness Of Breath Budesonide/Formoterol Fumarate [Symbicort 160-4.5 Mcg Inhaler] 2 puff INHALATION RT-BID Spironolactone 25 mg PO DAILY Magnesium Oxide [Mag-Ox] 400 mg PO HS Diltiazem Cd [Cardizem CD] 180 mg PO DAILY #30 cap Apixaban [Eliquis] 2.5 mg PO BID Ipratropium-Albuterol Nebulize [Duoneb 0.5 mg-3 mg/3 ml Soln] 3 ml INHALATION RT-QID PRN PRN Reason: Shortness Of Breath Discharge Medication List Albuterol Nebulized [Ventolin Nebulized] 2.5 mg INHALATION RT-QID PRN 10/01/20 [History] Famotidine [Pepcid] 20 mg PO BID 10/01/20 [History] Loratadine [Claritin] 10 mg PO DAILY 10/01/20 [History] Albuterol Inhaler [Ventolin Hfa Inhaler] 2 puff INHALATION RT-QID PRN 08/22/21 [History] Budesonide/Formoterol Fumarate [Symbicort 160-4.5 Mcg Inhaler] 2 puff INHALATION RT-BID 08/22/21 [History] Magnesium Oxide [Mag-Ox] 400 mg PO HS 06/06/22 [History] Spironolactone 25 mg PO DAILY 06/06/22 [History] traMADol HCL 50 mg PO BID PRN 06/06/22 [History] Diltiazem Cd [Cardizem CD] 180 mg PO DAILY #30 cap 06/13/22 [Rx] Apixaban [Eliquis] 2.5 mg PO BID 12/31/22 [History] Ipratropium-Albuterol Nebulize [Duoneb 0.5 mg-3 mg/3 ml Soln] 3 ml INHALATION RT-QID PRN 12/31/22 [History] Rosuvastatin [Crestor] 10 mg PO DAILY 12/31/22 [History] Ipratropium-Albuterol Nebulize [Duoneb 0.5 mg-3 mg/3 ml Soln] 3 ml INHALATION RT-QID 30 Days #120 each 01/05/23 [Rx] predniSONE 10 mg PO DIRECTED #30 tab 01/05/23 [Rx] Follow up Appointment(s)/Referral(s): Filipe Navas DO [Doctor of Osteopathic Medicine] - 02/08/23 2:15 pm Haresh Almaraz MD [Primary Care Provider] - 1-2 days (no longer a patient) Patient Instructions/Handouts: COPD (Chronic Obstructive Pulmonary Disease) (DC) Activity/Diet/Wound Care/Special Instructions: Activity Limited until follow-up Follow-up with pulmonary outpatient Continue taking medications as prescribed Discharge Disposition: HOME SELF-CARE
== END 2023-01-05 13:01 | disposition home or self-care (01) | DRG 190 ==
LOC: EC 15:39 → 4SSUR 18:02
PROVIDERS: ADMIT Internal Medicine; ATTEND Internal Medicine
PROC: 05HY33Z Insertion of Infusion Device into Upper Vein, Percutaneous Approach (ICD-10-PCS; principal; 2023-01-02 19:30)
DX: J44.0 Chronic obstructive pulmonary disease with (acute) lower respiratory infection (principal); J96.21 Acute and chronic respiratory failure with hypoxia; J44.1 Chronic obstructive pulmonary disease with (acute) exacerbation; I48.0 Paroxysmal atrial fibrillation; I11.0 Hypertensive heart disease with heart failure; I50.9 Heart failure, unspecified; Z20.822 Contact with and (suspected) exposure to COVID-19; J20.9 Acute bronchitis, unspecified; E78.5 Hyperlipidemia, unspecified; E83.42 Hypomagnesemia; E87.6 Hypokalemia; J30.2 Other seasonal allergic rhinitis; K21.9 Gastro-esophageal reflux disease without esophagitis; Z99.81 Dependence on supplemental oxygen; Z79.01 Long term (current) use of anticoagulants; Z79.51 Long term (current) use of inhaled steroids; Z79.899 Other long term (current) drug therapy; Z87.891 Personal history of nicotine dependence; Z88.0 Allergy status to penicillin
CPT/HCPCS: 36415; 71045; 71046; 80048; 80053; 81001; 83605; 83690; 83735; 83880; 84145; 84484; 85025; 85610; 85730; 87040; 87070; 87205; 87636; 93005; 94640; 94760; 96374; 99285

== ENCOUNTER 2023-08-03 06:46 | Day surgery (SDC) | payer MEDICARE ==
[~2023-08-03 06:46] MED LIST changes: -ALBUTEROL NEB (CONC) 2.5 MG/0.5 ML INHALATION ONE; -LACTATED RINGERS 1,000 ML IV SCH; -LIDOCAINE 1% (10MG/ML) FOR IV START INTRADERMA PRN; -LIDOCAINE 2% (PF) 20 MG/ML 5 ML VIAL INHALATION ONE; -LIDOCAINE VISCOUS 300 MG/15 ML CUP MUCOUS MEM ONE
[2023-08-03] MEDS ORDERED: LIDOCAINE 1% (10MG/ML) FOR IV START INTRADERMA PRN (07:23)
[2023-08-03] MEDS ORDERED: LACTATED RINGERS 1,000 ML IV SCH (07:23)
[2023-08-03] MEDS ORDERED: PROPOFOL 10 MG/ML 20 ML VIAL IV ONE (07:30)
[2023-08-03] MEDS ORDERED: ALBUTEROL HFA INHALER INHALATION ONE (07:30)
[2023-08-03] MEDS ORDERED: DEXAMETHASONE SOD PHOSPHATE 10 MG/ML 1 ML VIAL ONE (07:30)
[2023-08-03] MEDS ORDERED: LIDOCAINE 1% INJ 10MG/ML (20 ML MDV) ONE (07:30)
[2023-08-03] MEDS: LACTATED RINGERS 1,000 ML IV SCH (07:34)
[2023-08-03 07:35] LABS: Glucose,Whole Blood 104 mg/dL (70-110)
[2023-08-03] MEDS: LIDOCAINE 2% (PF) 20 MG/ML 2 ML VIAL INHALATION ONE (07:44)
[2023-08-03] MEDS: methylPREDNISolone SOD SUCCI 125 MG/2 ML VIAL IVP ONE (08:21)
[2023-08-03] MEDS: LORazepam 2 MG/ML INJ IV ONE (08:21)
--- NOTE | 2023-08-03 08:27 | PCN ---
PROCEDURE NOTE PROCEDURES PERFORMED: Bronchoscopy, airway examination, therapeutic lavage, BAL right middle lobe. PREOPERATIVE DIAGNOSES: Severe COPD, retained secretions, pneumonia. POSTOPERATIVE DIAGNOSES: Severe COPD, retained secretions, pneumonia. ANESTHESIOLOGIST: Manpreet Alexander CRNA provided general anesthesia. The patient's procedure was done in room #1. There was informed consent and universal timeout. GLEASON GEAR GENERATOR: Dr. Navas. FIRST DAMPER WORKER: Dr. Marion Hall. DESCRIPTION OF PROCEDURE: After the patient was adequately sedated, the bronchoscope was inserted through the right nostril. It passed through the right nasopharynx into the oropharynx. The hypopharynx was identified and topicalized. The hypopharyngeal structures, including anterior commissure, true cords, false cords, arytenoids, piriform sinuses, right and left, and epiglottis appeared relatively normal. There were some secretions that pooled in the piriform sinuses, both right and left. Next, after topicalization of the glottic opening, the bronchoscope was inserted through the glottic opening into the trachea. Trachea appeared normal. There were thick secretions noted in the distal trachea. There was no tracheal mass or tumor. Next the right and left mainstem were topicalized. Tracheal jad was sharp. The right upper lobe and its 3 segments, right middle lobe and its 2 segments, right lower lobe and its 5 segments, left upper lobe proper and its 2 segments, lingula and its 2 segments, and the left lower lobe and its 4 segments all had similar findings of diffuse airway, erythema, and hyperemia. There was bronchitis throughout. It was moderate in severity. There was some vascular engorgement. There was no mass or tumor. The patient was then actively bleeding. The bronchoscope was then wedged into the right middle lobe. We did a formal BAL. 35 cc of fluid was recovered. It was turbid. The fluid will be sent for analysis including cytology and microbiology. The patient tolerated the procedure well. Additional secretions were suctioned with the aid of saline lavage. The bronchoscope was withdrawn. The patient will be recovered. There was no immediate complication. MMODL / IJN: [id number] /
[2023-08-03 08:37] VITALS: TEMP 98.2
[2023-08-03] MEDS: IPRATROPIUM-ALBUTEROL 3 ML NEB INHALATION STA (09:07)
[2023-08-03] MEDS: methylPREDNISolone ACETATE 80 MG/ML 1 ML VIAL IM ONE (10:01)
[2023-08-03] MEDS: ALBUTEROL NEBULIZED 2.5 MG/3 ML INHALATION ONE (12:10)
[2023-08-03 14:13] VITALS: PULSE 90
[2023-08-03 14:54] VITALS: BP 126/78; RESP 20
[2023-08-03 17:01] LABS: Appearance,BF Cloudy (Clear); RBC, Body Fluid 190 /UL (0-2000)
[2023-08-06 10:19] LABS: Nucleated Cells, Body Fluid 180 /UL
== END 2023-08-03 14:50 | disposition home or self-care (01) ==
LOC: ORWHC2ENDO 06:46
PROVIDERS: ATTEND Internal Medicine Critical Care Medicine
DX: J44.0 Chronic obstructive pulmonary disease with (acute) lower respiratory infection (principal); J18.9 Pneumonia, unspecified organism; I10 Essential (primary) hypertension; E78.5 Hyperlipidemia, unspecified; I48.91 Unspecified atrial fibrillation; F41.9 Anxiety disorder, unspecified; K21.9 Gastro-esophageal reflux disease without esophagitis; Z88.0 Allergy status to penicillin; Z79.01 Long term (current) use of anticoagulants; Z82.49 Family history of ischemic heart disease and other diseases of the circulatory system; Z83.3 Family history of diabetes mellitus; J96.11 Chronic respiratory failure with hypoxia; J96.90 Respiratory failure, unspecified, unspecified whether with hypoxia or hypercapnia; Z79.51 Long term (current) use of inhaled steroids; Z79.899 Other long term (current) drug therapy
CPT/HCPCS: 87798 ×3; 87496; 87498; 87529; 88108; 88305; 89050; 87502; 87634; 87070; 87205; 87116; 87102; 87206; 87635; 31624; J2060; J1040; J1100; J2930; J2001 ×2; J2704